=== PATIENT | female | born 1935 | race Caucasian/White ===

== ENCOUNTER 2017-05-02 20:54 | Inpatient (IN) ==
[2017-05-03] MEDS ORDERED: Ondansetron 4 MG/2 ML VIAL IVP PRN (00:52)
[2017-05-03] MEDS ORDERED: Naloxone 0.4 MG/ML INJ IVP PRN ×2 (00:52→18:24)
[2017-05-03] MEDS ORDERED: *HR* HYDROmorphone (PF) 1 MG/ML SYRINGE IVP PRN (00:52)
[2017-05-03] MEDS ORDERED: *HR* Dextrose 50 % in Water (Syg) 50 ML SYRINGE IVP PRN (01:00)
[2017-05-03] MEDS ORDERED: Dextrose Gel 15 GM PO PRN ×2 (01:00)
[2017-05-03] MEDS ORDERED: D5% in Water 1,000 ML IVC PRN (01:00)
--- NOTE | 2017-05-03 01:06 | Internal Med History&Physical ---
Date of Encounter: 05/03/17 Time of Encounter: 23:30 Assessment and Plan (1) Hip fracture, left Current visit: Yes Status: Acute CT left hip reported mildly displaced intertrochanteric fracture of the left hip with fracture through the lesser trochanter Orthopedic surgery consulted prior to transfer Continue pain control Nothing by mouth at this time for possible surgery in a.m. Hold Xarelto at this time. Qualifiers: Encounter type: initial encounter Fracture type: closed Qualified Code(s) : S72.002A - Fracture of unspecified part of neck of left femur, initial encounter for closed fracture (2) Atrial fibrillation Current visit: Yes Status: Chronic Rate controlled with beta lizzy, will continue Anticoagulated with Xarelto, will hold at this time Qualifiers: Atrial fibrillation type: chronic Qualified Code(s): I48.2 - Chronic atrial fibrillation (3) Hypertension Current visit: Yes Status: Chronic BP within acceptable range Continue home medications Qualifiers: Hypertension type: essential hypertension Qualified Code(s): I10 - Essential (primary) hypertension (4) TIA (transient ischemic attack) Current visit: Yes Status: Chronic Qualifiers: Transient cerebral ischemia type: unspecified Qualified Code(s): G45.9 - Transient cerebral ischemic attack, unspecified (5) Leukocytosis Current visit: Yes Status: Acute Likely reactive UA and CXR negative Patient afebrile will monitor off antibiotics at this time Qualifiers: Leukocytosis type: unspecified Qualified Code(s): D72.829 - Elevated white blood cell count, unspecified (6) Diabetes mellitus Current visit: Yes Status: Chronic Continue IV fluids Sliding-scale insulin algorithm as needed Hold oral antihyperglycemic agents at this time Accu-Checks every 6 hours while nothing by mouth We will closely monitor fingersticks and blood glucose Qualifiers: Diabetes mellitus type: type 2 Diabetes mellitus complication status: with unspecified complications Diabetes mellitus detention insulin use: without long lines operator use Qualified Code(s): E11.8 - Type 2 diabetes mellitus with unspecified complications (7) DVT prophylaxis Current visit: Yes Status: Acute IPCD Internal Medicine - H&P: HPI Chief complaint: transferred from [facility] for hip fracture Admitted From: Hospital to Hospital Transfer Plans for Post Hospital Care: Transfer [facility] Facility History of present illness: Ms. Gunn is a 81 year old female with PMH of diabetes, anemia, hyperlipidemia , hypothyroidism, TIA, atrial fibrillation on anticoagulation, hypertension, GERD, osteoarthritis, depression who was transferred from [facility] for management of left hip fracture. Patient was reported to have a mechanical fall, sustaining a fall to the head, and left hand, and left hip. CT head was negative for any intracranial bleed, CT left hip showed mildly displaced intertrochanteric fracture, and no fractures of the left hand were reported. Patient was closely monitored for any acute neurological change given the head trauma and patient being on anticoagulation. Repeat CT head was done after patient's arrival to [facility], which remained negative for any intracranial bleed. Patient's pain is controlled with IV pain medications. Patient denies any headache, lightheadedness, dizziness, chest pain, shortness of breath, abdominal pain, nausea, vomiting, fever, or chills. As per family, present at that site, patient was initially alert, oriented 3. However during my evaluation patient was only oriented to self, due to which a repeat CT head was obtained. Repeat CT head was negative for any intracranial abnormality or any acute bleeds. Patient had received 2 doses of IV morphine prior to her transfer, which could be contributing to her mental status change. Patient's vitals remained within acceptable range. No other neurological deficit was noted. Orthopedic surgery was called prior to transfer, Dr. Romano agreed to accept the patient has a consult. Patient's CODE STATUS is full code. Past Med Surg Social Fam HX - Past Medical History Medical history: atrial fibrillation, CVA, diabetes, hypertension, thyroid disease Psychiatric history: depression - Past Surgical History Surgical History: hysterectomy, orthopedic, other - Social History Smoking Status: Former smoker Alcohol use: none Drug use: none - Family History Sister Living Status: Cause of : cancer Hx Family Cancer: Yes Mother Living Status: Age at : 91 Hx Family Cancer: Yes (leukemia) Internal Medicine - H&P: Meds Atorvastatin Calcium [Lipitor] 20 mg PO 05/02/17 [History] Calcium Carbonate/Vitamin D3 [Oyster Shell Calcium-Vit D Tab] 05/02/17 [History ] Cholecalciferol (Vitamin D3) [Vitamin D] 1,000 unit PO 05/02/17 [History] Cyanocobalamin (Vitamin B-12) [Vitamin B-12] 1,000 mcg SL 05/02/17 [History] Duloxetine HCl [Cymbalta] 60 mg PO 05/02/17 [History] Folic Acid 1 mg PO DAILY 05/02/17 [History] HYDROcodone/Acet 10/325 mg [[place] 10-325 mg] 05/02/17 [History] Levothyroxine [Synthroid] 100 mcg PO 05/02/17 [History] Magnesium Oxide [Magnesium] 400 mg PO 05/02/17 [History] Metformin HCl [Metformin HCl ER] 1,000 mg PO BID 05/02/17 [History] Methocarbamol [Robaxin-750] 05/02/17 [History] Omeprazole 20 mg PO 05/02/17 [History] Pioglitazone HCl [Actos] 30 mg PO 05/02/17 [History] Potassium Chloride [K-Tab ER] 20 meq PO 05/02/17 [History] Rivaroxaban [Xarelto] 20 mg PO 05/02/17 [History] Sotalol [Betapace] 80 mg PO Q12HR 05/02/17 [History] predniSONE [PredniSONE] 10 mg PO DAILY 05/02/17 [History] 3 Allergy/AdvReac Type Severity Reaction Status Date / Time amiodarone Allergy Nausea Verified 05/02/17 23:35 Penicillins Allergy Hives Verified 05/02/17 23:35 Pneumococcal Vaccine Allergy See Verified 05/02/17 23:35 Comments Streptomycin Allergy Anaphylaxis Verified 05/02/17 23:35 Tetanus Vaccines and Toxoid Allergy See Verified 05/02/17 23:35 Comments All Systems PM: A 10-system review of systems was performed and is negative for pertinent findings except as documented above in the HPI. - Constitutional Constitutional: as per HPI - Constitutional Vitals: Temp Pulse Resp BP Pulse Ox 97.5 F L 90 18 117/71 97 05/02/17 23:24 05/02/17 23:24 05/02/17 23:24 05/02/17 23:24 05/02/17 23:24 General appearance: Present: A&O X 1, no acute distress, obese - Head Head exam: Present: atraumatic, normocephalic - Eye Eye exam: Present: conjuntiva pink, sclera anicteric Pupils: Present: miosis (Pinpoint pupils) - Respiratory Respiratory exam: Present: CTAB. Absent: accessory muscle use, rales, rhonchi, wheezes - Cardiovascular Cardiovascular exam: Present: RRR, +S1, +S2. Absent: diastolic murmur, gallop, rubs, systolic murmur - GI/Abdominal GI/Abdominal exam: Present: normal bowel sounds, soft, no peritoneal signs. Absent: distended, tenderness - Extremities Exam Extremities exam: Present: pedal edema, warm, radial pulses palpable and symmetrical. Absent: calf tenderness - Neurological Exam Neurological exam: Present: alert Internal Med - H&P Results - Labs CBC & Chem 7: 05/03/17 01:30 05/03/17 01:30 - Impressions ITS Impressions Head CT 05/03/17 23:37 IMPRESSION: No acute intracranial abnormality. 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 D/ / Duane Richter MD / Duane Richter MD Interpreting Provider: Duane Richter MD
[2017-05-03] MEDS: 0.9 % Sodium Chloride 1,000 ML IVC SCH ×2 (01:32→22:03)
[2017-05-03] MEDS: *HR* Morphine 2 MG/ML SYRINGE IVP PRN ×2 (01:37→09:21)
[2017-05-03 01:38] LABS: Basophils # 0.1 K/mcL (0.0-0.2); Basophils % 0.3 %; Eosinophils % 0.2 %; Hematocrit 33.7 % (35.3-44.9); Immature Granulocytes % 0.9 % (0-4); Immature Platelets 4.5 % (1.1-6.1); Lymphocytes # 1.5 K/mcL (0.6-4.6); Lymphocytes % 8.8 %; Mean Corpuscular HGB Conc 29.7 g/dL (31.6-35.5); Mean Corpuscular Volume 87.8 fL (83.0-100.0); Mean Platelet Volume 10.2 fL (9.4-12.4); Monocytes # 1.6 K/mcL (0.0-1.3); Monocytes % 9.3 %; Neutrophils # 13.6 K/mcL (1.6-8.9); Platelet Count 244 K/mcL (140-400); Red Blood Count 3.84 M/mcL (3.82-4.97); Red Cell Distribution Width 14.6 % (11.5-14.5); Segmented Neutrophils % 80.5 %
[2017-05-03 01:44] LABS: INR 1.4; Prothrombin Time 15.7 Seconds (9.4-12.1)
[2017-05-03 01:51] LABS: Alanine Aminotransferase 18 Units/L (0-55); Albumin/Globulin Ratio 1.1 (1.1-2.2); Alkaline Phosphatase 64 Units/L (38-126); Aspartate Amino Transferase 20 Units/L (5-34); BUN/Creatinine Ratio 34 (6-26); Bilirubin,Total 0.4 mg/dL (0.2-1.2); Blood Urea Nitrogen 31 mg/dL (7-20); Calcium 8.7 mg/dL (8.6-10.8); Carbon Dioxide 28 mEq/L (19-29); Chloride 104 mEq/L (98-109); Globulin 2.8 g/dL (2.4-3.5); Glucose 164 mg/dL (70-99); Osmolality,Calculated 306 (280-300); Phosphorous 4.6 mg/dL (2.3-4.7); Potassium 4.5 mEq/L (3.5-4.5); Sodium 143 mEq/L (136-145); Total Protein 5.8 g/dL (6.0-8.3); eGFR For African Americans > 60 (> 60); eGFR For Non-African Americans > 60 (> 60)
[2017-05-03] MEDS: Magnesium Sulfate 2 GM in D5% in Water 100 ML IVPB SCH ×2 (02:15→06:42)
[2017-05-03] MEDS: Insulin LISPRO 300 UNITS/3 ML VIAL SQ SCH ×3 (06:34→22:11)
--- NOTE | 2017-05-03 07:44 | Orthopedic Consult Note ---
Date of Encounter: 05/03/17 Time of Encounter: 07:51 Assessment and Plan (1) Hip fracture, left Current Visit: Yes Status: Acute I did discuss the diagnosis in great detail with the patient as well as her son who is power of ip technology transactions attorney. The patient does have a left subtrochanteric hip fracture. Treatment options were discussed and the recommendation was for reduction and internal fixation in order to stabilize the left proximal femur with a goal of controlling her pain and hoping to facilitate nursing care. The risks discussed included but were not limited to stiffness, bleeding, infection , blood clots, damage to neurovascular structures, tendons, ligaments, and bone. Also discussed was the risk of continued symptoms and possible need for further procedures. I did discuss the anesthesia risks including stroke, heart attack, and . The patient is aware of the risk of requiring a blood transfusion especially given her low hemoglobin preoperatively. I did discuss the reasonable, foreseeable postoperative course with the patient which will likely include a stay at a long-term facility for rehabilitation. I did discuss the risks of malunion, nonunion, hardware failure, and wound healing issues. She is on Xarelto and has been off this for about 24 hours. My recommendation is to proceed with internal fixation of the left hip later this afternoon pending medical clearance. I explained this all to the patient in simple terms and they did wish to proceed and consent was obtained. Qualifiers: Encounter type: initial encounter Fracture type: closed Qualified Code(s) : S72.002A - Fracture of unspecified part of neck of left femur, initial encounter for closed fracture History of Present Illness HPI: Ms. Gunn is a 81 year old female with diabetes, anemia, hyperlipidemia, hypothyroidism, history of TIA, atrial fibrillation on xarelto, hypertension, GERD, osteoarthritis, and depression. It has been about 24 hours since her last dose of Xarelto. She lives independently in a private residence and is a walker assisted ambulator. She was seen at [facility] after a non-syncopal fall while trying to reach for a comb. She is transferred to our institution for definitive management after being found to have a left subtrochanteric hip fracture. On my evaluation she is complaining of isolated pain localized to the left proximal thigh and groin region. She did sustain some superficial skin tears to the right hand without any fractures identified. She also had some left hand pain without any fractures identified as well. She denies any headaches, neck pain, chest pain, abdominal pain, bilateral upper extremity pain otherwise, and right lower extremity pain. She denies any left knee ankle or foot pain. No numbness, tingling, or any other associated signs or symptoms. She says the left lower extremity pain is significantly worse with any movement and better at rest. No other modifying factors. Past Med Surg Social Fam HX - Past Medical History Medical history: atrial fibrillation, CVA, diabetes, hypertension, thyroid disease Psychiatric history: depression - Past Surgical History Surgical History: hysterectomy, orthopedic, other - Social History Smoking Status: Former smoker Alcohol use: none Drug use: none - Family History Sister Living Status: Cause of : cancer Hx Family Cancer: Yes Mother Living Status: Age at : 91 Hx Family Cancer: Yes (leukemia) Medications and Allergies Atorvastatin Calcium [Lipitor] 20 mg PO DAILY 05/02/17 [History] Calcium Carbonate/Vitamin D3 [Oyster Shell Calcium-Vit D Tab] 1 tab PO DAILY [History] Cholecalciferol (Vitamin D3) [Vitamin D] 1,000 unit PO DAILY 05/02/17 [History] Cyanocobalamin (Vitamin B-12) [Vitamin B-12] 1,000 mcg SL DAILY 05/02/17 [ History] Duloxetine HCl [Cymbalta] 60 mg PO DAILY 05/02/17 [History] Folic Acid 1 mg PO DAILY 05/02/17 [History] HYDROcodone/Acet 10/325 mg [[place] 10-325 mg] 1 tab PO Q4H PRN 05/02/17 [History] Levothyroxine [Synthroid] 100 mcg PO DAILY 05/02/17 [History] Magnesium Oxide [Magnesium] 400 mg PO DAILY 05/02/17 [History] Metformin HCl [Metformin HCl ER] 1,000 mg PO BID 05/02/17 [History] Omeprazole 20 mg PO DAILY 05/02/17 [History] Pioglitazone HCl [Actos] 30 mg PO DAILY 05/02/17 [History] Potassium Chloride [K-Tab ER] 20 meq PO DAILY 05/02/17 [History] Rivaroxaban [Xarelto] 20 mg PO DAILY 05/02/17 [History] Sotalol [Betapace] 80 mg PO Q12HR 05/02/17 [History] predniSONE [PredniSONE] 10 mg PO DAILY 05/02/17 [History] 3 Allergy/AdvReac Type Severity Reaction Status Date / Time amiodarone Allergy Nausea Verified 05/02/17 23:35 Penicillins Allergy Hives Verified 05/02/17 23:35 Pneumococcal Vaccine Allergy See Verified 05/02/17 23:35 Comments Streptomycin Allergy Anaphylaxis Verified 05/02/17 23:35 Tetanus Vaccines and Toxoid Allergy See Verified 05/02/17 23:35 Comments All Systems Reviewed: Constitutional and musculoskeletal systems were reviewed and are negative unless otherwise stated in history of present illness. Physical Exam - Constitutional Vitals: Temp Pulse Resp BP Pulse Ox 97.6 F 85 16 130/78 93 05/03/17 06:42 05/03/17 06:42 05/03/17 06:42 05/03/17 06:42 05/03/17 06:42 Constitutional -Vitals reviewed -The patient is well developed and well nourished. -Mood is pleasant. -The patient is well groomed. Psychiatric -The patient is fully alert and oriented x 3. Respiratory: -Respiratory effort normal Abdomen: -Soft abdomen -Non tender -Non distended: Left upper extremity: -Mild ecchymosis on the left hand dorsum. -No tenderness to palpation throughout. -No significant pain with passive motion of the shoulder, elbow, wrist, and fingers within the limits of the bed. -Able to make an "OK" sign, cross the index and long fingers, and extend the thumb. -Sensation grossly intact to light touch throughout the median, radial, and ulnar distributions. -Radial pulse is present; Fingers have good capillary refill. Right upper extremity: -Multiple small superficial skin tears to the dorsum of the hand. -Mild tenderness to palpation over the right hand. -No significant pain with passive motion of the shoulder, elbow, wrist, and fingers within the limits of the bed. -Able to make an "OK" sign, cross the index and long fingers, and extend the thumb. -Sensation grossly intact to light touch throughout the median, radial, and ulnar distributions. -Radial pulse is present; Fingers have good capillary refill. Left lower extremity: -The extremity is mildly shortened and externally rotated. The overlying skin is intact. -There is tenderness in the groin region as well as the proximal lateral thigh. -I did not range the hip due to the known fracture. -No tenderness along the distal thigh, leg, ankle, foot, or toes. -Able to dorsiflex and plantarflex the ankle and toes. -Sensation is grossly intact to light touch throughout the sural, saphenous, superficial peroneal, and deep peroneal distributions. -Toes have good capillary refill. Right lower extremity: -No deformities. The overlying skin is intact. No obvious signs of acute trauma. -No tenderness to palpation throughout. -No pain with passive motion of the hip, knee, ankle, and toes within the limits of the bed. -No pain with axial loading of the thigh. -Able to dorsiflex and plantarflex the ankle and toes. -Sensation is grossly intact to light touch throughout the sural, saphenous, superficial peroneal, and deep peroneal distributions. -Toes have good capillary refill. Diagnostic Imaging: I did personally review and interpret x-rays of the pelvis and left femur which demonstrated a subtrochanteric hip fracture with displacement of the proximal fragment. CT scan of the head and neck did not show any acute findings. Results - Labs Result Diagrams: 05/03/17 06:49 05/03/17 06:49 Labs: Abnormal lab results WBC 16.9 K/mcL (4.3-11.1) H 05/03/17 01:30 Hgb 10.0 g/dL (11.5-15.4) L 05/03/17 01:30 Hct 33.7 % (35.3-44.9) L 05/03/17 01:30 MCH 26.0 pg (28.0-33.3) L 05/03/17 01:30 MCHC 29.7 g/dL (31.6-35.5) L 05/03/17 01:30 RDW 14.6 % (11.5-14.5) H 05/03/17 01:30 Neutrophils # 13.6 K/mcL (1.6-8.9) H 05/03/17 01:30 Monocytes # 1.6 K/mcL (0.0-1.3) H 05/03/17 01:30 PT 15.7 Seconds (9.4-12.1) H 05/03/17 01:30 BUN 31 mg/dL (7-20) H 05/03/17 01:30 BUN/Creatinine Ratio 34 (6-26) H 05/03/17 01:30 Glucose 164 mg/dL (70-99) H 05/03/17 01:30 POC Glucose 175 (58-89) H 05/02/17 23:28 Calculated Osmolality 306 (280-300) H 05/03/17 01:30 Magnesium 1.0 mg/dL (1.6-2.6) L 05/03/17 01:30 Serum Total Protein 5.8 g/dL (6.0-8.3) L 05/03/17 01:30 Albumin 3.0 g/dL (3.5-5.0) L 05/03/17 01:30 H & H 05/03/17 Range/Units 01:30 Hgb 10.0 L (11.5-15.4) g/dL Hct 33.7 L (35.3-44.9) % All other labs normal. Consult Discharge Plan - Plan Referrals: NONE,PCP [Primary Care Provider] -
[2017-05-03 08:17] LABS: BUN/Creatinine Ratio 34 (6-26); Blood Urea Nitrogen 29 mg/dL (7-20); Calcium 8.4 mg/dL (8.6-10.8); Carbon Dioxide 27 mEq/L (19-29); Chloride 105 mEq/L (98-109); Glucose 162 mg/dL (70-99); Magnesium 1.7 mg/dL (1.6-2.6); Osmolality,Calculated 303 (280-300); Phosphorous 4.3 mg/dL (2.3-4.7); Potassium 4.4 mEq/L (3.5-4.5); Sodium 142 mEq/L (136-145); eGFR For African Americans > 60 (> 60); eGFR For Non-African Americans > 60 (> 60)
[2017-05-03 09:19] LABS: Basophils % 0.3 %; Eosinophils # 0.1 K/mcL (0.0-0.6); Eosinophils % 0.5 %; Hematocrit 30.2 % (35.3-44.9); Immature Granulocytes % 0.8 % (0-4); Lymphocytes # 1.6 K/mcL (0.6-4.6); Lymphocytes % 11.8 %; Mean Corpuscular HGB Conc 29.8 g/dL (31.6-35.5); Mean Corpuscular Hemoglobin 26.2 pg (28.0-33.3); Mean Platelet Volume 11.1 fL (9.4-12.4); Monocytes # 1.4 K/mcL (0.0-1.3); Monocytes % 10.3 %; Neutrophils # 10.2 K/mcL (1.6-8.9); Platelet Count 216 K/mcL (140-400); Red Blood Count 3.43 M/mcL (3.82-4.97); Red Cell Distribution Width 14.7 % (11.5-14.5); Segmented Neutrophils % 76.3 %
[2017-05-03] MEDS: predniSONE 10 MG TABLET PO SCH (09:20)
[2017-05-03] MEDS: Magnesium Oxide 400 MG TABLET PO SCH (09:20)
--- NOTE | 2017-05-03 14:58 | Anesthesia Evaluation PreOp ---
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: TIA Other Medical History: Diabetes Type II, Thyroid (Hypothyroid) Anesthesia History: Past Anesthesia (back sx 2-3 years ago), Problems (slow to wake up, had to remain intubated for hours after back sx) : No Alcohol Use: none Drug use: none Medications and Allergies Atorvastatin Calcium [Lipitor] 20 mg PO DAILY 05/02/17 [History] Calcium Carbonate/Vitamin D3 [Oyster Shell Calcium-Vit D Tab] 1 tab PO DAILY [History] Cholecalciferol (Vitamin D3) [Vitamin D] 1,000 unit PO DAILY 05/02/17 [History] Cyanocobalamin (Vitamin B-12) [Vitamin B-12] 1,000 mcg SL DAILY 05/02/17 [ History] Duloxetine HCl [Cymbalta] 60 mg PO DAILY 05/02/17 [History] Folic Acid 1 mg PO DAILY 05/02/17 [History] HYDROcodone/Acet 10/325 mg [[place] 10-325 mg] 1 tab PO Q4H PRN 05/02/17 [History] Levothyroxine [Synthroid] 100 mcg PO DAILY 05/02/17 [History] Magnesium Oxide [Magnesium] 400 mg PO DAILY 05/02/17 [History] Metformin HCl [Metformin HCl ER] 1,000 mg PO BID 05/02/17 [History] Omeprazole 20 mg PO DAILY 05/02/17 [History] Pioglitazone HCl [Actos] 30 mg PO DAILY 05/02/17 [History] Potassium Chloride [K-Tab ER] 20 meq PO DAILY 05/02/17 [History] Rivaroxaban [Xarelto] 20 mg PO DAILY 05/02/17 [History] Sotalol [Betapace] 80 mg PO Q12HR 05/02/17 [History] predniSONE [PredniSONE] 10 mg PO DAILY 05/02/17 [History] 3 Allergy/AdvReac Type Severity Reaction Status Date / Time amiodarone Allergy Nausea Verified 05/02/17 23:35 Penicillins Allergy Hives Verified 05/02/17 23:35 Pneumococcal Vaccine Allergy See Verified 05/02/17 23:35 Comments Streptomycin Allergy Anaphylaxis Verified 05/02/17 23:35 Tetanus Vaccines and Toxoid Allergy See Verified 05/02/17 23:35 Comments - Meds/Allergy Pre-op Review Medications Reviewed: Yes Allergies Reviewed: Yes Beta Blockers on Current Med List: Yes If Beta Blockers taken, Date/Time (Last Dose taken): 06:34 05/03/2017 Anesthesia Results - Labs 05/03/17 06:49 05/03/17 06:49 - Imaging EKG: image reviewed (SR) Anesthesia Exam O2 Sat Height 1.6 m Weight 79.832 kg O2 Sat by Pulse Oximetry 93 O2 Sat by Pulse Oximetry 93 O2 Sat by Pulse Oximetry 100 O2 Sat by Pulse Oximetry 97 Vital Signs Temp Pulse Resp BP Pulse Ox 97.5 F L 90 18 117/71 97 05/02/17 23:24 05/02/17 23:24 05/02/17 23:24 05/02/17 23:24 05/02/17 23:24 Vital Signs/O2 Sat, Most Current Temp Pulse Resp BP Pulse Ox 98.5 F 83 16 132/78 93 05/03/17 11:13 05/03/17 11:13 05/03/17 11:13 05/03/17 11:13 05/03/17 11:13 Height: 5'3'' Weight: 176# NPO (# of Hours): > 8 hrs Pain Scale: 0 Pain Scale Used: Numeric (1 - 10) - HEENT Pupil (Motor): Pupils equal, EOMI Mallampati: III Teeth: Normal Oral Opening: Greater than 3 - TECHNICIAN AUTOMATIC LOC: Oriented TECHNICIAN AUTOMATIC Motor: Normal RUE, Normal LUE, Normal RLE, Normal LLE, Normal Face TECHNICIAN AUTOMATIC Sensory: Normal: RUE, LUE, RLE, LLE, Face - Cardiac Rhythm: Regular Murmur: None JVD: No Carotid Bruit: No - Pulmonary Breath Sounds: bilateral Clear Respiratory Effort: Symmetrical Anesthesia Assess/Plan ASA Score: 3 Modified [place] Scale for Level of Consciousness: Cooperative, oriented, and tranquil Anesthetic Plan: General Autologous Blood: Yes Monitoring Plan: Standard Monitors Recovery Plan: PACU
[2017-05-03] MEDS ORDERED: *HR* Midazolam HCl 2 MG/2 ML VIAL ONE (15:34)
[2017-05-03] MEDS ORDERED: *HR* FentaNYL (PF) 100 MCG/2 ML VIAL ONE (15:34)
[2017-05-03] MEDS ORDERED: *HR* Propofol 200 MG/20 ML VIAL IVP ONE (15:34)
--- NOTE | 2017-05-03 16:40 | Internal Med Progress Note ---
Date of Encounter: 05/03/17 Time of Encounter: 08:30 - Assessment and plan (1) Hip fracture, left Current Visit: Yes Status: Acute Assessment and plan: Plan for surgery later today. Continue supportive care and pain control. Patient cleared from a medical standpoint for surgery at this time. At intermediate risk for complications. Qualifiers: Encounter type: initial encounter Fracture type: closed Qualified Code(s) : S72.002A - Fracture of unspecified part of neck of left femur, initial encounter for closed fracture (2) Leukocytosis Current Visit: Yes Status: Acute Assessment and plan: Improving. Likely due to acute fracture. Qualifiers: Leukocytosis type: unspecified Qualified Code(s): D72.829 - Elevated white blood cell count, unspecified (3) Atrial fibrillation Current Visit: Yes Status: Chronic Assessment and plan: Rate controlled. Holding anticoagulation at this time Qualifiers: Atrial fibrillation type: chronic Qualified Code(s): I48.2 - Chronic atrial fibrillation (4) Hypertension Current Visit: Yes Status: Chronic Assessment and plan: Blood pressure is well controlled Qualifiers: Hypertension type: essential hypertension Qualified Code(s): I10 - Essential (primary) hypertension (5) TIA (transient ischemic attack) Current Visit: No Status: Chronic Assessment and plan: Prior TIA. Qualifiers: Transient cerebral ischemia type: unspecified Qualified Code(s): G45.9 - Transient cerebral ischemic attack, unspecified (6) DVT prophylaxis Current Visit: Yes Status: Acute (7) Diabetes mellitus Current Visit: Yes Status: Chronic Assessment and plan: Monitor blood sugars. Continue sliding scale insulin Qualifiers: Diabetes mellitus type: type 2 Diabetes mellitus complication status: with unspecified complications Diabetes mellitus superintendent terminal insulin use: without superintendent terminal use Qualified Code(s): E11.8 - Type 2 diabetes mellitus with unspecified complications (8) Anemia Current Visit: Yes Status: Chronic Assessment and plan: Patient has chronic anemia with baseline hemoglobin between 8-10. Patient has had iron deficiency. We will monitor blood counts closely. Transfuse if needed post surgery. Will check iron, folic acid and vitamin B12 levels. Qualifiers: Anemia type: unspecified type Qualified Code(s): D64.9 - Anemia, unspecified - Subjective Interval history: Patient complains of pain in left lower extremity. Controlled with pain medications that she is receiving. Has been evaluated by orthopedics and scheduled for surgery later today. - Constitutional Vitals: Temp Pulse Resp BP Pulse Ox 98.5 F 83 16 132/78 93 05/03/17 11:13 05/03/17 11:13 05/03/17 11:13 05/03/17 11:13 05/03/17 11:13 General appearance: Present: A&O X 1, no acute distress, obese, answers questions appropriately - Neck Neck exam general surgery: Present: supple, trachea midline. Absent: lymphadenopathy - Respiratory Respiratory exam: Present: CTAB. Absent: accessory muscle use, rales, rhonchi, wheezes - Cardiovascular Cardiovascular exam: Present: RRR, +S1, +S2. Absent: diastolic murmur, gallop, rubs, systolic murmur - Extremities Exam Extremities exam: Present: tenderness (Left lower extremity), warm, radial pulses palpable and symmetrical. Absent: calf tenderness, cyanotic, pedal edema - Neurological Exam Neurological exam: Present: CN II-XII intact, oriented X3, no focal deficits. Absent: facial droop, speech deficit - Skin Skin exam: Present: dry, intact Internal Medicine: Result - Labs CBC & Chem 7: 05/03/17 06:49 05/03/17 06:49 Labs: Short CBC 05/03/17 05/03/17 Range/Units 01:30 06:49 WBC 16.9 H 13.4 H (4.3-11.1) K/mcL Hgb 10.0 L 9.0 L (11.5-15.4) g/dL Hct 33.7 L 30.2 L (35.3-44.9) % Plt Count 244 216 (140-400) K/mcL Neutrophils # 13.6 H 10.2 H (1.6-8.9) K/mcL BMP 05/03/17 05/03/17 01:30 06:49 Sodium 143 142 Potassium 4.5 4.4 Chloride 104 105 Carbon Dioxide 28 27 BUN 31 H 29 H Creatinine 0.90 0.86 Glucose 164 H 162 H Calcium 8.7 8.4 L Liver Function 05/03/17 Range/Units 01:30 Total Bilirubin 0.4 (0.2-1.2) mg/dL AST 20 (5-34) Units/L ALT 18 (0-55) Units/L Alkaline Phosphatase 64 (38-126) Units/L Albumin 3.0 L (3.5-5.0) g/dL - ABG Interpretation ABG results: PT/INR, D-dimer PT 15.7 Seconds (9.4-12.1) H 05/03/17 01:30 - Impressions Impressions Femur X-Ray 05/03/17 05:41 IMPRESSION: 1. Traumatic left intertrochanteric femoral fracture with lateral apex angulation. D/ / Dayo Luz MD / Dayo Luz MD Interpreting Provider: Dayo Luz MD Pelvis X-Ray 05/03/17 05:42 IMPRESSION: Three-part intertrochanteric fracture left hip. D/ / Sidney Maynard MD / Sidney Maynard MD Interpreting Provider: Sidney Maynard MD Head CT 05/03/17 23:37 IMPRESSION: No acute intracranial abnormality. 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 D/ / Duane Richter MD / Duane Richter MD Interpreting Provider: Duane Richter MD - VTE Documentation of Mechanical Device: Graduated compression elastic hosiery Consult Discharge Plan - Plan Referrals: NONE,PCP [Primary Care Provider] -
[2017-05-03] MEDS ORDERED: EPHEDrine 50 MG/ML VIAL ONE (17:26)
[2017-05-03] MEDS ORDERED: Neosporin OINT 15 GM TUBE TP ONE (18:08)
[2017-05-03 18:09] LABS: Basophils % 0.2 %; Eosinophils % 0.2 %; Hematocrit 27.6 % (35.3-44.9); Hemoglobin 8.1 g/dL (11.5-15.4); Immature Granulocytes % 1.1 % (0-4); Immature Platelets 5.4 % (1.1-6.1); Lymphocytes # 2.1 K/mcL (0.6-4.6); Lymphocytes % 12.3 %; Mean Corpuscular HGB Conc 29.3 g/dL (31.6-35.5); Mean Corpuscular Hemoglobin 25.9 pg (28.0-33.3); Mean Corpuscular Volume 88.2 fL (83.0-100.0); Mean Platelet Volume 10.4 fL (9.4-12.4); Monocytes # 1.3 K/mcL (0.0-1.3); Monocytes % 7.8 %; Neutrophils # 13.5 K/mcL (1.6-8.9); Platelet Count 218 K/mcL (140-400); Red Blood Count 3.13 M/mcL (3.82-4.97); Red Cell Distribution Width 14.6 % (11.5-14.5); Segmented Neutrophils % 78.4 %
[2017-05-03 18:21] LABS: Alanine Aminotransferase 15 Units/L (0-55); Albumin 2.5 g/dL (3.5-5.0); Alkaline Phosphatase 58 Units/L (38-126); Aspartate Amino Transferase 20 Units/L (5-34); BUN/Creatinine Ratio 27 (6-26); Bilirubin,Total 0.5 mg/dL (0.2-1.2); Blood Urea Nitrogen 24 mg/dL (7-20); Calcium 8.1 mg/dL (8.6-10.8); Carbon Dioxide 25 mEq/L (19-29); Chloride 104 mEq/L (98-109); Globulin 2.5 g/dL (2.4-3.5); Glucose 187 mg/dL (70-99); Osmolality,Calculated 297 (280-300); Potassium 4.7 mEq/L (3.5-4.5); Sodium 139 mEq/L (136-145); eGFR For African Americans > 60 (> 60); eGFR For Non-African Americans > 60 (> 60)
[2017-05-03 18:29] LABS: INR 1.2; Prothrombin Time 13.3 Seconds (9.4-12.1)
[2017-05-03 18:32] LABS: Activated Partial Thrombo Time 30.8 Seconds (26.0-36.0)
[2017-05-03] MEDS ORDERED: *HR* HYDROmorphone (PF) 1 MG/ML SYRINGE IVP ONE (18:40)
[2017-05-03] MEDS ORDERED: Acetaminophen IV 1,000 MG/100 ML INFUS..BTL IVPB ONE (18:40)
[2017-05-03] MEDS ORDERED: *HR* HYDROmorphone (PF) 1 MG/ML SYRINGE ONE (18:45)
--- NOTE | 2017-05-03 19:21 | Orthopedic Operative Note ---
Date of procedure: 05/03/17 Procedure: OPERATIVE REPORT DATE OF PROCEDURE: 05/03/2017 SURGEON: Mike Romano MD DESK REPORTER(S): There are no assistants PREOPERATIVE DIAGNOSIS: Left subtrochanteric hip fracture POSTOPERATIVE DIAGNOSIS: Intertrochanteric left hip fracture with subtrochanteric extension PROCEDURE: Open reduction and medullary nail fixation of the left proximal femur ANESTHESIA: General anesthesia PREOPERATIVE ANTIBIOTICS: 900 milligrams of clindamycin ESTIMATED BLOOD LOSS: 175 milliliters IMPLANTS: Shanks gamma 3 hip nail measuring 10 mm x 360 mm x 125 degrees with a 95 mm lag screw and 2 distal interlocking screws; Kinamed SuperCable PREOPERATIVE NOTE AND INDICATIONS: This patient is an 81-year-old female who sustained a left proximal femur fracture and was seen initially at [facility]. She was transferred to our hospital for definitive management. The recommendation was for reduction and stabilization in order to realign the hip and provide pain control and help facilitate nursing care. The patient is on Xarelto and had been off it for over 24 hours. It was felt that the benefits of stabilizing the hip today outweighed the risks of waiting. She did have a low preoperative hemoglobin and I did indicate to the patient that she will be at a high risk of requiring a blood transfusion. She did wish to proceed. The surgical plan was discussed with the patient. The risks, benefits, alternatives, and potential complications of this procedure were discussed with the patient including injury to veins, arteries, nerves, tendons, ligaments, and bone. Also discussed were the risks of infection, bleeding, pain, blood clots, the possible need for a blood transfusion, the possible need for further procedures, heart attack, stroke, and . Additional risks include malunion , nonunion, hardware failure, and revision surgeries. All of this was explained in simple terms, and the patient verbalized understanding and wished to proceed. Consent was given to proceed with surgery. PROCEDURE: The patient was seen in the preoperative holding area where the identify and the consent were confirmed. The left hip was marked. Final questions were answered. The patient was brought back to the operating room. A huddle was performed with the patient and all vital surgical team members confirming patient identity, the correct procedure, and the correct operative site. General anesthesia was administered. The patient was placed onto the traction table and the right lower extremity is flexed and abducted out of the way. The operative extremity was placed in traction. X-rays were obtained before prepping demonstrated that length and rotation was reestablished but due to displacement it was felt that an open reduction would be required. The left lower extremity was prepped and draped in the usual sterile fashion. A surgical time out was performed immediately preceding the incision with all personnel in the operating room to confirm patient identity, the correct operative site and extremity, correct radiographic studies, availability of appropriate surgical equipment, and agreement on the planned procedure. In longitudinal incision was made at the level of the fracture and dissection proceeded through the subcutaneous tissue and hemostasis was achieved with electrocautery. The fascia was opened and the fracture was identified. A hooked cable passer was passed around the bone followed by placement of a Kinamed SuperCable which was tensioned to 120 pounds and this reduced the fracture very nicely. A longitudinal incision was made proximal to the greater trochanter and dissection proceeded through the subcutaneous tissue down to the gluteal fascia which was opened. The patient had a very large panniculus and though this was taped back did cause difficulties in placement of the initial guidewire. The guidewire was placed in the appropriate starting point and a curved awl was used to open the proximal femur. The ball-tipped guidewire was placed down the shaft of the femur. Length was measured and reaming commenced beginning at 9 mm and going up in 0.5 millimeter increments to 11-1/2 mm which had good chatter. Due to her obesity it was very difficult to ream along the medial side of the opening. The definitive 360 mm x 10 mm nail was placed and using the triple sleeve a guidewire was drilled into the femoral head. This was measured after being determined to be in the appropriate position. This was drilled to 95 mm and the definitive 95 mm lag screw was placed. The x-ray was brought down to the knee and flipped into lateral position for perfect [place] technique. It was at this point that the anesthesia providers were not satisfied with IV access and after attempting to obtain subclavian central lines which were unsuccessful they attempted right femoral vein central line access was very difficult related to the limb being flexed and abducted. Therefore they also began attempting left femoral vein access from the right side of the body. Because of the position of the anesthesia providers, an AP of the knee could not be obtained after the placement of 2 interlocking screws. Therefore the decision was made to irrigate and close the wounds so that the right lower extremity could be brought out of the leg rodriguez and access to both groins would be available. Final x-rays would be obtained after placement of the central venous catheter. Therefore the wounds were irrigated and the deep fascia was closed with 0 Vicryl stitches followed by the skin with 3-0 Vicryl and yovani. Sterile dressings were applied and the sterile curtain was taken down and the right lower extremity taken out of the leg rodriguez and laid flat so that anesthesia had access to both groins. A successful line was placed into the right femoral vein. After this was dressed, the x-ray machine was brought in for final x-rays which were obtained and showed that the hardware was in good position though the proximal most of the distal locking screws was about 2 mm proud but not felt to be functionally relevant and therefore was not changed. The patient was placed onto her hospital table in stable condition. The instrument, sponge, and needle counts were correct after wound closure. POST OPERATIVE PLAN: Weight Bearing: Nonweightbearing to the left lower extremity DVT Prophylaxis: Will resume Xarelto tomorrow Activity: Activities as tolerated with the assistance of therapy Wound Care: Daily dressing changes on postoperative day 2 Perioperative antibiotic prophylaxis: 2 doses of clindamycin Social work for discharge planning Follow Up: 2 weeks from surgery date
--- NOTE | 2017-05-03 19:33 | Anesthesia Procedures ---
Date of Encounter: 05/03/17 Time of Encounter: 18:30 Procedures: Anesthesia - Central Line Placement Right Femoral Time out performed: No (Intraop need for functional IV access) Patient placed on monitor/pulse ox: Yes (GETA already in progress) prep: mask, gown, gloves Central line prep: Chlorhexidine scrub, sterile drapes applied Ultrasound used for placement: Yes Technique: Seldinger Lumen Inserted: triple Post procedure: sutured in place, good blood return, all ports aspirated, flushed, capped, sterile dressing applied Complications: none Vitals: see Anesthesia Record Anes Supervising Prov Stmt: IV access infiltrated/lost shortly after induction. Multiple attempts at Peripheral IV access unsuccessful prompting decision to pursue central access. Initial attempt at R-subclavian met resistance advancing triple lumen over wire. REpeat attempt at R-SC aborted over concern re: arterial puncture. Strong pressure held >10 minutes without any evidence of subsequent hematoma. Successful placement of R-femoral line without difficulty. Elena Griffin MD
--- NOTE | 2017-05-03 19:42 | Anesthesia Evaluation Post Op ---
Date of Encounter: 05/03/17 Time of Encounter: 19:41 - Vital Signs Vital Signs: Vital Signs/O2 Sat/Glucose, Most Current Temp Pulse Resp BP Pulse Ox 05/03/17 19:30 78 16 105/52 96 05/03/17 19:20 99.0 F 79 18 111/54 96 05/03/17 19:10 79 14 108/66 94 05/03/17 19:00 83 16 109/68 95 05/03/17 18:50 98.9 F 85 16 116/55 96 05/03/17 18:40 85 16 117/63 92 05/03/17 18:30 78 16 112/74 96 05/03/17 18:20 98.1 F 84 16 109/50 100 - Lungs Lungs: Clear Ascult./Percussion - Airway Airway: Non-obstructed - Cardiovascular Baseline Rhythm - Mental Status Mental Status: Asleep without brisk response to light stimulation - Pain Pain Scale: 1 Pain Scale used: Anthony (Faces) ("hurting a little bit") - Nausea Vomiting Nausea Vomiting: Not Present - Hydration Hydration: NPO, Moscoso catheter - Discharge PostOp Status: Transfer Patient to floor Anes Supervising Prov Stmt: Pt seen/evaluated, VSS And pt has met criteria for discharge to floor. - MD Gaby
[2017-05-03] MEDS ORDERED: 0.9 % Sodium Chloride 1,000 ML IVC ONE (23:28)
[2017-05-04] MEDS ORDERED: 0.9 % Sodium Chloride 250 ML ONE ×3 (01:32→21:52)
[2017-05-04] MEDS: Insulin LISPRO 300 UNITS/3 ML VIAL SQ SCH ×4 (01:40→18:08)
--- NOTE | 2017-05-04 03:54 | Event Note ---
Date of Encounter: 05/04/17 Time of Encounter: 03:53 81 F who was drawn to my attention by RN immediate post-op RN noted that patient has been hypotensive since arrival from LLE nail fixation for her L femoral fracture Upon evaluation, patient was hypotensive with MAP ranging from 45-60 Orthopedic op-note reviewed Hb today prior to procedure was 8.1 Apparently, patient was placed a R femoral vein access intra-op due to poor access. There was an attempt on her R SC prior to successful RLE femoral vein cannulation ON exam, she is hypotensive but able to communicate in monosyllables She was laying flat in bed in no form of respiratory distress O2 sat was 98% on 2L O2 by NC. Patient was lethargic but easily rousable Her Chest was CTAB anteriorly Her LLE wound dressing was clean and dry and there was no visible hematoma collection Her L foot is well perfused with no evidence of compartment syndrome Her R lower extremity is unremarkable on exam except for a femoral central access Assessment *Immediate post-op hypotension p -Resuscitate with 3L IVF saline -Give 2 units RBC STAT -Obtain STAT CXR, she is currently unstable for a CT scan STAT -Strict Intake/Output monitoring -We will start on pressors if she does not respond to fluid resuscitation Patient is full code, and high risk of cardiac arrest, respiratory failure and mechanical intubation
[2017-05-04] MEDS: Clindamycin 900 MG/50 ML 900 MG/50 ML IV.SOLN IVPB SCH ×2 (05:45→11:21)
--- NOTE | 2017-05-04 08:09 | Electrocardiograph Report ---
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
[2017-05-04] MEDS: predniSONE 10 MG TABLET PO SCH (08:16)
[2017-05-04] MEDS: Magnesium Oxide 400 MG TABLET PO SCH (08:16)
[2017-05-04] MEDS: 0.9 % Sodium Chloride 1,000 ML IVC SCH ×2 (08:18→08:19)
--- NOTE | 2017-05-04 09:47 | Orthopedics Progress Note ---
Date of Encounter: 05/04/17 Time of Encounter: 09:43 - Assessment and Plan (1) Hip fracture, left Current Visit: Yes Status: Acute Qualifiers: Encounter type: initial encounter Fracture type: closed Qualified Code(s) : S72.002A - Fracture of unspecified part of neck of left femur, initial encounter for closed fracture Subjective Interval history: S: Patient is quite drowsy this morning but arousable. Expected left hip and proximal thigh pain controlled with medication. No new complaints. Has not worked with therapy yet. Of note the patient did have low BPs last night and the hospitalist had ordered 2 units to be transfused. O: Afebrile, still with low BPs The left thigh dressings are clean, dry, and intact. Moderate pain with passive motion of the thigh and hip. She grossly flexes and extends the ankle and toes. The foot is grossly sensate and well-perfused. Labs are pending A: Post internal fixation of the left proximal femur with acute blood loss anemia from injury and surgery P: Physical and occupational therapy when able Nonweightbearing to the left lower extremity given the comminution of her fracture Up to a chair twice a day Xarelto for DVT prophylaxis and sequential compression devices Daily dressing changes starting tomorrow Moscoso out today if okay with the hospitalist Anticipate retirement facility for rehabilitation upon discharge Objective Vital signs: Vital Signs Temp Pulse Resp BP Pulse Ox 05/04/17 08:04 120/61 05/04/17 07:51 99.1 F 73 18 84/45 95 05/04/17 06:41 98.4 F 75 18 101/46 100 05/04/17 05:34 98.4 F 73 18 114/70 99 05/04/17 05:19 98.8 F 87 16 95/43 05/04/17 05:13 98.8 F 76 160 91/48 05/04/17 04:05 99.9 F H 73 18 99/79 100 05/04/17 02:15 98.5 F 74 18 84/53 100 05/04/17 02:00 98.4 F 73 88/56 100 05/03/17 23:05 98.6 F 74 20 79/51 100 05/03/17 19:44 98.2 F 77 16 97/57 100 05/03/17 19:30 78 16 105/52 96 05/03/17 19:20 99.0 F 79 18 111/54 96 05/03/17 19:10 79 14 108/66 94 05/03/17 19:00 83 16 109/68 95 05/03/17 18:50 98.9 F 85 16 116/55 96 05/03/17 18:40 85 16 117/63 92 05/03/17 18:30 78 16 112/74 96 05/03/17 18:20 98.1 F 84 16 109/50 100 05/03/17 11:13 98.5 F 83 16 132/78 93 Intake and Output 05/03/17 05/04/17 05/04/17 23:59 07:59 15:59 Intake Total 220 / 220 573 / 573 Output Total 175 / 175 Balance 45 / 45 573 / 573 Intake: IV Fluids 220 / 220 0.9 % Sodium Chloride 1,000 ML 120 / 120 @ 75 mls/hr IVC .[id number] ZULEYKA Rx #:[id number] Ofirmev 1,000 mg/100 ml 1,000 100 / 100 mg In 100 ml @ 400 mls/hr IVPB ONCE ONE Rx#:[id number] Blood Product 573 / 573 Rbcs Leuko Poor As-1 Irr Unit 300 / 300 [id number] Rbcs Leuko Poor As-3 Irr Unit 273 / 273 [id number] Output: Estimated Blood Loss 175 / 175 Other: Blood Glucose* 150 142 - Labs CBC & BMP: 05/03/17 17:57 05/03/17 17:57 Labs: Abnormal lab results WBC 17.3 K/mcL (4.3-11.1) H 05/03/17 17:57 RBC 3.13 M/mcL (3.82-4.97) L 05/03/17 17:57 Hgb 8.1 g/dL (11.5-15.4) L 05/03/17 17:57 Hct 27.6 % (35.3-44.9) L 05/03/17 17:57 MCH 25.9 pg (28.0-33.3) L 05/03/17 17:57 MCHC 29.3 g/dL (31.6-35.5) L 05/03/17 17:57 RDW 14.6 % (11.5-14.5) H 05/03/17 17:57 Neutrophils # 13.5 K/mcL (1.6-8.9) H 05/03/17 17:57 PT 13.3 Seconds (9.4-12.1) H 05/03/17 17:57 Potassium 4.7 mEq/L (3.5-4.5) H 05/03/17 17:57 BUN 24 mg/dL (7-20) H 05/03/17 17:57 BUN/Creatinine Ratio 27 (6-26) H 05/03/17 17:57 Glucose 187 mg/dL (70-99) H 05/03/17 17:57 POC Glucose 125 (58-89) H 05/04/17 01:53 Calcium 8.1 mg/dL (8.6-10.8) L 05/03/17 17:57 Serum Total Protein 5.0 g/dL (6.0-8.3) L 05/03/17 17:57 Albumin 2.5 g/dL (3.5-5.0) L 05/03/17 17:57 Albumin/Globulin Ratio 1.0 (1.1-2.2) L 05/03/17 17:57 - VTE Documentation of Mechanical Device: Graduated compression elastic hosiery Consult Discharge Plan - Plan Referrals: NONE,PCP [Primary Care Provider] -
[2017-05-04 10:08] LABS: Hematocrit 26.8 % (35.3-44.9); Hemoglobin 8.5 g/dL (11.5-15.4); Mean Corpuscular HGB Conc 31.7 g/dL (31.6-35.5); Mean Corpuscular Hemoglobin 25.9 pg (28.0-33.3); Mean Platelet Volume 11.2 fL (9.4-12.4); Nucleated Red Blood Cells 0.3 /100 WBC (0); Platelet Count 139 K/mcL (140-400); Red Blood Count 3.28 M/mcL (3.82-4.97); Red Cell Distribution Width 16.8 % (11.5-14.5)
[2017-05-04 10:53] LABS: Mean Corpuscular Volume 81.7 fL (83.0-100.0)
[2017-05-04 11:27] LABS: Lymphocytes # 0.8 K/mcL (0.6-4.6); Monocytes # 0.6 K/mcL (0.0-1.3); Neutrophils # 12.4 K/mcL (1.6-8.9)
[2017-05-04 11:28] LABS: Large Platelets Present (Not Present); Platelet Estimate Slight Decrease (Normal)
[2017-05-04 11:34] LABS: Calcium 7.7 mg/dL (8.6-10.8); Potassium 4.5 mEq/L (3.5-4.5)
[2017-05-04 14:46] LABS: Folate 18.5 ng/mL (7.0-31.4)
[2017-05-04 14:51] LABS: Vitamin B12 > 2000 pg/mL (213-816)
--- NOTE | 2017-05-04 15:25 | Internal Med Progress Note ---
Date of Encounter: 05/04/17 Time of Encounter: 08:35 - Assessment and plan (1) Hip fracture, left Current Visit: Yes Status: Acute Assessment and plan: Status post open reduction and medullary nail fixation of the left proximal femur. Intraoperatively, patient did develop some complications did when central venous access was being obtained. Continue supportive care. Monitor vital signs closely. Orthopedics following. Qualifiers: Encounter type: initial encounter Fracture type: closed Qualified Code(s) : S72.002A - Fracture of unspecified part of neck of left femur, initial encounter for closed fracture (2) Leukocytosis Current Visit: Yes Status: Acute Assessment and plan: WBC count 13.8 today. We will monitor for now. Chest x-ray done last night showed left basilar atelectasis which is chronic for the patient based on review of prior chest x-rays. No fever reported. Lactic acid level is normal. Qualifiers: Leukocytosis type: unspecified Qualified Code(s): D72.829 - Elevated white blood cell count, unspecified (3) Atrial fibrillation Current Visit: Yes Status: Chronic Assessment and plan: Rate controlled. Sotalol on hold due to low blood pressure. We will resume that as her blood pressure improved Qualifiers: Atrial fibrillation type: chronic Qualified Code(s): I48.2 - Chronic atrial fibrillation (4) Hypertension Current Visit: Yes Status: Chronic Assessment and plan: Patient was hypotensive this morning. Antihypertensives have been held. Qualifiers: Hypertension type: essential hypertension Qualified Code(s): I10 - Essential (primary) hypertension (5) TIA (transient ischemic attack) Current Visit: No Status: Chronic Qualifiers: Transient cerebral ischemia type: unspecified Qualified Code(s): G45.9 - Transient cerebral ischemic attack, unspecified (6) DVT prophylaxis Current Visit: Yes Status: Acute Assessment and plan: Will resume Xarelto when her blood counts have stabilized (7) Diabetes mellitus Current Visit: Yes Status: Chronic Assessment and plan: Well-controlled. Continue current insulin regimen Qualifiers: Diabetes mellitus type: type 2 Diabetes mellitus complication status: with unspecified complications Diabetes mellitus intermediate manager insulin use: without intermediate manager use Qualified Code(s): E11.8 - Type 2 diabetes mellitus with unspecified complications (8) Anemia Current Visit: Yes Status: Chronic Assessment and plan: Acute on chronic anemia. Patient received 2 units of packed red blood cells last night. Since then her blood counts have remained stable. Acute anemia most likely due to blood loss from surgery. We will continue to monitor blood counts closely. Qualifiers: Anemia type: unspecified type Qualified Code(s): D64.9 - Anemia, unspecified (9) Hypotension Current Visit: Yes Status: Acute Assessment and plan: Likely from hypovolemia and blood loss from surgery. We will continue to monitor blood pressure closely. Continue gentle hydration. Monitor urine output. Qualifiers: Hypotension type: other hypotension type Qualified Code(s): I95.89 - Other hypotension - Subjective Interval history: Patient underwent surgery yesterday evening. Post surgery, she had become hypotensive and lethargic with decreased mentation. She received 2 units packed red blood cells and IV fluids overnight with improvement in her blood pressure. She remains lethargic but is able to wake up and answer some questions. She remains disoriented. - Constitutional Vitals: Temp Pulse Resp BP Pulse Ox 98.1 F 77 18 130/70 98 05/04/17 10:41 05/04/17 10:41 05/04/17 10:41 05/04/17 14:31 05/04/17 10:41 General appearance: Present: A&O X 1, no acute distress, obese, answers questions appropriately - Neck Neck exam general surgery: Present: supple, trachea midline. Absent: lymphadenopathy - Respiratory Respiratory exam: Present: CTAB. Absent: accessory muscle use, rales, rhonchi, wheezes - Cardiovascular Cardiovascular exam: Present: RRR, +S1, +S2. Absent: diastolic murmur, gallop, rubs, systolic murmur - GI/Abdominal GI/Abdominal exam: Present: normal bowel sounds, soft, no peritoneal signs. Absent: distended, tenderness - Extremities Exam Extremities exam: Present: warm, radial pulses palpable and symmetrical. Absent : calf tenderness, cyanotic, pedal edema - Neurological Exam Neurological exam: Present: altered, no focal deficits, strengths equal and symetr throughout. Absent: facial droop, speech deficit - Skin Skin exam: Present: dry, intact Internal Medicine: Result - Labs CBC & Chem 7: 05/04/17 09:50 05/04/17 09:50 Labs: Short CBC 05/03/17 05/04/17 Range/Units 17:57 09:50 WBC 17.3 H 13.8 H (4.3-11.1) K/mcL Hgb 8.1 L 8.5 L (11.5-15.4) g/dL Hct 27.6 L 26.8 L (35.3-44.9) % Plt Count 218 139 L (140-400) K/mcL Neutrophils # 13.5 H 12.4 H (1.6-8.9) K/mcL BMP 05/03/17 05/04/17 17:57 09:50 Sodium 139 139 Potassium 4.7 H 4.5 Chloride 104 107 Carbon Dioxide 25 26 BUN 24 H 29 H Creatinine 0.90 1.50 H D Glucose 187 H 134 H Calcium 8.1 L 7.7 L Liver Function 05/03/17 Range/Units 17:57 Total Bilirubin 0.5 (0.2-1.2) mg/dL AST 20 (5-34) Units/L ALT 15 (0-55) Units/L Alkaline Phosphatase 58 (38-126) Units/L Albumin 2.5 L (3.5-5.0) g/dL - ABG Interpretation ABG results: PT/INR, D-dimer PT 13.3 Seconds (9.4-12.1) H 05/03/17 17:57 - Impressions Impressions Fluoroscopy 05/03/17 16:00 IMPRESSION: Intraprocedural fluoroscopic spot images as above. See separate procedure report for more information. D/ / Ella Dorado MD / Ella Dorado MD Interpreting Provider: Ella Dorado MD Chest X-Ray 05/04/17 04:06 IMPRESSION: Left lower lobe atelectasis versus pneumonia. D/ / Duane Richter MD / Duane Richter MD Interpreting Provider: Duane Richter MD - VTE Documentation of Mechanical Device: Graduated compression elastic hosiery Consult Discharge Plan - Plan Referrals: NONE,PCP [Primary Care Provider] -
[2017-05-04 16:07] LABS: Hematocrit 23.9 % (35.3-44.9); Hemoglobin 7.7 g/dL (11.5-15.4)
[2017-05-04] MEDS: *HR* HYDROcodone/Acet 5/325 mg TABLET PO PRN ×2 (17:58→22:39)
[2017-05-04] MEDS ORDERED: *HR* Rivaroxaban 10 MG TABLET PO SCH (18:00)
[2017-05-04] MEDS: Nystatin POWDER 30 GM BOTTLE TP SCH (21:45)
[2017-05-05 00:16] LABS: Bilirubin,Urine Small (Negative); Blood,Urine Large (Negative); Glucose,Urine (UA) Normal (Normal); Ketones,Urine Negative (Negative); Leukocyte Esterase,Urine Moderate (Negative); Nitrite,Urine Positive (Negative); Protein,Urine 30 mg/dL (Neg-Trace); Specific Gravity,Urine 1.024 (1.010-1.025); Urobilinogen,Urine Normal (Normal)
[2017-05-05 00:19] LABS: Bacteria,Urine Many per hpf (None-Few); Hyaline Casts,Urine None Seen per lpf (None-Few); Squamous Epithelial Cell,Urine Moderate per lpf (None-Few); WBC,Urine 50-100 per hpf (0-3)
[2017-05-05 00:26] LABS: Color,Urine Dark Yellow (Yellow)
[2017-05-05 00:27] LABS: Clarity,Urine Hazy (Clear)
[2017-05-05] MEDS: Insulin LISPRO 300 UNITS/3 ML VIAL SQ SCH ×4 (01:38→17:27)
[2017-05-05 04:34] LABS: Calcium 7.8 mg/dL (8.6-10.8); Potassium 4.1 mEq/L (3.5-4.5)
[2017-05-05 04:41] LABS: Basophils % 0.3 %; Eosinophils # 0.2 K/mcL (0.0-0.6); Eosinophils % 1.4 %; Hematocrit 25.7 % (35.3-44.9); Hemoglobin 8.3 g/dL (11.5-15.4); Immature Granulocytes % 2.3 % (0-4); Lymphocytes # 1.2 K/mcL (0.6-4.6); Lymphocytes % 10.4 %; Mean Corpuscular HGB Conc 32.3 g/dL (31.6-35.5); Mean Corpuscular Hemoglobin 26.5 pg (28.0-33.3); Mean Corpuscular Volume 82.1 fL (83.0-100.0); Mean Platelet Volume 10.8 fL (9.4-12.4); Monocytes % 8.6 %; Neutrophils # 8.9 K/mcL (1.6-8.9); Nucleated Red Blood Cells 0.6 /100 WBC (0); Platelet Count 119 K/mcL (140-400); Red Blood Count 3.13 M/mcL (3.82-4.97); Red Cell Distribution Width 16.6 % (11.5-14.5)
[2017-05-05] MEDS: *HR* HYDROcodone/Acet 5/325 mg TABLET PO PRN ×2 (05:59→19:18)
[2017-05-05 06:12] LABS: Large Platelets Present (Not Present); Platelet Estimate Slight Decrease (Normal)
--- NOTE | 2017-05-05 07:10 | Orthopedics Progress Note ---
Date of Encounter: 05/05/17 Time of Encounter: 07:06 - Assessment and Plan (1) Hip fracture, left Current Visit: Yes Status: Acute Qualifiers: Encounter type: initial encounter Fracture type: closed Qualified Code(s) : S72.002A - Fracture of unspecified part of neck of left femur, initial encounter for closed fracture Subjective Interval history: S: Patient with drowsiness and postoperative confusion the arousable and answers basic questions with brief answers. No new complaints. Expected postoperative pain to the left thigh which is controlled. He has not been able to participate yet with therapy. O: Afebrile, blood pressure has improved and stabilized Left thigh incisions are clean, dry, and intact. Moderate pain with passive motion of the thigh and hip. She grossly flexes and extends the ankle and toes. The foot is grossly sensate and well-perfused. A: Post internal fixation of the left proximal femur with acute blood loss anemia from injury and surgery, postoperative confusion. P: Physical and occupational therapy when able Nonweightbearing to the left lower extremity given the comminution of her fracture Up to a chair twice a day Xarelto for DVT prophylaxis and sequential compression devices Daily dressing [place] was kept in by the hospitalist in order to closely monitor the patient. DC donohue today if okay with the hospitalist. Anticipate alf facility for rehabilitation upon discharge Objective Vital signs: Vital Signs Temp Pulse Resp BP Pulse Ox 05/05/17 06:41 97.8 F 70 18 117/62 99 05/05/17 04:29 98.0 F 77 18 114/70 99 05/05/17 01:33 98.1 F 69 20 136/71 98 05/04/17 22:30 98.8 F 63 20 134/108 99 05/04/17 22:15 97.8 F 66 18 121/44 100 05/04/17 19:10 99.4 F 74 19 128/71 99 05/04/17 18:16 16 133/63 99 05/04/17 16:07 98.0 F 76 18 116/46 98 05/04/17 14:31 130/70 05/04/17 10:41 98.1 F 77 18 115/85 98 05/04/17 08:04 120/61 05/04/17 07:51 99.1 F 73 18 84/45 95 Intake and Output 05/04/17 05/04/17 05/05/17 15:59 23:59 07:59 Intake Total 0 / 0 0 / 0 620 / 620 Output Total 335 / 335 275 / 275 200 / 200 Balance -335 / -335 -275 / -275 420 / 420 Intake: IV Fluids 200 / 200 Cipro Premix 400 MG/200 ML 400 200 / 200 mg In 200 ml @ 200 mls/hr IVPB Q12HR [facility] Rx#:[id number] Oral 0 / 0 120 / 120 Blood Product 0 / 0 300 / 300 Rbcs Leuko Poor As-1 Unit 0 / 0 300 / 300 [id number] Output: Urine 200 / 200 Catheter 335 / 335 275 / 275 Other: Meal Breakfast Percent of Meal Consumed 0% Blood Glucose* 145 142 - Labs CBC & BMP: 05/05/17 04:10 05/05/17 04:10 Labs: Abnormal lab results WBC 11.6 K/mcL (4.3-11.1) H 05/05/17 04:10 RBC 3.13 M/mcL (3.82-4.97) L 05/05/17 04:10 Hgb 8.3 g/dL (11.5-15.4) L 05/05/17 04:10 Hct 25.7 % (35.3-44.9) L 05/05/17 04:10 MCV 82.1 fL (83.0-100.0) L 05/05/17 04:10 MCH 26.5 pg (28.0-33.3) L 05/05/17 04:10 RDW 16.6 % (11.5-14.5) H 05/05/17 04:10 Plt Count 119 K/mcL (140-400) L 05/05/17 04:10 Band Neutrophils % 10.0 % (0-4) H 05/04/17 09:50 Nucleated RBCs/100 WBC 0.6 /100 WBC (0) H 05/05/17 04:10 Platelet Estimate Slight Decrease (Normal) L 05/05/17 04:10 Large Platelets Present (Not Present) A 05/05/17 04:10 PT 13.3 Seconds (9.4-12.1) H 05/03/17 17:57 BUN 30 mg/dL (7-20) H 05/05/17 04:10 Est GFR ( Amer) 58 (> 60) L 05/05/17 04:10 Est GFR (Non-Af Amer) 48 (> 60) L 05/05/17 04:10 BUN/Creatinine Ratio 28 (6-26) H 05/05/17 04:10 Glucose 148 mg/dL (70-99) H 05/05/17 04:10 POC Glucose 158 (58-89) H 05/04/17 23:57 Calcium 7.8 mg/dL (8.6-10.8) L 05/05/17 04:10 % Saturation 74 % (15-50) H 05/04/17 09:50 Transferrin 159 mg/dL (180-382) L 05/04/17 09:50 Ferritin 770 ng/ml (5-204) H 05/04/17 09:50 Serum Total Protein 5.0 g/dL (6.0-8.3) L 05/03/17 17:57 Albumin 2.5 g/dL (3.5-5.0) L 05/03/17 17:57 Albumin/Globulin Ratio 1.0 (1.1-2.2) L 05/03/17 17:57 Vitamin B12 > 2000 pg/mL (213-816) H 05/04/17 09:50 Urine Clarity Hazy (Clear) A 05/05/17 00:00 Urine Protein 30 mg/dL (Neg-Trace) H 05/05/17 00:00 Urine Blood Large (Negative) H 05/05/17 00:00 Urine Nitrite Positive (Negative) A 05/05/17 00:00 Urine Bilirubin Small (Negative) H 05/05/17 00:00 Ur Leukocyte Esterase Moderate (Negative) H 05/05/17 00:00 Urine Microscopic RBC 5-15 per hpf (0-3) H 05/05/17 00:00 Urine Microscopic WBC 50-100 per hpf (0-3) H 05/05/17 00:00 Ur Squamous Epith Cells Moderate per lpf (None-Few) H 05/05/17 00:00 Urine Bacteria Many per hpf (None-Few) H 05/05/17 00:00 Ur Culture Indicated? YES (NO) A 05/05/17 00:00 - VTE Documentation of Mechanical Device: Intermittent pneumatic compression device Consult Discharge Plan - Plan Referrals: NONE,PCP [Primary Care Provider] -
[2017-05-05] MEDS: predniSONE 10 MG TABLET PO SCH (08:48)
[2017-05-05] MEDS: Magnesium Oxide 400 MG TABLET PO SCH (08:49)
[2017-05-05] MEDS: Nystatin POWDER 30 GM BOTTLE TP SCH ×2 (08:54→22:10)
[2017-05-05] MEDS ORDERED: Methocarbamol 750 MG TABLET PO PRN (09:16)
--- NOTE | 2017-05-05 16:32 | Internal Med Progress Note ---
Date of Encounter: 05/05/17 Time of Encounter: 09:00 - Assessment and plan (1) Hip fracture, left Current Visit: Yes Status: Acute Assessment and plan: Continue supportive care. Pain control. Physical therapy when patient is able to tolerate. Patient will most likely need placement to skilled rehabilitation. mobile home lot utility worker aware Qualifiers: Encounter type: initial encounter Fracture type: closed Qualified Code(s) : S72.002A - Fracture of unspecified part of neck of left femur, initial encounter for closed fracture (2) Altered mental status Current Visit: Yes Status: Acute Assessment and plan: Excessive somnolence. Could be medication related. We will decrease the use of intravenous narcotic medications. We will check ABG. Monitor vital signs closely. Treat possible underlying metabolic causes. Qualifiers: Altered mental status type: somnolence Qualified Code(s): R40.0 - Somnolence (3) Leukocytosis Current Visit: Yes Status: Acute Assessment and plan: Continue to improve. Urinalysis suggests possible UTI. Most likely due to [place] catheterization. Will remove [place] catheter. Complete short course of antibiotics. Qualifiers: Leukocytosis type: unspecified Qualified Code(s): D72.829 - Elevated white blood cell count, unspecified (4) Atrial fibrillation Current Visit: Yes Status: Chronic Assessment and plan: Rate control. Resume sotalol. Also resumed Xarelto Qualifiers: Atrial fibrillation type: chronic Qualified Code(s): I48.2 - Chronic atrial fibrillation (5) Hypertension Current Visit: Yes Status: Chronic Assessment and plan: Well-controlled Qualifiers: Hypertension type: essential hypertension Qualified Code(s): I10 - Essential (primary) hypertension (6) TIA (transient ischemic attack) Current Visit: No Status: Chronic Qualifiers: Transient cerebral ischemia type: unspecified Qualified Code(s): G45.9 - Transient cerebral ischemic attack, unspecified (7) DVT prophylaxis Current Visit: Yes Status: Acute Assessment and plan: On Xarelto (8) Diabetes mellitus Current Visit: Yes Status: Chronic Assessment and plan: Blood sugars are well controlled Qualifiers: Diabetes mellitus type: type 2 Diabetes mellitus complication status: with unspecified complications Diabetes mellitus sales and merchandising associate insulin use: without jail use Qualified Code(s): E11.8 - Type 2 diabetes mellitus with unspecified complications (9) Anemia Current Visit: Yes Status: Chronic Assessment and plan: Hemoglobin 8.3 today. We will continue to monitor. Qualifiers: Anemia type: unspecified type Qualified Code(s): D64.9 - Anemia, unspecified (10) Hypotension Current Visit: Yes Status: Resolved Qualifiers: Hypotension type: other hypotension type Qualified Code(s): I95.89 - Other hypotension - Subjective Interval history: Patient remains very somnolent but of awakes and answers some questions. Pain reported and left lower extremity at site of surgery. Worsens with movement. Has not been able to participate in physical therapy due to excessive somnolence. No new episodes of fever or chills. No fever or chills reported. Blood pressure has been stable. - Constitutional Vitals: Temp Pulse Resp BP Pulse Ox 97.6 F 80 18 128/76 99 05/05/17 15:53 05/05/17 15:53 05/05/17 15:53 05/05/17 15:53 05/05/17 15:53 General appearance: Present: A&O X 1, no acute distress, obese Exam: Remains somnolent but awakes easily. Answers some questions appropriately. Knows that she is at [facility] - Neck Neck exam general surgery: Present: supple, trachea midline. Absent: lymphadenopathy - Respiratory Respiratory exam: Present: CTAB. Absent: accessory muscle use, rales, rhonchi, wheezes - Cardiovascular Cardiovascular exam: Present: RRR, +S1, +S2. Absent: diastolic murmur, gallop, rubs, systolic murmur - Extremities Exam Extremities exam: Present: tenderness (left hip and leg), warm, radial pulses palpable and symmetrical. Absent: calf tenderness, cyanotic, pedal edema - Skin Skin exam: Present: dry, intact Additional comments: Multiple ecchymoses noted all over her skin Internal Medicine: Result - Labs CBC & Chem 7: 05/05/17 04:10 05/05/17 04:10 Labs: Short CBC 05/05/17 Range/Units 04:10 WBC 11.6 H (4.3-11.1) K/mcL Hgb 8.3 L (11.5-15.4) g/dL Hct 25.7 L (35.3-44.9) % Plt Count 119 L (140-400) K/mcL Neutrophils # 8.9 (1.6-8.9) K/mcL BMP 05/05/17 04:10 Sodium 138 Potassium 4.1 Chloride 106 Carbon Dioxide 24 BUN 30 H Creatinine 1.09 Glucose 148 H Calcium 7.8 L Urine 05/05/17 Range/Units 00:00 Urine Color Dark Yellow (Yellow) Urine Clarity Hazy A (Clear) Urine pH 5.0 (5.0-8.0) pH Units Ur Specific [place] 1.024 (1.010-1.025) Urine Protein 30 H (Neg-Trace) mg/dL Urine Glucose (UA) Normal (Normal) mg/dL - ABG Interpretation ABG results: PT/INR, D-dimer PT 13.3 Seconds (9.4-12.1) H 05/03/17 17:57 - Impressions Impressions Chest CT 05/04/17 16:32 IMPRESSION: Limited evaluation the subclavian region due to streak artifact from the patient's shoulder arthroplasty. No obvious acute process. No pneumothorax. There are small bilateral pleural effusions with adjacent atelectasis in the lung bases, left greater than right. D/ / Rasheeda Edwards MD / Rasheeda Edwards MD Interpreting Provider: Rasheeda Edwards MD - VTE Documentation of Mechanical Device: Intermittent pneumatic compression device Consult Discharge Plan - Plan Referrals: NONE,PCP [Primary Care Provider] -
[2017-05-05] MEDS: *HR* Rivaroxaban 15 MG TABLET PO SCH (17:25)
[2017-05-05 17:36] LABS: Hemoglobin 8.4 g/dL (11.5-15.4)
--- NOTE | 2017-05-05 22:07 | Orthopedics Progress Note ---
Date of Encounter: 05/08/17 Time of Encounter: 08:10 - Assessment and Plan (1) Hip fracture, left Current Visit: Yes Status: Acute Qualifiers: Encounter type: initial encounter Fracture type: closed Qualified Code(s) : S72.002A - Fracture of unspecified part of neck of left femur, initial encounter for closed fracture Subjective Interval history: Patient signed out to Dr. Santana for the weekend. Objective Vital signs: Vital Signs Temp Pulse Resp BP Pulse Ox 05/05/17 19:30 99.6 F 82 26 126/73 99 05/05/17 15:53 97.6 F 80 18 128/76 99 05/05/17 11:39 98.1 F 79 18 130/76 99 05/05/17 06:41 97.8 F 70 18 117/62 99 05/05/17 04:29 98.0 F 77 18 114/70 99 05/05/17 01:33 98.1 F 69 20 136/71 98 05/04/17 22:30 98.8 F 63 20 134/108 99 05/04/17 22:15 97.8 F 66 18 121/44 100 Intake and Output 05/05/17 05/05/17 05/05/17 07:59 15:59 23:59 Intake Total 620 / 620 0 / 0 Output Total 200 / 200 Balance 420 / 420 0 / 0 Intake: IV Fluids 200 / 200 Cipro Premix 400 MG/200 ML 400 200 / 200 mg In 200 ml @ 200 mls/hr IVPB Q12HR [facility] Rx#:[id number] Oral 120 / 120 0 / 0 Blood Product 300 / 300 Rbcs Leuko Poor As-1 Unit 300 / 300 [id number] Output: Urine 200 / 200 Other: Meal Breakfast Percent of Meal Consumed 5% Blood Glucose* 155 206 - Labs CBC & BMP: 05/06/17 08:41 05/05/17 04:10 Labs: Abnormal lab results WBC 11.6 K/mcL (4.3-11.1) H 05/05/17 04:10 RBC 3.13 M/mcL (3.82-4.97) L 05/05/17 04:10 Hgb 8.4 g/dL (11.5-15.4) L 05/05/17 17:15 Hct 26.0 % (35.3-44.9) L 05/05/17 17:15 MCV 82.1 fL (83.0-100.0) L 05/05/17 04:10 MCH 26.5 pg (28.0-33.3) L 05/05/17 04:10 RDW 16.6 % (11.5-14.5) H 05/05/17 04:10 Plt Count 119 K/mcL (140-400) L 05/05/17 04:10 Band Neutrophils % 10.0 % (0-4) H 05/04/17 09:50 Nucleated RBCs/100 WBC 0.6 /100 WBC (0) H 05/05/17 04:10 Platelet Estimate Slight Decrease (Normal) L 05/05/17 04:10 Large Platelets Present (Not Present) A 05/05/17 04:10 PT 13.3 Seconds (9.4-12.1) H 05/03/17 17:57 BUN 30 mg/dL (7-20) H 05/05/17 04:10 Est GFR ( Amer) 58 (> 60) L 05/05/17 04:10 Est GFR (Non-Af Amer) 48 (> 60) L 05/05/17 04:10 BUN/Creatinine Ratio 28 (6-26) H 05/05/17 04:10 Glucose 148 mg/dL (70-99) H 05/05/17 04:10 POC Glucose 206 (58-89) H 05/05/17 17:24 Calcium 7.8 mg/dL (8.6-10.8) L 05/05/17 04:10 % Saturation 74 % (15-50) H 05/04/17 09:50 Transferrin 159 mg/dL (180-382) L 05/04/17 09:50 Ferritin 770 ng/ml (5-204) H 05/04/17 09:50 Serum Total Protein 5.0 g/dL (6.0-8.3) L 05/03/17 17:57 Albumin 2.5 g/dL (3.5-5.0) L 05/03/17 17:57 Albumin/Globulin Ratio 1.0 (1.1-2.2) L 05/03/17 17:57 Vitamin B12 > 2000 pg/mL (213-816) H 05/04/17 09:50 Urine Clarity Hazy (Clear) A 05/05/17 00:00 Urine Protein 30 mg/dL (Neg-Trace) H 05/05/17 00:00 Urine Blood Large (Negative) H 05/05/17 00:00 Urine Nitrite Positive (Negative) A 05/05/17 00:00 Urine Bilirubin Small (Negative) H 05/05/17 00:00 Ur Leukocyte Esterase Moderate (Negative) H 05/05/17 00:00 Urine Microscopic RBC 5-15 per hpf (0-3) H 05/05/17 00:00 Urine Microscopic WBC 50-100 per hpf (0-3) H 05/05/17 00:00 Ur Squamous Epith Cells Moderate per lpf (None-Few) H 05/05/17 00:00 Urine Bacteria Many per hpf (None-Few) H 05/05/17 00:00 Ur Culture Indicated? YES (NO) A 05/05/17 00:00 - VTE Documentation of Mechanical Device: Intermittent pneumatic compression device Consult Discharge Plan - Plan Additional Instructions: GROUP HOME DISCHARGE INSTRUCTIONS Dr. Romano PROCEDURE PERFORMED Reduction and fixation of left hip. Incision care -Daily dressing changes to the left hip with dry gauze and either paper tape or medipore tape. -Avoid soaking wound in water (no hot tubs, bathtubs, swimming pools). -May shower after 2 weeks from surgery date. Carefully wash incision with soap and water. Gently pat it dry. Don't rub the incision, or apply creams or lotions. Sit on a shower stool when showering to keep from falling. Weight bearing status -Weightbearing as tolerated to the bilateral lower extremities. Medications -Pain medication per the discharging medical doctor -Take your Xarelto as previously prescribed. Other -Knee high [place] hose 23 hours per day -Consult physical and occupational therapy for mobilization. -Up to chair with assistance at least twice per day. -Follow up with your primary care physician to discuss testing for bone mineral density. Follow-up with Dr. Romano at the office 2 weeks from the surgery date for a post operative evaluation. Call the office at [phone] to schedule appointment. Referrals: NONE,PCP [Primary Care Provider] -
[2017-05-06] MEDS: Insulin LISPRO 300 UNITS/3 ML VIAL SQ SCH ×4 (01:53→20:26)
[2017-05-06] MEDS: *HR* HYDROcodone/Acet 5/325 mg TABLET PO PRN ×2 (01:56→12:30)
[2017-05-06 09:00] LABS: Hematocrit 26.6 % (35.3-44.9); Hemoglobin 8.5 g/dL (11.5-15.4)
[2017-05-06] MEDS: Nystatin POWDER 30 GM BOTTLE TP SCH (09:05)
[2017-05-06] MEDS: Magnesium Oxide 400 MG TABLET PO SCH (09:09)
[2017-05-06] MEDS: predniSONE 10 MG TABLET PO SCH (09:09)
[2017-05-06 12:07] LABS: ABG Base Excess 6.3 mEq/L (-2.0 to 3.0); ABG HCO3 31 mEq/L (21-27); ABG Oxygen Saturation 99 % (95-98); ABG PCO2 46 mmHg (35-45); ABG PH 7.44 pH Units (7.32-7.45); ABG PO2 127 mmHg (85-104); ABG TCO2 33 mEq/L (20-26)
[2017-05-06 12:08] LABS: Blood Gas Modality NC
--- NOTE | 2017-05-06 13:22 | Internal Med Progress Note ---
Date of Encounter: 05/06/17 Time of Encounter: 12:00 - Assessment and plan (1) Hip fracture, left Current Visit: Yes Status: Acute Assessment and plan: Status post intramedullary nailing. Physical therapy has been ordered but patient not able to participate due to excessive somnolence. Continue supportive care. Minimize use of narcotic pain medications Qualifiers: Encounter type: initial encounter Fracture type: closed Qualified Code(s) : S72.002A - Fracture of unspecified part of neck of left femur, initial encounter for closed fracture (2) Altered mental status Current Visit: Yes Status: Acute Assessment and plan: Will check ABG to look for CO2 retention and narcosis. No symptoms of stroke at this time. Patient's condition appears to be intermittently getting better. We will continue to monitor for now. If remains excessively somnolent, consider MRI of the brain in the next couple of days Qualifiers: Altered mental status type: somnolence Qualified Code(s): R40.0 - Somnolence (3) Leukocytosis Current Visit: Yes Status: Acute Assessment and plan: Treating for possible acute urinary tract infection. Leukocytosis has improved Qualifiers: Leukocytosis type: unspecified Qualified Code(s): D72.829 - Elevated white blood cell count, unspecified (4) Atrial fibrillation Current Visit: Yes Status: Chronic Assessment and plan: Rate controlled. On anticoagulation with Xarelto Qualifiers: Atrial fibrillation type: chronic Qualified Code(s): I48.2 - Chronic atrial fibrillation (5) Hypertension Current Visit: Yes Status: Chronic Assessment and plan: Blood pressure is well controlled Qualifiers: Hypertension type: essential hypertension Qualified Code(s): I10 - Essential (primary) hypertension (6) TIA (transient ischemic attack) Current Visit: No Status: Chronic Assessment and plan: No signs of acute TIA. Continue statin Qualifiers: Transient cerebral ischemia type: unspecified Qualified Code(s): G45.9 - Transient cerebral ischemic attack, unspecified (7) DVT prophylaxis Current Visit: Yes Status: Acute Assessment and plan: Onset alto (8) Diabetes mellitus Current Visit: Yes Status: Chronic Assessment and plan: Fairly controlled. Will continue to monitor blood sugars closely. Qualifiers: Diabetes mellitus type: type 2 Diabetes mellitus complication status: with unspecified complications Diabetes mellitus senior care insulin use: without long term care social worker use Qualified Code(s): E11.8 - Type 2 diabetes mellitus with unspecified complications (9) Anemia Current Visit: Yes Status: Chronic Assessment and plan: Hemoglobin levels have stabilized. Hemoglobin 8.5 today Qualifiers: Anemia type: unspecified type Qualified Code(s): D64.9 - Anemia, unspecified - Subjective Interval history: Patient is again very somnolent this morning but awakes and answers questions appropriately. According to the patient's son was present at bedside, she was more awake and alert last night and was able to dinner well. She has not received any pain medications since early this morning. No slurred speech. No other focal weakness reported. - Constitutional Vitals: Temp Pulse Resp BP Pulse Ox 98.7 F 66 18 115/44 98 05/06/17 11:38 05/06/17 11:38 05/06/17 11:38 05/06/17 11:38 05/06/17 11:38 General appearance: Present: A&O X 1, no acute distress, obese - Eye Eye exam: Present: EOMI, conjuntiva pink, sclera anicteric - Respiratory Respiratory exam: Present: CTAB. Absent: accessory muscle use, rales, rhonchi, wheezes - Cardiovascular Cardiovascular exam: Present: RRR, +S1, +S2. Absent: diastolic murmur, gallop, rubs, systolic murmur - GI/Abdominal GI/Abdominal exam: Present: normal bowel sounds, soft, no peritoneal signs. Absent: distended, tenderness - Extremities Exam Extremities exam: Present: warm, radial pulses palpable and symmetrical. Absent : calf tenderness, cyanotic, pedal edema - Neurological Exam Neurological exam: Present: no focal deficits. Absent: facial droop, speech deficit - Skin Skin exam: Present: dry, intact Internal Medicine: Result - Labs CBC & Chem 7: 05/06/17 08:41 05/05/17 04:10 Labs: Short CBC 05/05/17 05/06/17 Range/Units 17:15 08:41 Hgb 8.4 L 8.5 L (11.5-15.4) g/dL Hct 26.0 L 26.6 L (35.3-44.9) % - ABG Interpretation ABG results: ABG ABG pH 7.44 pH Units (7.32-7.45) 05/06/17 12:01 ABG pCO2 46 mmHg (35-45) H 05/06/17 12:01 ABG pO2 127 mmHg (85-104) H 05/06/17 12:01 ABG O2 Saturation 99 % (95-98) H 05/06/17 12:01 PT/INR, D-dimer PT 13.3 Seconds (9.4-12.1) H 05/03/17 17:57 - VTE Documentation of Mechanical Device: Intermittent pneumatic compression device Consult Discharge Plan - Plan Additional Instructions: NURSING HOME DISCHARGE INSTRUCTIONS Dr. Romano PROCEDURE PERFORMED Reduction and fixation of left hip. Incision care -Daily dressing changes to the left hip with dry gauze and either paper tape or medipore tape. -Avoid soaking wound in water (no hot tubs, bathtubs, swimming pools). -May shower after 2 weeks from surgery date. Carefully wash incision with soap and water. Gently pat it dry. Don't rub the incision, or apply creams or lotions. Sit on a shower stool when showering to keep from falling. Weight bearing status -Weightbearing as tolerated to the bilateral lower extremities. Medications -Pain medication per the discharging medical doctor -Take your Xarelto as previously prescribed. Other -Knee high [place] [employer] hose 23 hours per day -Consult physical and occupational therapy for mobilization. -Up to chair with assistance at least twice per day. -Follow up with your primary care physician to discuss testing for bone mineral density. Follow-up with Dr. Romano at the office 2 weeks from the surgery date for a post operative evaluation. Call the office at [phone] to schedule appointment. Referrals: NONE,PCP [Primary Care Provider] -
[2017-05-06] MEDS: *HR* Rivaroxaban 15 MG TABLET PO SCH (20:26)
[2017-05-07] MEDS: Nystatin POWDER 30 GM BOTTLE TP SCH ×3 (01:29→22:15)
[2017-05-07] MEDS: predniSONE 10 MG TABLET PO SCH (09:05)
[2017-05-07] MEDS: Magnesium Oxide 400 MG TABLET PO SCH (09:05)
[2017-05-07] MEDS: Insulin LISPRO 300 UNITS/3 ML VIAL SQ SCH ×4 (09:06→22:15)
--- NOTE | 2017-05-07 14:59 | Internal Med Progress Note ---
Date of Encounter: 05/07/17 Time of Encounter: 10:35 - Assessment and plan (1) Hip fracture, left Current Visit: Yes Status: Acute Assessment and plan: Status post-intramedullary nailing. Pending evaluation by physical therapy. Patient has been very somnolent over the past couple of days and was just not able to participate in physical therapy. She is much more awake and alert today. 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 Qualifiers: Encounter type: initial encounter Fracture type: closed Qualified Code(s) : S72.002A - Fracture of unspecified part of neck of left femur, initial encounter for closed fracture (2) Altered mental status Current Visit: Yes Status: Acute Assessment and plan: This is improving. Patient is more awake and alert today. We will continue to monitor Qualifiers: Altered mental status type: somnolence Qualified Code(s): R40.0 - Somnolence (3) Leukocytosis Current Visit: Yes Status: Acute Assessment and plan: Most likely from UTI with Escherichia coli. Complete antibiotic course. Qualifiers: Leukocytosis type: unspecified Qualified Code(s): D72.829 - Elevated white blood cell count, unspecified (4) Atrial fibrillation Current Visit: Yes Status: Chronic Assessment and plan: Rate controlled. Continue sotalol and Xarelto Qualifiers: Atrial fibrillation type: chronic Qualified Code(s): I48.2 - Chronic atrial fibrillation (5) Hypertension Current Visit: Yes Status: Chronic Assessment and plan: Blood pressure is well controlled Qualifiers: Hypertension type: essential hypertension Qualified Code(s): I10 - Essential (primary) hypertension (6) TIA (transient ischemic attack) Current Visit: No Status: Chronic Assessment and plan: Continue statin and Xarelto Qualifiers: Transient cerebral ischemia type: unspecified Qualified Code(s): G45.9 - Transient cerebral ischemic attack, unspecified (7) DVT prophylaxis Current Visit: Yes Status: Acute (8) Diabetes mellitus Current Visit: Yes Status: Chronic Assessment and plan: Blood sugars are slightly elevated today. We will adjust insulin regimen. Continue ADA diet Qualifiers: Diabetes mellitus type: type 2 Diabetes mellitus complication status: with unspecified complications Diabetes mellitus manager long term care insulin use: without manager long term care use Qualified Code(s): E11.8 - Type 2 diabetes mellitus with unspecified complications (9) Anemia Current Visit: Yes Status: Chronic Assessment and plan: Remains stable. Qualifiers: Anemia type: unspecified type Qualified Code(s): D64.9 - Anemia, unspecified - Subjective Interval history: Patient is sitting up in bed. Appears more alert and awake. Answering questions appropriately. Complains of some soreness in her left leg that is well controlled. No fever or chills reported overnight. on room air at this time. - Constitutional Vitals: Temp Pulse Resp BP Pulse Ox 98.2 F 59 20 117/74 92 05/07/17 11:00 05/07/17 11:00 05/07/17 11:00 05/07/17 11:00 05/07/17 11:00 General appearance: Present: cooperative, A&O X 2, no acute distress, obese, answers questions appropriately - Neck Neck exam general surgery: Present: supple, trachea midline. Absent: lymphadenopathy - Respiratory Respiratory exam: Present: CTAB. Absent: accessory muscle use, rales, rhonchi, wheezes - Cardiovascular Cardiovascular exam: Present: RRR, +S1, +S2. Absent: diastolic murmur, gallop, rubs, systolic murmur - GI/Abdominal GI/Abdominal exam: Present: normal bowel sounds, soft, no peritoneal signs. Absent: distended, tenderness - Extremities Exam Extremities exam: Present: tenderness (Left thigh and leg), warm, radial pulses palpable and symmetrical. Absent: calf tenderness, cyanotic, pedal edema - Neurological Exam Neurological exam: Present: alert, no focal deficits. Absent: facial droop, speech deficit Internal Medicine: Result - Labs CBC & Chem 7: 05/06/17 08:41 05/05/17 04:10 - ABG Interpretation ABG results: ABG ABG pH 7.44 pH Units (7.32-7.45) 05/06/17 12:01 ABG pCO2 46 mmHg (35-45) H 05/06/17 12:01 ABG pO2 127 mmHg (85-104) H 05/06/17 12:01 ABG O2 Saturation 99 % (95-98) H 05/06/17 12:01 PT/INR, D-dimer PT 13.3 Seconds (9.4-12.1) H 05/03/17 17:57 - VTE Documentation of Mechanical Device: Intermittent pneumatic compression device Consult Discharge Plan - Plan Additional Instructions: LONG TERM DISCHARGE INSTRUCTIONS Dr. Romano PROCEDURE PERFORMED Reduction and fixation of left hip. Incision care -Daily dressing changes to the left hip with dry gauze and either paper tape or medipore tape. -Avoid soaking wound in water (no hot tubs, bathtubs, swimming pools). -May shower after 2 weeks from surgery date. Carefully wash incision with soap and water. Gently pat it dry. Don't rub the incision, or apply creams or lotions. Sit on a shower stool when showering to keep from falling. Weight bearing status -Weightbearing as tolerated to the bilateral lower extremities. Medications -Pain medication per the discharging medical doctor -Take your Xarelto as previously prescribed. Other -Knee high [place] [employer] hose 23 hours per day -Consult physical and occupational therapy for mobilization. -Up to chair with assistance at least twice per day. -Follow up with your primary care physician to discuss testing for bone mineral density. Follow-up with Dr. Romano at the office 2 weeks from the surgery date for a post operative evaluation. Call the office at [phone] to schedule appointment. Referrals: NONE,PCP [Primary Care Provider] -
[2017-05-07] MEDS: *HR* Rivaroxaban 15 MG TABLET PO SCH (17:11)
--- NOTE | 2017-05-07 20:08 | Orthopedics Progress Note ---
Date of Encounter: 05/06/17 Time of Encounter: 16:10 Subjective Principal diagnosis: s/p IM nail femur Interval history: The patient is without complaints. Afebrile vital signs are stable. Incision is clean dry and intact. Neurovascularly intact with regard to bilateral lower extremities. Assessment :stable. Plan mobilize ,continue analgesics, discharge planning. Respiratory management per hospitalist service. Objective Vital signs: Vital Signs Temp Pulse Resp BP Pulse Ox 05/07/17 16:00 98.5 F 64 22 125/83 95 05/07/17 11:00 98.2 F 59 20 117/74 92 05/07/17 06:45 98.5 F 68 16 134/78 96 05/07/17 03:38 97 05/06/17 23:26 97 05/06/17 23:05 98.3 F 65 18 127/76 97 Intake and Output 05/07/17 05/07/17 05/07/17 07:59 15:59 23:59 Intake Total 200 / 200 350 / 350 200 / 200 Balance 200 / 200 350 / 350 200 / 200 Intake: IV Fluids 200 / 200 200 / 200 Cipro Premix 400 MG/200 ML 400 200 / 200 200 / 200 mg In 200 ml @ 200 mls/hr IVPB Q12HR ZULEYKA Rx#:[id number] Oral 350 / 350 Other: Meal Lunch Percent of Meal Consumed 60% Stool Size Large Stool Consistency loose Stool Color Brown # Urine Diapers 1 1 1 Blood Glucose* 160 171 323 - Labs CBC & BMP: 05/06/17 08:41 05/05/17 04:10 Labs: Abnormal lab results WBC 11.6 K/mcL (4.3-11.1) H 05/05/17 04:10 RBC 3.13 M/mcL (3.82-4.97) L 05/05/17 04:10 Hgb 8.5 g/dL (11.5-15.4) L 05/06/17 08:41 Hct 26.6 % (35.3-44.9) L 05/06/17 08:41 MCV 82.1 fL (83.0-100.0) L 05/05/17 04:10 MCH 26.5 pg (28.0-33.3) L 05/05/17 04:10 RDW 16.6 % (11.5-14.5) H 05/05/17 04:10 Plt Count 119 K/mcL (140-400) L 05/05/17 04:10 Band Neutrophils % 10.0 % (0-4) H 05/04/17 09:50 Nucleated RBCs/100 WBC 0.6 /100 WBC (0) H 05/05/17 04:10 Platelet Estimate Slight Decrease (Normal) L 05/05/17 04:10 Large Platelets Present (Not Present) A 05/05/17 04:10 PT 13.3 Seconds (9.4-12.1) H 05/03/17 17:57 ABG pCO2 46 mmHg (35-45) H 05/06/17 12:01 ABG pO2 127 mmHg (85-104) H 05/06/17 12:01 ABG HCO3 31 mEq/L (21-27) H 05/06/17 12:01 ABG Total CO2 33 mEq/L (20-26) H 05/06/17 12:01 ABG O2 Saturation 99 % (95-98) H 05/06/17 12:01 ABG Base Excess 6.3 mEq/L (-2.0 to 3.0) H 05/06/17 12:01 BUN 30 mg/dL (7-20) H 05/05/17 04:10 Est GFR ( Amer) 58 (> 60) L 05/05/17 04:10 Est GFR (Non-Af Amer) 48 (> 60) L 05/05/17 04:10 BUN/Creatinine Ratio 28 (6-26) H 05/05/17 04:10 Glucose 148 mg/dL (70-99) H 05/05/17 04:10 POC Glucose 323 (58-89) H 05/07/17 16:37 Calcium 7.8 mg/dL (8.6-10.8) L 05/05/17 04:10 % Saturation 74 % (15-50) H 05/04/17 09:50 Transferrin 159 mg/dL (180-382) L 05/04/17 09:50 Ferritin 770 ng/ml (5-204) H 05/04/17 09:50 Serum Total Protein 5.0 g/dL (6.0-8.3) L 05/03/17 17:57 Albumin 2.5 g/dL (3.5-5.0) L 05/03/17 17:57 Albumin/Globulin Ratio 1.0 (1.1-2.2) L 05/03/17 17:57 Vitamin B12 > 2000 pg/mL (213-816) H 05/04/17 09:50 Urine Clarity Hazy (Clear) A 05/05/17 00:00 Urine Protein 30 mg/dL (Neg-Trace) H 05/05/17 00:00 Urine Blood Large (Negative) H 05/05/17 00:00 Urine Nitrite Positive (Negative) A 05/05/17 00:00 Urine Bilirubin Small (Negative) H 05/05/17 00:00 Ur Leukocyte Esterase Moderate (Negative) H 05/05/17 00:00 Urine Microscopic RBC 5-15 per hpf (0-3) H 05/05/17 00:00 Urine Microscopic WBC 50-100 per hpf (0-3) H 05/05/17 00:00 Ur Squamous Epith Cells Moderate per lpf (None-Few) H 05/05/17 00:00 Urine Bacteria Many per hpf (None-Few) H 05/05/17 00:00 Ur Culture Indicated? YES (NO) A 05/05/17 00:00 - VTE Documentation of Mechanical Device: Intermittent pneumatic compression device Consult Discharge Plan - Plan Additional Instructions: ASSISTED DISCHARGE INSTRUCTIONS Dr. Romano PROCEDURE PERFORMED Reduction and fixation of left hip. Incision care -Daily dressing changes to the left hip with dry gauze and either paper tape or medipore tape. -Avoid soaking wound in water (no hot tubs, bathtubs, swimming pools). -May shower after 2 weeks from surgery date. Carefully wash incision with soap and water. Gently pat it dry. Don't rub the incision, or apply creams or lotions. Sit on a shower stool when showering to keep from falling. Weight bearing status -Weightbearing as tolerated to the bilateral lower extremities. Medications -Pain medication per the discharging medical doctor -Take your Xarelto as previously prescribed. Other -Knee high [place] [employer] hose 23 hours per day -Consult physical and occupational therapy for mobilization. -Up to chair with assistance at least twice per day. -Follow up with your primary care physician to discuss testing for bone mineral density. Follow-up with Dr. Romano at the office 2 weeks from the surgery date for a post operative evaluation. Call the office at [phone] to schedule appointment. Referrals: NONE,PCP [Primary Care Provider] -
--- NOTE | 2017-05-07 20:11 | Orthopedics Progress Note ---
Date of Encounter: 05/07/17 Time of Encounter: 20:10 Subjective Principal diagnosis: s/p IM nail femur Interval history: The patient is without complaints. Afebrile vital signs are stable. Respiratory status improving. Incision is clean dry and intact. Has excoriated wounds in inguinal region with some eschar. Neurovascularly intact with regard to bilateral lower extremities. Assessment :stable. Plan mobilize ,continue analgesics, discharge planning. Would consider wound care consult for wound care of inguinal region/instructions prior to discharge. Objective Vital signs: Vital Signs Temp Pulse Resp BP Pulse Ox 05/07/17 16:00 98.5 F 64 22 125/83 95 05/07/17 11:00 98.2 F 59 20 117/74 92 05/07/17 06:45 98.5 F 68 16 134/78 96 05/07/17 03:38 97 05/06/17 23:26 97 05/06/17 23:05 98.3 F 65 18 127/76 97 Intake and Output 05/07/17 05/07/17 05/07/17 07:59 15:59 23:59 Intake Total 200 / 200 350 / 350 200 / 200 Balance 200 / 200 350 / 350 200 / 200 Intake: IV Fluids 200 / 200 200 / 200 Cipro Premix 400 MG/200 ML 400 200 / 200 200 / 200 mg In 200 ml @ 200 mls/hr IVPB Q12HR [facility]KA Rx#:[id number] Oral 350 / 350 Other: Meal Lunch Percent of Meal Consumed 60% Stool Size Large Stool Consistency loose Stool Color Brown # Urine Diapers 1 1 1 Blood Glucose* 160 171 323 - Labs CBC & BMP: 05/06/17 08:41 05/05/17 04:10 Labs: Abnormal lab results WBC 11.6 K/mcL (4.3-11.1) H 05/05/17 04:10 RBC 3.13 M/mcL (3.82-4.97) L 05/05/17 04:10 Hgb 8.5 g/dL (11.5-15.4) L 05/06/17 08:41 Hct 26.6 % (35.3-44.9) L 05/06/17 08:41 MCV 82.1 fL (83.0-100.0) L 05/05/17 04:10 MCH 26.5 pg (28.0-33.3) L 05/05/17 04:10 RDW 16.6 % (11.5-14.5) H 05/05/17 04:10 Plt Count 119 K/mcL (140-400) L 05/05/17 04:10 Band Neutrophils % 10.0 % (0-4) H 05/04/17 09:50 Nucleated RBCs/100 WBC 0.6 /100 WBC (0) H 05/05/17 04:10 Platelet Estimate Slight Decrease (Normal) L 05/05/17 04:10 Large Platelets Present (Not Present) A 05/05/17 04:10 PT 13.3 Seconds (9.4-12.1) H 05/03/17 17:57 ABG pCO2 46 mmHg (35-45) H 05/06/17 12:01 ABG pO2 127 mmHg (85-104) H 05/06/17 12:01 ABG HCO3 31 mEq/L (21-27) H 05/06/17 12:01 ABG Total CO2 33 mEq/L (20-26) H 05/06/17 12:01 ABG O2 Saturation 99 % (95-98) H 05/06/17 12:01 ABG Base Excess 6.3 mEq/L (-2.0 to 3.0) H 05/06/17 12:01 BUN 30 mg/dL (7-20) H 05/05/17 04:10 Est GFR ( Amer) 58 (> 60) L 05/05/17 04:10 Est GFR (Non-Af Amer) 48 (> 60) L 05/05/17 04:10 BUN/Creatinine Ratio 28 (6-26) H 05/05/17 04:10 Glucose 148 mg/dL (70-99) H 05/05/17 04:10 POC Glucose 323 (58-89) H 05/07/17 16:37 Calcium 7.8 mg/dL (8.6-10.8) L 05/05/17 04:10 % Saturation 74 % (15-50) H 05/04/17 09:50 Transferrin 159 mg/dL (180-382) L 05/04/17 09:50 Ferritin 770 ng/ml (5-204) H 05/04/17 09:50 Serum Total Protein 5.0 g/dL (6.0-8.3) L 05/03/17 17:57 Albumin 2.5 g/dL (3.5-5.0) L 05/03/17 17:57 Albumin/Globulin Ratio 1.0 (1.1-2.2) L 05/03/17 17:57 Vitamin B12 > 2000 pg/mL (213-816) H 05/04/17 09:50 Urine Clarity Hazy (Clear) A 05/05/17 00:00 Urine Protein 30 mg/dL (Neg-Trace) H 05/05/17 00:00 Urine Blood Large (Negative) H 05/05/17 00:00 Urine Nitrite Positive (Negative) A 05/05/17 00:00 Urine Bilirubin Small (Negative) H 05/05/17 00:00 Ur Leukocyte Esterase Moderate (Negative) H 05/05/17 00:00 Urine Microscopic RBC 5-15 per hpf (0-3) H 05/05/17 00:00 Urine Microscopic WBC 50-100 per hpf (0-3) H 05/05/17 00:00 Ur Squamous Epith Cells Moderate per lpf (None-Few) H 05/05/17 00:00 Urine Bacteria Many per hpf (None-Few) H 05/05/17 00:00 Ur Culture Indicated? YES (NO) A 05/05/17 00:00 - VTE Documentation of Mechanical Device: Intermittent pneumatic compression device Consult Discharge Plan - Plan Additional Instructions: RETIREMENT DISCHARGE INSTRUCTIONS Dr. Romano PROCEDURE PERFORMED Reduction and fixation of left hip. Incision care -Daily dressing changes to the left hip with dry gauze and either paper tape or medipore tape. -Avoid soaking wound in water (no hot tubs, bathtubs, swimming pools). -May shower after 2 weeks from surgery date. Carefully wash incision with soap and water. Gently pat it dry. Don't rub the incision, or apply creams or lotions. Sit on a shower stool when showering to keep from falling. Weight bearing status -Weightbearing as tolerated to the bilateral lower extremities. Medications -Pain medication per the discharging medical doctor -Take your Xarelto as previously prescribed. Other -Knee high [place] ROS[employer] hose 23 hours per day -Consult physical and occupational therapy for mobilization. -Up to chair with assistance at least twice per day. -Follow up with your primary care physician to discuss testing for bone mineral density. Follow-up with Dr. Romano at the office 2 weeks from the surgery date for a post operative evaluation. Call the office at [phone] to schedule appointment. Referrals: NONE,PCP [Primary Care Provider] -
--- NOTE | 2017-05-08 07:10 | Orthopedics Progress Note ---
Date of Encounter: 05/08/17 Time of Encounter: 07:06 - Assessment and Plan (1) Hip fracture, left Current Visit: Yes Status: Acute Qualifiers: Encounter type: initial encounter Fracture type: closed Qualified Code(s) : S72.002A - Fracture of unspecified part of neck of left femur, initial encounter for closed fracture Subjective Principal diagnosis: s/p IM nail femur Interval history: S: Mental status has improved over the weekend and she is much less confused. She has not mobilized with therapy which is not around over the weekend. She was receiving treatment for an Escherichia coli urinary tract infection. O: Afebrile and her vital signs are stable Left thigh incisions are clean, dry, and intact. She does have some excoriation in the groin within the intertriginous area which is being treated with topical nystatin. No significant pain with passive range of motion of the thigh or with axial loading. She grossly flexes and extends the toes and ankle and the foot is sensate and well-perfused. 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 Objective Vital signs: Vital Signs Temp Pulse Resp BP Pulse Ox 05/08/17 04:24 97.4 F L 79 18 149/76 94 05/07/17 23:39 97.6 F 63 17 136/78 97 05/07/17 20:34 98.9 F 67 18 119/73 99 05/07/17 16:00 98.5 F 64 22 125/83 95 05/07/17 11:00 98.2 F 59 20 117/74 92 Intake and Output 05/07/17 05/07/17 05/08/17 15:59 23:59 07:59 Intake Total 350 / 350 200 / 200 240 / 240 Balance 350 / 350 200 / 200 240 / 240 Intake: IV Fluids 200 / 200 Cipro Premix 400 MG/200 ML 400 200 / 200 mg In 200 ml @ 200 mls/hr IVPB Q12HR [facility] Rx#:[id number] Oral 350 / 350 0 / 0 240 / 240 Other: Meal Lunch Percent of Meal Consumed 60% Stool Size Large Stool Consistency loose Stool Color Brown # Urine Diapers 1 1 2 Blood Glucose* 171 238 - Labs CBC & BMP: 05/06/17 08:41 05/05/17 04:10 Labs: Abnormal lab results WBC 11.6 K/mcL (4.3-11.1) H 05/05/17 04:10 RBC 3.13 M/mcL (3.82-4.97) L 05/05/17 04:10 Hgb 8.5 g/dL (11.5-15.4) L 05/06/17 08:41 Hct 26.6 % (35.3-44.9) L 05/06/17 08:41 MCV 82.1 fL (83.0-100.0) L 05/05/17 04:10 MCH 26.5 pg (28.0-33.3) L 05/05/17 04:10 RDW 16.6 % (11.5-14.5) H 05/05/17 04:10 Plt Count 119 K/mcL (140-400) L 05/05/17 04:10 Band Neutrophils % 10.0 % (0-4) H 05/04/17 09:50 Nucleated RBCs/100 WBC 0.6 /100 WBC (0) H 05/05/17 04:10 Platelet Estimate Slight Decrease (Normal) L 05/05/17 04:10 Large Platelets Present (Not Present) A 05/05/17 04:10 PT 13.3 Seconds (9.4-12.1) H 05/03/17 17:57 ABG pCO2 46 mmHg (35-45) H 05/06/17 12:01 ABG pO2 127 mmHg (85-104) H 05/06/17 12:01 ABG HCO3 31 mEq/L (21-27) H 05/06/17 12:01 ABG Total CO2 33 mEq/L (20-26) H 05/06/17 12:01 ABG O2 Saturation 99 % (95-98) H 05/06/17 12:01 ABG Base Excess 6.3 mEq/L (-2.0 to 3.0) H 05/06/17 12:01 BUN 30 mg/dL (7-20) H 05/05/17 04:10 Est GFR ( Amer) 58 (> 60) L 05/05/17 04:10 Est GFR (Non-Af Amer) 48 (> 60) L 05/05/17 04:10 BUN/Creatinine Ratio 28 (6-26) H 05/05/17 04:10 Glucose 148 mg/dL (70-99) H 05/05/17 04:10 POC Glucose 238 (58-89) H 05/07/17 20:38 Calcium 7.8 mg/dL (8.6-10.8) L 05/05/17 04:10 % Saturation 74 % (15-50) H 05/04/17 09:50 Transferrin 159 mg/dL (180-382) L 05/04/17 09:50 Ferritin 770 ng/ml (5-204) H 05/04/17 09:50 Serum Total Protein 5.0 g/dL (6.0-8.3) L 05/03/17 17:57 Albumin 2.5 g/dL (3.5-5.0) L 05/03/17 17:57 Albumin/Globulin Ratio 1.0 (1.1-2.2) L 05/03/17 17:57 Vitamin B12 > 2000 pg/mL (213-816) H 05/04/17 09:50 Urine Clarity Hazy (Clear) A 05/05/17 00:00 Urine Protein 30 mg/dL (Neg-Trace) H 05/05/17 00:00 Urine Blood Large (Negative) H 05/05/17 00:00 Urine Nitrite Positive (Negative) A 05/05/17 00:00 Urine Bilirubin Small (Negative) H 05/05/17 00:00 Ur Leukocyte Esterase Moderate (Negative) H 05/05/17 00:00 Urine Microscopic RBC 5-15 per hpf (0-3) H 05/05/17 00:00 Urine Microscopic WBC 50-100 per hpf (0-3) H 05/05/17 00:00 Ur Squamous Epith Cells Moderate per lpf (None-Few) H 05/05/17 00:00 Urine Bacteria Many per hpf (None-Few) H 05/05/17 00:00 Ur Culture Indicated? YES (NO) A 05/05/17 00:00 - VTE Documentation of Mechanical Device: Intermittent pneumatic compression device Consult Discharge Plan - Plan Additional Instructions: USP DISCHARGE INSTRUCTIONS Dr. Romano PROCEDURE PERFORMED Reduction and fixation of left hip. Incision care -Daily dressing changes to the left hip with dry gauze and either paper tape or medipore tape. -Avoid soaking wound in water (no hot tubs, bathtubs, swimming pools). -May shower after 2 weeks from surgery date. Carefully wash incision with soap and water. Gently pat it dry. Don't rub the incision, or apply creams or lotions. Sit on a shower stool when showering to keep from falling. Weight bearing status -Weightbearing as tolerated to the bilateral lower extremities. Medications -Pain medication per the discharging medical doctor -Take your Xarelto as previously prescribed. Other -Knee high MARIA DEL ROSARIO hose 23 hours per day -Consult physical and occupational therapy for mobilization. -Up to chair with assistance at least twice per day. -Follow up with your primary care physician to discuss testing for bone mineral density. Follow-up with Dr. Romano at the office 2 weeks from the surgery date for a post operative evaluation. Call the office at [phone] to schedule appointment. Referrals: NONE,PCP [Primary Care Provider] -
[2017-05-08] MEDS: Insulin LISPRO 300 UNITS/3 ML VIAL SQ SCH ×4 (08:39→21:09)
[2017-05-08] MEDS: Magnesium Oxide 400 MG TABLET PO SCH (08:43)
[2017-05-08] MEDS: predniSONE 10 MG TABLET PO SCH (08:43)
[2017-05-08] MEDS: Nystatin POWDER 30 GM BOTTLE TP SCH ×2 (08:44→21:02)
[2017-05-08] MEDS: *HR* HYDROcodone/Acet 5/325 mg TABLET PO PRN (11:45)
--- NOTE | 2017-05-08 17:05 | Discharge Summary ---
Date of Encounter: 05/08/17 Time of Encounter: 10:30 - Discharge Diagnosis (1) Hip fracture, left Priority: Primary Status: Acute Qualifiers: Encounter type: initial encounter Fracture type: closed Qualified Code(s) : S72.002A - Fracture of unspecified part of neck of left femur, initial encounter for closed fracture (2) Altered mental status Priority: Secondary Status: Resolved Qualifiers: Altered mental status type: somnolence Qualified Code(s): R40.0 - Somnolence (3) Leukocytosis Priority: Secondary Status: Acute Qualifiers: Leukocytosis type: unspecified Qualified Code(s): D72.829 - Elevated white blood cell count, unspecified (4) Atrial fibrillation Priority: Secondary Status: Chronic Qualifiers: Atrial fibrillation type: chronic Qualified Code(s): I48.2 - Chronic atrial fibrillation (5) Hypertension Priority: Secondary Status: Chronic Qualifiers: Hypertension type: essential hypertension Qualified Code(s): I10 - Essential (primary) hypertension (6) TIA (transient ischemic attack) Priority: Secondary Status: Chronic Qualifiers: Transient cerebral ischemia type: unspecified Qualified Code(s): G45.9 - Transient cerebral ischemic attack, unspecified (7) DVT prophylaxis Priority: Secondary Status: Acute (8) Diabetes mellitus Priority: Secondary Status: Chronic Qualifiers: Diabetes mellitus type: type 2 Diabetes mellitus complication status: with unspecified complications 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 insulin use: without termite renewal inspector use Qualified Code(s): E11.8 - Type 2 diabetes mellitus with unspecified complications (9) Anemia Priority: Secondary Status: Chronic Qualifiers: Anemia type: unspecified type Qualified Code(s): D64.9 - Anemia, unspecified (10) Urinary tract infection Priority: Secondary Status: Acute Comments: With Escherichia coli Qualifiers: Urinary tract infection type: acute cystitis Hematuria presence: without hematuria Qualified Code(s): N30.00 - Acute cystitis without hematuria - Discharge Medications Home Medications: Atorvastatin Calcium [Lipitor] 20 mg PO DAILY 05/02/17 [History] Calcium Carbonate/Vitamin D3 [Oyster Shell Calcium-Vit D Tab] 1 tab PO DAILY [History] Cholecalciferol (Vitamin D3) [Vitamin D] 1,000 unit PO DAILY 05/02/17 [History] Cyanocobalamin (Vitamin B-12) [Vitamin B-12] 1,000 mcg SL DAILY 05/02/17 [ History] Duloxetine HCl [Cymbalta] 60 mg PO DAILY 05/02/17 [History] Folic Acid 1 mg PO DAILY 05/02/17 [History] HYDROcodone/Acet 10/325 mg [Kittrell 10-325 mg] 1 tab PO Q4H PRN 05/02/17 [History] Levothyroxine [Synthroid] 100 mcg PO DAILY 05/02/17 [History] Magnesium Oxide [Magnesium] 400 mg PO DAILY 05/02/17 [History] Metformin HCl [Metformin HCl ER] 1,000 mg PO BID 05/02/17 [History] Omeprazole 20 mg PO DAILY 05/02/17 [History] Pioglitazone HCl [Actos] 30 mg PO DAILY 05/02/17 [History] Potassium Chloride [K-Tab ER] 20 meq PO DAILY 05/02/17 [History] Rivaroxaban [Xarelto] 20 mg PO DAILY 05/02/17 [History] Sotalol [Betapace] 80 mg PO Q12HR 05/02/17 [History] predniSONE [PredniSONE] 10 mg PO DAILY 05/02/17 [History] Allergies/Adverse Reactions: 3 Allergy/AdvReac Type Severity Reaction Status Date / Time amiodarone Allergy Nausea Verified 05/02/17 23:35 Penicillins Allergy Hives Verified 05/02/17 23:35 Pneumococcal Vaccine Allergy See Verified 05/02/17 23:35 Comments Streptomycin Allergy Anaphylaxis Verified 05/02/17 23:35 Tetanus Vaccines and Toxoid Allergy See Verified 05/02/17 23:35 Comments Date of admission: 05/03/17 06:32 Primary care physician: PCP NONE Consults: 05/03/17 00:55 Consult to Physician [CONS] Routine Consulting Provider: Mike Romano Reason for Consult: left hip fracture Call Completed: Yes 05/03/17 18:24 Consult to Occupational Therapy [CONS] Routine Comment: Evaluate, develop and implement POC Reason for Consult: post hip surgery Consult to Orthopedic Navigator [CONS] [CONS] Routine Consult to Physical Therapy [CONS] Routine Comment: Evaluate, develop and implement POC Reason for Consult: post hip surgery Consult to Instrument Repairer Helper [CONS] Routine Reason for SW Consult: post -op hip fracture RT Post Op Consult [CONS] Routine 05/05/17 12:09 Consult to Invasive Line Access Team [CONS] Routine Reason for Consult: Limited vascular access Line Type: EPIV 05/08/17 11:28 Consult to Wound Care [CONS] Routine Reason for Consult: open excoriation to skin folds Call Completed: Yes Discharging clinician: Natali Oconnell Anticipated date of discharge: 05/09/17 - Patient Status Disposition: Transfer SNF Condition: Fair Functional capacity at discharge: wheelchair bound Overall status at discharge: patient is progressing back to baseline - Discharge Instructions Follow Up With: NONE,PCP [Primary Care Provider] - (in 1 week) Mike Romano MD [Partnered Physician] - (In 10 days) Additional Instructions: ALF DISCHARGE INSTRUCTIONS Dr. Romano PROCEDURE PERFORMED Reduction and fixation of left hip. Incision care -Daily dressing changes to the left hip with dry gauze and either paper tape or medipore tape. -Avoid soaking wound in water (no hot tubs, bathtubs, swimming pools). -May shower after 2 weeks from surgery date. Carefully wash incision with soap and water. Gently pat it dry. Don't rub the incision, or apply creams or lotions. Sit on a shower stool when showering to keep from falling. Weight bearing status -Weightbearing as tolerated to the bilateral lower extremities. Medications -Pain medication per the discharging medical doctor -Take your Xarelto as previously prescribed. Other -Knee high [place] ROS[place]IO hose 23 hours per day -Consult physical and occupational therapy for mobilization. -Up to chair with assistance at least twice per day. -Follow up with your primary care physician to discuss testing for bone mineral density. Follow-up with Dr. Romano at the office 2 weeks from the surgery date for a post operative evaluation. Call the office at [phone] to schedule appointment. - Diet and Activity Activity: as per physical therapy Diet: diabetic diet, low fat, low cholesterol, low salt diet Hospital course: Ms. Gunn is a 81 year old female patient with history of diabetes mellitus type 2, prior TIA, A. fib on chronic anticoagulation with Xarelto, essential hypertension was hospitalized here after a fall resulting in left hip fracture. Was evaluated by orthopedics and recommended surgery for this. Patient was taken to the OR on 05/03 for open reduction and medullary nail fixation of left proximal femur. During surgery, patient lost IV access and central venous catheterization was attempted at the right subclavian region which was unsuccessful. A right femoral line was then placed. Patient did develop hypotension postsurgery and required blood transfusion. Since then her blood pressures have been stabilized. She did become excessively somnolent immediately after procedure and this persisted for 2 days postprocedure. She was evaluated with CT scan of the head which was negative for any acute abnormalities. Her urine culture did suggest urinary tract infection and patient was treated with antibiotics for this. Gradually the patient's mental status improved and she has not been able to participate in physical therapy. Her Xarelto had been held for surgery and was resumed after her surgery. At this time, she has been recommended placement to skilled rehabilitation by physical therapy and she will be discharged to skilled rehabilitation once she has a bed available for her and has been accepted. She will continue Xarelto and antibiotics for her urinary tract infection. - Time Spent with Patient Total time spent providing and/or coordinating discharge services: Greater than 30 minutes (40 min) - Constitutional Vitals: Temp Pulse Resp BP Pulse Ox 99.0 F 61 20 126/53 100 05/08/17 15:09 05/08/17 11:28 05/08/17 15:09 05/08/17 15:09 05/08/17 15:09 General appearance: Present: cooperative, A&O X 2, no acute distress, obese, answers questions appropriately - Neck Neck exam general surgery: Present: supple, trachea midline. Absent: lymphadenopathy - Respiratory Respiratory exam: Present: CTAB. Absent: accessory muscle use, rales, rhonchi, wheezes - Cardiovascular Cardiovascular exam: Present: RRR, +S1, +S2. Absent: diastolic murmur, gallop, rubs, systolic murmur - GI/Abdominal GI/Abdominal exam: Present: normal bowel sounds, soft, no peritoneal signs. Absent: distended, tenderness - Extremities Exam Extremities exam: Present: tenderness (Left hip), warm, radial pulses palpable and symmetrical. Absent: calf tenderness, cyanotic, pedal edema - VTE Documentation of Mechanical Device: Intermittent pneumatic compression device
--- NOTE | 2017-05-08 17:11 | Physician Discharge Referral ---
ExtendedCare Referral Info Institutional Level of Care: Skilled - Diagnosis (1) Hip fracture, left Priority: Primary Status: Acute (2) Altered mental status Priority: Secondary Status: Resolved (3) Leukocytosis Priority: Secondary Status: Acute (4) Atrial fibrillation Priority: Secondary Status: Chronic (5) Hypertension Priority: Secondary Status: Chronic (6) TIA (transient ischemic attack) Priority: Secondary Status: Chronic (7) DVT prophylaxis Priority: Secondary Status: Acute (8) Diabetes mellitus Priority: Secondary Status: Chronic (9) Anemia Priority: Secondary Status: Chronic (10) Urinary tract infection Status: Acute - Transfer Medications Prescriptions: Methocarbamol [Robaxin] 750 mg PO Q8HR PRN #30 tablet PRN Reason: Muscle Spasm HYDROcodone/Acet 10/325 mg [Warren 10-325 mg] 1 tab PO Q4H PRN #20 tablet PRN Reason: Pain Home Medications: Atorvastatin Calcium [Lipitor] 20 mg PO DAILY 05/02/17 [History] Calcium Carbonate/Vitamin D3 [Oyster Shell Calcium-Vit D Tab] 1 tab PO DAILY [History] Cholecalciferol (Vitamin D3) [Vitamin D3] 1,000 unit PO DAILY 05/02/17 [History] Cyanocobalamin (Vitamin B-12) [Vitamin B-12] 1,000 mcg SL DAILY 05/02/17 [ History] Duloxetine HCl [Cymbalta] 60 mg PO DAILY 05/02/17 [History] Folic Acid 1 mg PO DAILY 05/02/17 [History] Levothyroxine [Synthroid] 100 mcg PO DAILY 05/02/17 [History] Magnesium Oxide [Magnesium] 400 mg PO DAILY 05/02/17 [History] Metformin HCl [Metformin HCl ER] 1,000 mg PO BID 05/02/17 [History] Omeprazole 20 mg PO DAILY 05/02/17 [History] Pioglitazone HCl [Actos] 30 mg PO DAILY 05/02/17 [History] Potassium Chloride [K-Tab ER] 20 meq PO DAILY 05/02/17 [History] Rivaroxaban [Xarelto] 20 mg PO DAILY 05/02/17 [History] Sotalol [Betapace] 80 mg PO Q12HR 05/02/17 [History] predniSONE [PredniSONE] 10 mg PO DAILY 05/02/17 [History] Docusate [Colace] 100 mg PO BID PRN capsule 05/08/17 [Rx] HYDROcodone/Acet 10/325 mg [Warren 10-325 mg] 1 tab PO Q4H PRN #20 tablet [Rx] Methocarbamol [Robaxin] 750 mg PO Q8HR PRN #30 tablet 05/08/17 [Rx] Allergies/Adverse Reactions: 3 Allergy/AdvReac Type Severity Reaction Status Date / Time amiodarone Allergy Nausea Verified 05/02/17 23:35 Penicillins Allergy Hives Verified 05/02/17 23:35 Pneumococcal Vaccine Allergy See Verified 05/02/17 23:35 Comments Streptomycin Allergy Anaphylaxis Verified 05/02/17 23:35 Tetanus Vaccines and Toxoid Allergy See Verified 05/02/17 23:35 Comments - Respiratory Orders Oxygen / L per min Smoking Cessation: Smoking cessation has been advised. For more information, call the [employer] Quit Line at 2-653-WHWS-NOW. - Advance Directives Code Status: Full Code - Mobility Orders Other (per PT) - Rehabiliation Orders Rehab Potential: Fair Rehab Orders: Evaluation for Physical Therapy, Evaluation for Occupational Therapy - Treatments List/Other: -Daily dressing changes to the left hip with dry gauze and either paper tape or medipore tape. -Avoid soaking wound in water (no hot tubs, bathtubs, swimming pools). -May shower after 2 weeks from surgery date. Carefully wash incision with soap and water. Gently pat it dry. Don't rub the incision, or apply creams or lotions. Sit on a shower stool when showering to keep from falling. Weight bearing status -Weightbearing as tolerated to the bilateral lower extremities. - Knee high MARIA DEL ROSARIO hose 23 hours per day - Diet Orders No Concentrated Sweets (and diabetic), Cardiac CERTIFICATION: I certify that the transfer of the above named patient to an Extended Care Facility is necessary for the continuing treatment of the diagnosis listed. The above information is true and accurate reflection of patient's current condition. Confidential - Redisclosure prohibited without a patient's written consent.
[2017-05-08] MEDS: *HR* Rivaroxaban 15 MG TABLET PO SCH (17:51)
[2017-05-08] MEDS: Miconazole 2% ointment 114 GM TUBE TP SCH (21:02)
[2017-05-09 07:08] VITALS: BP 132/79
[2017-05-09] MEDS: Insulin LISPRO 300 UNITS/3 ML VIAL SQ SCH (07:33)
[2017-05-09] MEDS: predniSONE 10 MG TABLET PO SCH (09:27)
[2017-05-09] MEDS: Magnesium Oxide 400 MG TABLET PO SCH (09:27)
[2017-05-09] MEDS: Miconazole 2% ointment 114 GM TUBE TP SCH (09:29)
[2017-05-09] MEDS: Nystatin POWDER 30 GM BOTTLE TP SCH (09:29)
[2017-05-09] MEDS: *HR* HYDROcodone/Acet 5/325 mg TABLET PO PRN (10:52)
== END 2017-05-09 11:30 | DRG 481 ==
LOC: 3NENU
PROVIDERS: ADMIT Internal Medicine; ATTEND Internal Medicine

== ENCOUNTER 2017-06-14 20:57 | Inpatient (IN) ==
[2017-06-15] MEDS ORDERED: *HR* HYDROcodone/Acet 10/325 mg TABLET PO PRN (01:44)
[2017-06-15] MEDS ORDERED: Ipratropium/Albuterol Neb 3 ML IH PRN (01:46)
[2017-06-15] MEDS ORDERED: Ondansetron 4 MG/2 ML VIAL IVP PRN (01:48)
[2017-06-15] MEDS ORDERED: Acetaminophen 325 MG TABLET PO PRN (01:48)
[2017-06-15] MEDS ORDERED: Naloxone 0.4 MG/ML INJ IVP PRN (01:48)
--- NOTE | 2017-06-15 01:53 | Internal Med History&Physical ---
Date of Encounter: 06/15/17 Time of Encounter: 01:50 Assessment and Plan (1) Sepsis Current visit: Yes Status: Acute Sepsis possibly secondary to healthcare associated pneumonia present upon admission Continue cefepime and start Levaquin, consider vancomycin Lactic acid, hydroxybutyric acid Omeprazole for GI prophylaxis and Xarelto for DVT prophylaxis. The patient will be admitted as inpatient, expected to stay more than 2 midnights. DNR CC. Time spent on this admission 40 minutes. Qualifiers: Sepsis type: sepsis due to unspecified organism Qualified Code(s): A41.9 - Sepsis, unspecified organism (2) Healthcare-associated pneumonia Current visit: Yes Status: Acute (3) CHF (congestive heart failure) Current visit: Yes Status: Acute Acute CHF with bilateral pleural effusions, systolic versus diastolic Strict I's and O's and daily weight, Lasix IV, hold potassium due to hyperkalemia Check echocardiogram Qualifiers: Congestive heart failure type: unspecified congestive heart failure type Congestive heart failure chronicity: acute on chronic Qualified Code(s): I50.9 - Heart failure, unspecified (4) Hip fracture, left Current visit: No Status: Acute Qualifiers: Encounter type: initial encounter Fracture type: closed Qualified Code(s) : S72.002A - Fracture of unspecified part of neck of left femur, initial encounter for closed fracture (5) Atrial fibrillation Current visit: No Status: Chronic Atrial fibrillation with rapid ventricular response possibly related to CHF Continue sotalol and Xarelto Consider cardiology consult Qualifiers: Atrial fibrillation type: chronic Qualified Code(s): I48.2 - Chronic atrial fibrillation (6) Diabetes mellitus Current visit: No Status: Chronic Discontinue pioglitazone permanently as it can provoke CHF Insulin sliding scale Qualifiers: Diabetes mellitus type: type 2 Diabetes mellitus complication status: with unspecified complications Diabetes mellitus moth exterminator insulin use: without moth exterminator use Qualified Code(s): E11.8 - Type 2 diabetes mellitus with unspecified complications Internal Medicine - H&P: HPI Chief complaint: Shortness of breath Admitted From: Emergency Dept History of present illness: Ms. Gunn is a 81 year old female with a past medical history of atrial fibrillation on sotalol and Xarelto, CVAs, hypothyroidism, hypertension, diabetes type 2 not insulin-dependent, DVTs discharged from this hospital at the end of April of this year to an ECF after having performed an ORIF due to left femoral fracture. The patient was sent from the ECF as she had an abnormal chest x-ray but described low left lung volumes and possible plug or obstruction. CT scan showed bilateral small pleural effusions more on the left than the right with possible atelectases, could not exclude pneumonia, showed also severe L1 compression fracture and a moderate T12 compression fracture. Patient is very confused and unable to provide any history, disoriented. White blood cell count is 14.7 hemoglobin 10.2 platelets 467 potassium 5.5 and iron gap is 17 glucose is 174. Blood pressure was 94/61 and heart rate 116, the patient went to the emergency room close to [place] where she was given cefepime, Lopressor Zosyn and vancomycin., The patient is also on pioglitazone , no echocardiogram available Past Med Surg Social Fam HX - Past Medical History Medical history: atrial fibrillation (On sotalol and Xarelto), CVA, diabetes ( Not insulin-dependent), hyperlipidemia, hypertension, thyroid disease ( Hypothyroidism), other (DVT, iron deficiency anemia, recurrent UTIs, TIAs and CVAs) Psychiatric history: depression - Past Surgical History Surgical History: hysterectomy, orthopedic, other - Social History Smoking Status: Former smoker Alcohol use: none Drug use: none - Family History Sister Living Status: Hx Family Cancer: Yes Mother Living Status: Hx Family Cancer: Yes (leukemia) - Additional Family History Additional family history: Mother with leukemia Internal Medicine - H&P: Meds Atorvastatin Calcium [Lipitor] 20 mg PO DAILY 05/02/17 [History] Calcium Carbonate/Vitamin D3 [Oyster Shell Calcium-Vit D Tab] 1 tab PO DAILY [History] Cholecalciferol (Vitamin D3) [Vitamin D3] 1,000 unit PO DAILY 05/02/17 [History] Cyanocobalamin (Vitamin B-12) [Vitamin B-12] 1,000 mcg SL DAILY 05/02/17 [ History] Duloxetine HCl [Cymbalta] 60 mg PO DAILY 05/02/17 [History] Folic Acid 1 mg PO DAILY 05/02/17 [History] Levothyroxine [Synthroid] 100 mcg PO DAILY 05/02/17 [History] Magnesium Oxide [Magnesium] 400 mg PO DAILY 05/02/17 [History] Metformin HCl [Metformin HCl ER] 1,000 mg PO BID 05/02/17 [History] Omeprazole 20 mg PO DAILY 05/02/17 [History] Pioglitazone HCl [Actos] 30 mg PO DAILY 05/02/17 [History] Potassium Chloride [K-Tab ER] 20 meq PO DAILY 05/02/17 [History] Rivaroxaban [Xarelto] 20 mg PO DAILY 05/02/17 [History] Sotalol [Betapace] 80 mg PO Q12HR 05/02/17 [History] predniSONE [PredniSONE] 10 mg PO DAILY 05/02/17 [History] Docusate [Colace] 100 mg PO BID PRN capsule 05/08/17 [Rx] HYDROcodone/Acet 10/325 mg [[place] 10-325 mg] 1 tab PO Q4H PRN #20 tablet [Rx] Methocarbamol [Robaxin] 750 mg PO Q8HR PRN #30 tablet 05/08/17 [Rx] HYDROcodone/Acet 10/325 mg [[place] 10-325 mg] 1 tab PO Q4HR PRN #20 tab 05/09/17 [Rx] Methocarbamol [Robaxin] 750 mg PO Q8HR #30 tablet 05/09/17 [Rx] 3 Allergy/AdvReac Type Severity Reaction Status Date / Time amiodarone Allergy Nausea Verified 05/02/17 23:35 Penicillins Allergy Hives Verified 05/02/17 23:35 Pneumococcal Vaccine Allergy See Verified 05/02/17 23:35 Comments Streptomycin Allergy Anaphylaxis Verified 05/02/17 23:35 Tetanus Vaccines and Toxoid Allergy See Verified 05/02/17 23:35 Comments All Systems PM: A 10-system review of systems was performed and is negative for pertinent findings except as documented above in the HPI. Review of systems: Unable to complete review of systems due to the patient's confusion - Constitutional Vitals: Temp Pulse Resp BP Pulse Ox 98.1 F 126 20 120/81 100 06/15/17 00:17 06/15/17 00:17 06/15/17 00:17 06/15/17 00:17 06/15/17 00:17 General appearance: Present: A&O X 0 - Head Head exam: Present: atraumatic, normocephalic - Eye Eye exam: Present: PERRL, conjuntiva pink, sclera anicteric Pupils: Present: PERRL - Neck Neck exam general surgery: Present: supple, trachea midline. Absent: lymphadenopathy - Respiratory Respiratory exam: Present: decreased breath sounds (Bibasilar crackles), CTAB. Absent: accessory muscle use, rales, rhonchi, wheezes - Cardiovascular Cardiovascular exam: Present: RRR, +S1, +S2. Absent: diastolic murmur, gallop, rubs, systolic murmur - GI/Abdominal GI/Abdominal exam: Present: normal bowel sounds, soft, no peritoneal signs. Absent: distended, tenderness - Extremities Exam Extremities exam: Present: warm, radial pulses palpable and symmetrical. Absent : calf tenderness, cyanotic, pedal edema - Neurological Exam Neurological exam: Present: CN II-XII intact, no focal deficits. Absent: oriented X3, pronater drift, facial droop, speech deficit - Skin Skin exam: Present: dry, intact (+1 pitting edema in both lower extremities, left hip wound without signs of infection)
[2017-06-15] MEDS ORDERED: Dextrose Gel 15 GM PO PRN ×2 (02:00)
[2017-06-15] MEDS ORDERED: D5% in Water 1,000 ML IVC PRN (02:00)
[2017-06-15] MEDS ORDERED: *HR* Dextrose 50 % in Water (Syg) 50 ML SYRINGE IVP PRN (02:00)
[2017-06-15] MEDS ORDERED: Furosemide 20 MG/2 ML VIAL IVP SCH (02:00)
[2017-06-15] MEDS: Cefepime HCl 1,000 MG in Water for inj. (sterile) 10 ML IVP SCH ×2 (05:17→18:18)
[2017-06-15 05:22] LABS: Basophils % 0.3 %; Eosinophils % 0.3 %; Immature Granulocytes % 1.4 % (0-4); Lymphocytes # 2.1 K/mcL (0.6-4.6); Lymphocytes % 16.2 %; Mean Corpuscular HGB Conc 30.3 g/dL (31.6-35.5); Mean Platelet Volume 9.6 fL (9.4-12.4); Monocytes # 1.4 K/mcL (0.0-1.3); Monocytes % 10.3 %; Neutrophils # 9.4 K/mcL (1.6-8.9); Platelet Count 480 K/mcL (140-400); Red Cell Distribution Width 17.8 % (11.5-14.5); Segmented Neutrophils % 71.5 %
[2017-06-15 05:24] LABS: Mean Corpuscular Volume 89.2 fL (83.0-100.0)
[2017-06-15 05:27] LABS: BUN/Creatinine Ratio 32 (6-26); Blood Urea Nitrogen 22 mg/dL (7-20); Calcium 9.3 mg/dL (8.6-10.8); Carbon Dioxide 22 mEq/L (19-29); Chloride 101 mEq/L (98-109); Glucose 98 mg/dL (70-99); Osmolality,Calculated 285 (280-300); Potassium 4.1 mEq/L (3.5-4.5); Sodium 136 mEq/L (136-145); eGFR For African Americans > 60 (> 60); eGFR For Non-African Americans > 60 (> 60)
[2017-06-15] MEDS ORDERED: Cefepime HCl 1,000 MG in D5% in Water (Mini-Bag+) 100 ML IVPB SCH (06:00)
--- NOTE | 2017-06-15 07:29 | Event Note ---
<Brandon Melo - Last Filed: 06/15/17 12:36> Date of Encounter: 06/15/17 Time of Encounter: 07:26 Patient seen and examined. Patient A&O x2, disoriented to time, and reports mild discomfort in joints, weakness, and dizziness. Son is at bedside and reports patient is usually A&Ox3 at baseline and has been confused for the past 1 week at rehab. She was started on Doxycycline for 7 days on 06/08/17 due to concern for left femur drainage. Physical Exam: GENERAL: WN/WD female in NAD HEENT: MMM, oropharynx clear CV: RRR,+S1, +S2, no M/R/G RESP: decreased breath sounds, bibasilar crackles GI: Abd soft, NT, positive BS EXTREMITIES: +1 pitting edema in both lower extremities SKIN: dry, intact, left hip wound without signs of infection, minimal serous drainage on dressing Assessment: 1) Acute metabolic encephalopathy secondary to sepsis due to possible healthcare associated pneumonia 2) CHF 3) Atrial fibrillation with rapid ventricular response possibly related to CHF 4) DM Type 2 5) Polymyalgia rheumatica 6) DVT prophylaxis Plan: 1) Patient discharged from [facility] April 2017 to an ECF after an ORIF due to left femoral fracture. She was started on Doxycycline for 7 days on 06/08/17 due to concern for left femur drainage. Continue Cefepime and Levaquin, consider Vancomycin. CT left hip pending to r/o hematoma or abscess formation. 2) Strict I's and O's and daily weight, Lasix IV, echocardiogram pending 3) Continue Sotalol and Xarelto 4) Insulin sliding scale 5) Continue home Prednisone 10mg PO daily 6) Continue Xarelto. Plan discussed with patient and son at bedside. All questions were answered. Patient is DNR CC. <Dagoberto Plasencia Keysha - Last Filed: 06/15/17 17:35> Date of Encounter: 06/15/17 Pt admitted earlier this AM for presumptive pneumonia. She has had a lot of pain in her hip. CT ordered and fluid collection present. Exam Alert. Mod distress due to pain Heart irreg and tachy I/P 1. Fluid collection L thigh - consulted Dr. Romano. Plan for OR tomorrow. On IV abx. 2. Possible pneumonia - recheck CXR in AM. 3. Hold Xarelto 4. Repeat INR. Agree with plan as above.
[2017-06-15] MEDS: Insulin LISPRO 300 UNITS/3 ML VIAL SQ SCH ×4 (08:26→21:58)
[2017-06-15] MEDS ORDERED: *HR* Rivaroxaban 10 MG TABLET PO SCH (09:00)
[2017-06-15] MEDS ORDERED: predniSONE 10 MG TABLET PO SCH (09:00)
[2017-06-15] MEDS ORDERED: Levofloxacin 750 MG/150 ML 750 MG/150 ML BAG IVPB SCH (09:00)
[2017-06-15] MEDS: predniSONE 10 MG TABLET PO SCH (12:48)
[2017-06-15] MEDS: *HR* Morphine 2 MG/ML SYRINGE IVP PRN (12:49)
[2017-06-15] MEDS ORDERED: *HR* HYDROmorphone (PF) 1 MG/ML SYRINGE IVP PRN (14:57)
[2017-06-15 15:37] LABS: Prothrombin Time 33.4 Seconds (9.4-12.1)
[2017-06-15] MEDS: Vancomycin 1,250 MG in D5% in Water 250 ML IVPB SCH (15:55)
[2017-06-15] MEDS ORDERED: *HR* HYDROmorphone 2 MG/ML SYRINGE IVP PRN (17:57)
--- NOTE | 2017-06-15 19:47 | Orthopedic Consult Note ---
Date of Encounter: 06/15/17 Time of Encounter: 17:00 Assessment and Plan (1) Hematoma Current Visit: Yes Status: Acute This patient was readmitted for encephalopathy and possible pneumonia 6 weeks out from ORIF of the left proximal femur with medullary nailing. She also has atrial fibrillation and RVR currently on Xarelto. She is found to have a left proximal thigh fluid collection on CT scan associated with a small draining fistula presumed to be a hematoma related to being on Xarelto which is possibly secondarily infected. I did discuss treatment options with the patient as well as her son who is at the bedside and my recommendation is for operative incision , drainage, irrigation, and debridement of the fluid collection with intraoperative cultures. The risks discussed included but were not limited to stiffness, bleeding, infection, blood clots, damage to neurovascular structures , tendons, ligaments, and bone. Also discussed was the risk of continued symptoms and possible need for further procedures. I did discuss the anesthesia risks including stroke, heart attack, and . Her INR is currently 3.0 and not suitable for drainage at this point. I did have a discussion with the hospitalist who will stop the Xarelto and we will check an INR in the morning and possibly give FFP. She was placed on the operative schedule for tomorrow pending the results of her INR. I did recommend an attempted aspiration at the bedside in order to try and obtain fluid for culture. After verbal consent was obtained from the son I did sterilize an area just anterior to the area of the punctate fistula. I did insert an 18- gauge spinal needle into the subcutaneous tissue and attempted aspiration and only a small amount of dark thick blood could be aspirated into the syringe. I did push the needle further down to the femur and tried to aspirate more fluid but was unable to do so. A total of only about three quarters of a milliliter were able to be aspirated. This was sent for aerobic and anaerobic cultures. An ABG was applied to the proximal lateral thigh. The patient has been placed on cefepime and Vancomycin by the hospitalist. History of Present Illness HPI: Ms. Gunn is a 81 year old female with a history of multiple medical comorbidities including atrial fibrillation on Xarelto. She is also diabetic and has had TIAs in the past. She is 6 weeks out from open reduction and internal fixation of the left proximal femur with medullary nailing. She was discharged to a [facility] facility and was initially made touchdown weightbearing but progressed to full weightbearing at 4 weeks. She had been doing quite well with therapy, getting up with a walker and putting weight down without pain to the left proximal thigh. About a week and a half ago the patient started noticing left proximal thigh pain and did develop concerns regarding her wound and she was seen in the office late last week by Beronica Remy who is concerned about an underlying hematoma and possible secondary infection and the patient was started on doxycycline. She was sent back to her [facility] facility. Earlier this morning the patient did have confusion and a chest x-ray showed possible pneumonia and she was sent to the emergency department where a CT scan was performed and showed small bilateral pleural effusions. Pneumonia could not be excluded and she was admitted to the hospitalist here at [facility] for further evaluation and management. The hospitalist performed a CT scan of the left thigh because of the ongoing thigh pain which showed a large fluid collection with air, concerning for an abscess. I am now evaluating the patient at the bedside and the above history is corroborated by the patient's son who is currently at the bedside. The patient herself is moderately confused and is unable to provide a detailed history, though she is able to verbalize or complaints. She does complain of isolated pain localized to the left proximal lateral thigh. There are no other complaints. Past Med Surg Social Fam HX - Past Medical History Medical history: atrial fibrillation (On sotalol and Xarelto), CVA, diabetes ( Not insulin-dependent), hyperlipidemia, hypertension, thyroid disease ( Hypothyroidism), other (DVT, iron deficiency anemia, recurrent UTIs, TIAs and CVAs) Psychiatric history: depression - Past Surgical History Surgical History: hysterectomy, orthopedic, other - Social History Smoking Status: Former smoker Alcohol use: none Drug use: none - Family History Sister Living Status: Hx Family Cancer: Yes Mother Living Status: Hx Family Cancer: Yes (leukemia) Medications and Allergies Atorvastatin Calcium [Lipitor] 20 mg PO DAILY 05/02/17 [History] Calcium Carbonate/Vitamin D3 [Oyster Shell Calcium-Vit D Tab] 1 tab PO DAILY [History] Cholecalciferol (Vitamin D3) [Vitamin D3] 1,000 unit PO DAILY 05/02/17 [History] Cyanocobalamin (Vitamin B-12) [Vitamin B-12] 1,000 mcg SL DAILY 05/02/17 [ History] Duloxetine HCl [Cymbalta] 60 mg PO DAILY 05/02/17 [History] Folic Acid 1 mg PO DAILY 05/02/17 [History] Levothyroxine [Synthroid] 100 mcg PO DAILY 05/02/17 [History] Magnesium Oxide [Magnesium] 400 mg PO DAILY 05/02/17 [History] Metformin HCl [Metformin HCl ER] 1,000 mg PO BID 05/02/17 [History] Omeprazole 20 mg PO DAILY 05/02/17 [History] Pioglitazone HCl [Actos] 30 mg PO DAILY 05/02/17 [History] Potassium Chloride [K-Tab ER] 20 meq PO DAILY 05/02/17 [History] Rivaroxaban [Xarelto] 20 mg PO DAILY 05/02/17 [History] Sotalol [Betapace] 80 mg PO Q12HR 05/02/17 [History] Docusate [Colace] 100 mg PO BID PRN capsule 05/08/17 [Rx] HYDROcodone/Acet 10/325 mg [[place] 10-325 mg] 1 tab PO Q4H PRN #20 tablet [Rx] Methocarbamol [Robaxin] 750 mg PO Q8HR #30 tablet 05/09/17 [Rx] 3 Allergy/AdvReac Type Severity Reaction Status Date / Time amiodarone Allergy Nausea Verified 05/02/17 23:35 Penicillins Allergy Hives Verified 05/02/17 23:35 Pneumococcal Vaccine Allergy See Verified 05/02/17 23:35 Comments Streptomycin Allergy Anaphylaxis Verified 05/02/17 23:35 Tetanus Vaccines and Toxoid Allergy See Verified 05/02/17 23:35 Comments All Systems Reviewed: A meaningful review of systems could not be performed due to her mental status. Physical Exam - Constitutional Vitals: Temp Pulse Resp BP Pulse Ox 97.5 F L 121 18 111/83 99 06/15/17 16:34 06/15/17 18:33 06/15/17 16:34 06/15/17 18:33 06/15/17 16:34 CONSTITUTIONAL -Vitals reviewed -The patient is well developed, well nourished, well groomed PSYCHIATRIC -Moderately confused -Pleasant mood LEFT LOWER EXTREMITY Inspection shows that the 3 thigh wounds have healed nicely, with the exception of a small punctate area within the lag screw incision at the midportion which has developed a small fistula. Through this I can express a few drops of low viscous sanguinous fluid. There is no surrounding redness, induration, or fluctuance. There is no cellulitis. There is tenderness to palpation over the proximal lateral thigh. No distal tenderness. I can gently passively range the hip and knee with a moderate amount of discomfort to the right proximal thigh during these maneuvers. She grossly motors the ankle and toes and the foot is grossly sensate and well-perfused. Diagnostic Imaging: I did personally review and interpret the CT scan of the left thigh which shows good position of the femoral nail in reasonable position of the proximal femur with ongoing healing. Near the insertion point of the lag screw there is a large fluid collection in the subcutaneous and deep compartments with some speckled amounts of air. Results - Labs Result Diagrams: 06/15/17 04:52 06/15/17 04:52 Labs: Abnormal lab results WBC 13.1 K/mcL (4.3-11.1) H 06/15/17 04:52 RBC 3.70 M/mcL (3.82-4.97) L 06/15/17 04:52 Hgb 10.0 g/dL (11.5-15.4) L 06/15/17 04:52 Hct 33.0 % (35.3-44.9) L 06/15/17 04:52 MCH 27.0 pg (28.0-33.3) L 06/15/17 04:52 MCHC 30.3 g/dL (31.6-35.5) L 06/15/17 04:52 RDW 17.8 % (11.5-14.5) H 06/15/17 04:52 Plt Count 480 K/mcL (140-400) H 06/15/17 04:52 Neutrophils # 9.4 K/mcL (1.6-8.9) H 06/15/17 04:52 Monocytes # 1.4 K/mcL (0.0-1.3) H 06/15/17 04:52 PT 33.4 Seconds (9.4-12.1) H 06/15/17 15:11 BUN 22 mg/dL (7-20) H 06/15/17 04:52 BUN/Creatinine Ratio 32 (6-26) H 06/15/17 04:52 B-Natriuretic Peptide 304 pg/mL (0-100) H 06/15/17 11:06 H & H 06/15/17 Range/Units 04:52 Hgb 10.0 L (11.5-15.4) g/dL Hct 33.0 L (35.3-44.9) % All other labs normal. Consult Discharge Plan - Plan Referrals: NONE,PCP [Primary Care Provider] -
[2017-06-16 05:20] LABS: Basophils % 0.2 %; Eosinophils % 0.1 %; Hematocrit 31.2 % (35.3-44.9); Hemoglobin 9.8 g/dL (11.5-15.4); Lymphocytes # 1.5 K/mcL (0.6-4.6); Lymphocytes % 10.8 %; Mean Corpuscular HGB Conc 31.4 g/dL (31.6-35.5); Mean Corpuscular Hemoglobin 27.7 pg (28.0-33.3); Mean Corpuscular Volume 88.1 fL (83.0-100.0); Mean Platelet Volume 9.6 fL (9.4-12.4); Monocytes # 1.1 K/mcL (0.0-1.3); Monocytes % 7.8 %; Neutrophils # 10.8 K/mcL (1.6-8.9); Platelet Count 441 K/mcL (140-400); Red Blood Count 3.54 M/mcL (3.82-4.97); Red Cell Distribution Width 17.3 % (11.5-14.5); Segmented Neutrophils % 79.1 %
[2017-06-16 05:22] LABS: INR 1.9; Prothrombin Time 20.9 Seconds (9.4-12.1)
[2017-06-16 05:39] LABS: Alanine Aminotransferase 19 Units/L (0-55); Albumin/Globulin Ratio 0.5 (1.1-2.2); Alkaline Phosphatase 302 Units/L (38-126); Aspartate Amino Transferase 20 Units/L (5-34); BUN/Creatinine Ratio 26 (6-26); Bilirubin,Total 0.4 mg/dL (0.2-1.2); Blood Urea Nitrogen 22 mg/dL (7-20); Calcium 8.7 mg/dL (8.6-10.8); Carbon Dioxide 24 mEq/L (19-29); Chloride 103 mEq/L (98-109); Glucose 179 mg/dL (70-99); Osmolality,Calculated 296 (280-300); Potassium 4.3 mEq/L (3.5-4.5); Sodium 139 mEq/L (136-145); Total Protein 5.8 g/dL (6.0-8.3); eGFR For African Americans > 60 (> 60); eGFR For Non-African Americans > 60 (> 60)
[2017-06-16 05:40] LABS: Albumin 1.8 g/dL (3.5-5.0)
[2017-06-16] MEDS: Cefepime HCl 1,000 MG in Water for inj. (sterile) 10 ML IVP SCH ×2 (06:01→19:32)
--- NOTE | 2017-06-16 07:13 | Internal Med Progress Note ---
<Brandon Melo - Last Filed: 06/16/17 15:22> Date of Encounter: 06/16/17 Time of Encounter: 07:13 - Assessment and plan (1) Sepsis Current Visit: Yes Status: Acute Assessment and plan: 2 SIRS criteria with WBC 13.6, tachycardia HR 120, Sepsis secondary to left hip abscess vs. PNA Lactic acid 1.7 Patient was started on Doxycycline for 7 days on 06/08/17 due to concern for left femur drainage. Wound culture reveals gram negative rods Blood cultures show no growth to date Continue Cefepime, Levaquin, and Vancomycin. Qualifiers: Sepsis type: sepsis due to unspecified organism Qualified Code(s): A41.9 - Sepsis, unspecified organism (2) Wound infection after surgery Current Visit: Yes Status: Acute Assessment and plan: Patient discharged from [facility] April 2017 to an [facility] after an ORIF due to left femoral fracture. She was started on Doxycycline for 7 days on 06/08/17 due to concern for left femur drainage. CT left hip reveals status post ORIF of left intertrochanteric femur fracture with well-circumscribed fluid collection seen laterally as described above. These measure 3.2 x 4.4 x 8.1 cm and 2.3 x 1.7 x 3.0 cm respectively. Each collection contains a single locule of gas and findings are highly suspicious for abscesses as the patient is greater than 1 month postop. These collections lie along the surgical scar. There is surrounding soft tissue stranding. Wound culture reveals gram negative rods Continue Cefepime, Levaquin, and Vancomycin. FFP given INR decreased from 3.0 --> 1.7 Will give another unit FFP tonight and Vitamin K. Recheck INR in AM Anticipate I&D of left hip wound tomorrow per Dr. Romano if INR < 1.5 Qualifiers: Encounter type: initial encounter Qualified Code(s): T81.4XXA - Infection following a procedure, initial encounter (3) Healthcare-associated pneumonia Current Visit: Yes Status: Acute Assessment and plan: Patient was sent from the [facility] after she had an abnormal chest x-ray with low left lung volumes and possible plug or obstruction. CT scan showed bilateral small pleural effusions more on the left than the right with possible atelectases, could not exclude pneumonia WBC 13.1 --> 13.6 Blood cultures show to growth to date Continue Cefepime, Levaquin, and Vancomycin. Repeat CXR in AM (4) Acute encephalopathy Current Visit: Yes Status: Acute Assessment and plan: Patient A&O x0. Son is at bedside and reports patient is usually A&Ox3 at baseline and has been confused for the past 1 week at rehab. (5) Atrial fibrillation with RVR Current Visit: Yes Status: Chronic Assessment and plan: Titrate off Cardizem drip. Start Cardizem 30mg PO TID Continue home Sotalol Hold Xarelto due to surgery (6) CHF (congestive heart failure) Current Visit: Yes Status: Acute Assessment and plan: BNP 304, rales on exam, b/l pedal edema Strict I's and O's and daily weight, Continue Lasix IV if blood pressure allows Echocardiogram reveals A-fib with RVR, LV systolic function appears normal. Recommend repeat limited study with definity when heart rate normalizes Qualifiers: Congestive heart failure type: diastolic Congestive heart failure chronicity: acute on chronic Qualified Code(s): I50.33 - Acute on chronic diastolic (congestive) heart failure (7) Hypertension Current Visit: No Status: Chronic Assessment and plan: Continue home Sotalol Qualifiers: Hypertension type: essential hypertension Qualified Code(s): I10 - Essential (primary) hypertension (8) Hyperlipidemia Current Visit: No Status: Chronic Assessment and plan: Continue statin Qualifiers: Hyperlipidemia type: unspecified Qualified Code(s): E78.5 - Hyperlipidemia , unspecified (9) DM type 2 (diabetes mellitus, type 2) Current Visit: Yes Status: Chronic Assessment and plan: HGB a1c pending Discontinue pioglitazone permanently as it can provoke CHF Insulin sliding scale Qualifiers: Diabetes mellitus complication status: without complication Diabetes mellitus detention insulin use: without manager intermediate use Qualified Code(s): E11.9 - Type 2 diabetes mellitus without complications (10) Polymyalgia rheumatica Current Visit: Yes Status: Acute Assessment and plan: Continue chronic Prednisone 10mg PO daily (11) DVT prophylaxis Current Visit: No Status: Acute Assessment and plan: Resume Xarelto after surgery - Subjective Interval history: Patient seen and examined. She is A&Ox1 today and reports pain in lower abd and left hip. Bladder scan revealed 525cc and patient unable to void. Urine culture performed at [facility] prior to arrival show no growth to date. Anticipate I&D of left hip wound this afternoon per Dr. Romano. Son is at bedside and all questions are answered. - Constitutional Vitals: Temp Pulse Resp BP Pulse Ox 98.1 F 86 18 118/62 100 06/16/17 03:56 06/16/17 03:56 06/16/17 03:56 06/16/17 03:56 06/16/17 03:56 General appearance: Present: A&O X 0, mild distress, pleasant. Absent: answers questions appropriately - Head Head exam: Present: atraumatic, normal inspection, normocephalic - Eye Eye exam: Present: EOMI, conjuntiva pink, sclera anicteric - ENT ENT exam: Present: mucous membranes dry, normal oropharynx - Neck Neck exam general surgery: Present: normal inspection, supple. Absent: tenderness - Respiratory Respiratory exam: Present: decreased breath sounds (bibasilar). Absent: accessory muscle use, respiratory distress - Cardiovascular Cardiovascular exam: Present: RRR, +S1, +S2 - GI/Abdominal GI/Abdominal exam: Present: normal bowel sounds, soft, tenderness (diffuse TTP) . Absent: distended, guarding - Extremities Exam Extremities exam: Present: warm. Absent: pedal edema Additional comments: left hip wound with surrounding erythema, minimal serosanguinous drainage on dressing, no proximal streaking - Incison Incision: Present: red, swollen, erythema, serosanguinous Comments: left hip wound with surrounding erythema, minimal serosanguinous drainage on dressing, no proximal streaking - Neurological Exam Neurological exam: Present: altered, no focal deficits. Absent: alert, oriented X3, speech deficit - Psychiatric Additional comments: unable to assess - Skin Skin exam: Present: erythema, warm Additional comments: left hip wound with surrounding erythema, minimal serosanguinous drainage on dressing, no proximal streaking Internal Medicine: Result - Labs CBC & Chem 7: 06/16/17 05:04 06/16/17 05:04 Labs: Short CBC 06/16/17 Range/Units 05:04 WBC 13.6 H (4.3-11.1) K/mcL Hgb 9.8 L (11.5-15.4) g/dL Hct 31.2 L (35.3-44.9) % Plt Count 441 H (140-400) K/mcL Neutrophils # 10.8 H (1.6-8.9) K/mcL BMP 06/16/17 05:04 Sodium 139 Potassium 4.3 Chloride 103 Carbon Dioxide 24 BUN 22 H Creatinine 0.85 Glucose 179 H Calcium 8.7 Liver Function 06/16/17 Range/Units 05:04 Total Bilirubin 0.4 (0.2-1.2) mg/dL AST 20 (5-34) Units/L ALT 19 (0-55) Units/L Alkaline Phosphatase 302 H (38-126) Units/L Albumin 1.8 L (3.5-5.0) g/dL - ABG Interpretation ABG results: PT/INR, D-dimer PT 20.9 Seconds (9.4-12.1) H 06/16/17 05:04 - Pulse Oximetry Interpretation Digit-Finger Pulse Oximetry Readin (on 2L nc) Actions taken: other - Impressions Impressions Lower Extremity CT 06/15/17 13:07 IMPRESSION: 1. Status post ORIF of left intertrochanteric femur fracture with well-circumscribed fluid collection seen laterally as described above. These measure 3.2 x 4.4 x 8.1 cm and 2.3 x 1.7 x 3.0 cm respectively. Each collection contains a single locule of gas and findings are highly suspicious for abscesses as the patient is greater than 1 month postop. These collections lie along the surgical scar. There is surrounding soft tissue stranding. 2. There is suggestive of at least partial fusion at the fracture site with exuberant surrounding callus, however, greater than 50% of the fracture lines remain visible. 3. Heterotopic bone and likely avulsed lesser trochanteric fragment along the expected course of the iliopsoas tendon. 4. Moderate osteoarthritis of the left hip and nonspecific small left hip effusion. 5. Tricompartmental osteoarthritis of the left knee which is moderate to severe within the medial compartment. 6. Osteopenia. D/ / Kevin Cespedes MD / Kevin Cespedes MD Interpreting Provider: Kevin Cespedes MD Consult Discharge Plan - Plan Instructions: Heart Failure (DC), Atrial Fibrillation (DC), Urinary Tract Infection in Women (DC), Diabetes Mellitus Type 2 in Adults (DC), Sepsis (DC), Chronic Hypertension (DC), Precautions after Total Joint Replacement Surgery (DC ), Anemia (GEN), Pneumonia (DC), Joint Replacement Surgery, Manufacturing [employer] (GEN ) Referrals: NONE,PCP [Primary Care Provider] - <Dagoberto Plasencia - Last Filed: 06/16/17 18:28> Date of Encounter: 06/16/17 - Assessment and plan (1) Sepsis Current Visit: Yes Status: Suspected Qualifiers: Sepsis type: Escherichia coli Qualified Code(s): A41.51 - Sepsis due to Escherichia coli [E. coli] (2) Pneumonia Current Visit: Yes Status: Suspected Qualifiers: Pneumonia type: due to other aerobic Gram-negative bacteria Laterality: left Lung location: lower lobe of lung Qualified Code(s): J15.6 - Pneumonia due to other Gram-negative bacteria (3) Hematoma Current Visit: Yes Status: Acute (4) Atrial fibrillation Current Visit: Yes Status: Chronic Qualifiers: Atrial fibrillation type: chronic Qualified Code(s): I48.2 - Chronic atrial fibrillation (5) Hypertension Current Visit: No Status: Chronic Qualifiers: Hypertension type: essential hypertension Qualified Code(s): I10 - Essential (primary) hypertension (6) Diabetes mellitus Current Visit: No Status: Chronic Qualifiers: Diabetes mellitus type: type 2 Diabetes mellitus complication status: with unspecified complications Diabetes mellitus manager intermediate insulin use: without detention use Qualified Code(s): E11.8 - Type 2 diabetes mellitus with unspecified complications (7) CHF (congestive heart failure) Current Visit: Yes Status: Acute Qualifiers: Congestive heart failure type: diastolic Congestive heart failure chronicity: acute on chronic Qualified Code(s): I50.33 - Acute on chronic diastolic (congestive) heart failure (8) Polymyalgia rheumatica Current Visit: Yes Status: Acute (9) Anemia Current Visit: No Status: Chronic Qualifiers: Anemia type: other cause Other causes of anemia: chronic disease, other Qualified Code(s): D63.8 - Anemia in other chronic diseases classified elsewhere - Constitutional Vitals: Temp Pulse Resp BP Pulse Ox 97.8 F 99 15 115/61 99 06/16/17 16:00 06/16/17 16:00 06/16/17 16:00 06/16/17 16:00 06/16/17 16:00 Internal Medicine: Result - Labs CBC & Chem 7: 11/03/17 05:04 06/16/17 05:04 Labs: Short CBC 06/16/17 Range/Units 05:04 WBC 13.6 H (4.3-11.1) K/mcL Hgb 9.8 L (11.5-15.4) g/dL Hct 31.2 L (35.3-44.9) % Plt Count 441 H (140-400) K/mcL Neutrophils # 10.8 H (1.6-8.9) K/mcL BMP 06/16/17 05:04 Sodium 139 Potassium 4.3 Chloride 103 Carbon Dioxide 24 BUN 22 H Creatinine 0.85 Glucose 179 H Calcium 8.7 Liver Function 06/16/17 Range/Units 05:04 Total Bilirubin 0.4 (0.2-1.2) mg/dL AST 20 (5-34) Units/L ALT 19 (0-55) Units/L Alkaline Phosphatase 302 H (38-126) Units/L Albumin 1.8 L (3.5-5.0) g/dL Urine 06/15/17 Range/Units 14:40 Urine Color Yellow (Yellow) Urine Clarity Clear (Clear) Urine pH 5.5 (5.0-8.0) pH Units Ur Specific [place] > 1.030 H (1.010-1.025) Urine Protein Trace (Neg-Trace) mg/dL Urine Glucose (UA) Normal (Normal) mg/dL - ABG Interpretation ABG results: PT/INR, D-dimer PT 18.3 Seconds (9.4-12.1) H 06/16/17 14:14 - Impressions Impressions Echocardiogram 06/15/17 07:48 Impressions: Grossly, LV sysotlic function appears normal. However, it is difficult to evaluate while in atrial fibrillation with RVR. Recommend repeat Limited study with Definity when heart rates normalize. Indeterminate diastolic function. RV is not well visualized. Mild-moderate mitral regurgitation. Mild tricuspid regurgitation. Mild pulmonic regurgitation. No pulmonary hypertension by TR gradient. Left Ventricular Wall Motion: Rest Echo Findings All wall segments showed normal motion. Findings: Study Quality * Technically challenging - patient in atrial fibrillation with RVR. ECG Findings * Atrial fibrillation. Left Ventricle * Grossly, LV systolic function appears normal. * Indeterminate diastolic function. * LV size and wall thickness appear normal. Right Ventricle * RV is not well visualized. Left Atrium * Severely dilated left atrium. Right Atrium * Normal right atrial size. Aortic Valve * No aortic regurgitation. * Aortic valve not well visualized. * No aortic stenosis. Mitral Valve * Mild mitral annular calcification * Mildly sclerotic mitral valve leaflets. * Mild-moderate mitral regurgitation. * No mitral stenosis. Tricuspid Valve * Tricuspid valve not well visualized. * Mild tricuspid regurgitation. Pulmonic Valve * Pulmonic valve is not well visualized. * No pulmonic stenosis. * Mild pulmonic regurgitation. Pulmonary Artery * Pulmonary artery not well visualized. Aorta * Normally sized aortic root. Pericardium * There is no pericardial effusion present. Interatrial Septum * Interatrial septum not well evaluated. IVC * The IVC is not well evaluated. - Attending Attestation I examined this patient and my medical decision-making was reviewed with the Resident Physician on 06/16/17. I agree with the documented findings, disposition and treatment plan as described except to the extent set forth below. Ms Gunn has been admitted for presumptive pneumonia. She also has presumed infected hematoma L hip. She remains moderate to high risk due to potential for worsening clinical status. Ms Gunn is doing somewhat better. She still has a lot of pain. Donohue placed today - urine retention. No fever or chills now. Surgery to be tomorrow due to elevated INR. Exam Alert. Comfortable Mucus membranes dry Heart reg Lungs clear Abd some discomfort lower area - before donohue I/P 1. PNA 2. Infected hematoma Further diagnoses and plan as above.
--- NOTE | 2017-06-16 08:22 | Orthopedics Progress Note ---
Date of Encounter: 06/16/17 Time of Encounter: 08:18 - Assessment and Plan (1) Hematoma Current Visit: Yes Status: Acute This patient was readmitted for encephalopathy and possible pneumonia 6 weeks out from ORIF of the left proximal femur with medullary nailing. She also has atrial fibrillation and RVR currently on Xarelto. She is found to have a left proximal thigh fluid collection on CT scan associated with a small draining fistula presumed to be a hematoma related to being on Xarelto which is possibly secondarily infected. I did discuss treatment options with the patient as well as her son who is at the bedside and my recommendation is for operative incision , drainage, irrigation, and debridement of the fluid collection with intraoperative cultures. The risks discussed included but were not limited to stiffness, bleeding, infection, blood clots, damage to neurovascular structures , tendons, ligaments, and bone. Also discussed was the risk of continued symptoms and possible need for further procedures. I did discuss the anesthesia risks including stroke, heart attack, and . Her INR is currently 3.0 and not suitable for drainage at this point. I did have a discussion with the hospitalist who will stop the Xarelto and we will check an INR in the morning and possibly give FFP. She was placed on the operative schedule for tomorrow pending the results of her INR. I did recommend an attempted aspiration at the bedside in order to try and obtain fluid for culture. After verbal consent was obtained from the son I did sterilize an area just anterior to the area of the punctate fistula. I did insert an 18- gauge spinal needle into the subcutaneous tissue and attempted aspiration and only a small amount of dark thick blood could be aspirated into the syringe. I did push the needle further down to the femur and tried to aspirate more fluid but was unable to do so. A total of only about three quarters of a milliliter were able to be aspirated. This was sent for aerobic and anaerobic cultures. An ABG was applied to the proximal lateral thigh. The patient has been placed on cefepime and Vancomycin by the hospitalist. Subjective Interval history: S: Resting in bed, no new complaints. Persistent moderate confusion. O: A&O 2; oriented to person and place Afebrile and vital signs are stable; heart rate under better control with Cardizem Left thighs evaluated and unchanged. Small punctate fistula with a few drops of serosanguineous fluid. No significant pain with passive knee motion. Moderate left groin pain with passive hip motion. The patient grossly flexes and extends the ankle and toes. The foot is grossly sensate and well-perfused. A: Fluid collection in the left proximal thigh, presumed to be hematoma with likely secondary infection P: Plan on incision, drainage, irrigation, and debridement of the left thigh. INR is currently 1.9. Still not suitable for surgical drainage. We will repeat INR later today and I anticipate possible drainage later this afternoon if INR is appropriate and below 1.5. Surgical consent was obtained from the power of family law attorney this morning. Objective Vital signs: Vital Signs Temp Pulse Resp BP Pulse Ox 06/16/17 07:11 97.5 F L 84 15 105/59 100 06/16/17 03:56 98.1 F 86 18 118/62 100 06/15/17 22:10 120 111/63 06/15/17 22:08 98.1 F 99 18 111/63 100 06/15/17 19:30 110 106/65 06/15/17 19:15 103 110/34 06/15/17 19:00 104 127/58 06/15/17 18:45 112 100/77 06/15/17 18:33 121 111/83 06/15/17 18:03 127 116/78 06/15/17 16:34 97.5 F L 128 18 104/74 99 06/15/17 11:43 97.9 F 123 18 127/92 95 06/15/17 09:57 131/48 Intake and Output 06/15/17 06/16/17 06/16/17 23:59 07:59 15:59 Intake Total 758.3 / 758.3 0 / 0 Output Total 0 / 0 0 / 0 Balance 758.3 / 758.3 0 / 0 Intake: IV Fluids 308.3 / 308.3 Cardizem 125 MG In Dextrose 5% 48.3 / 48.3 100 ML @ 5 MG/HR 5 mls/hr IVC . Q24H [facility] Rx#:[id number] Maxipime 1,000 MG In Water for inj. (sterile) 10 ML @ 150 mls/ hr IVP Q12HR [facility] Rx#:[id number] Vancocin 1,250 MG In Dextrose 5 250 / 250 % 250 ML @ 167 mls/hr IVPB Q24H [facility] Rx#:[id number] Oral 450 / 450 0 / 0 Output: Urine 0 / 0 0 / 0 Other: # Urine Diapers 1 Blood Glucose* 187 - Labs CBC & BMP: 06/16/17 05:04 06/16/17 05:04 Labs: Abnormal lab results WBC 13.6 K/mcL (4.3-11.1) H 06/16/17 05:04 RBC 3.54 M/mcL (3.82-4.97) L 06/16/17 05:04 Hgb 9.8 g/dL (11.5-15.4) L 06/16/17 05:04 Hct 31.2 % (35.3-44.9) L 06/16/17 05:04 MCH 27.7 pg (28.0-33.3) L 06/16/17 05:04 MCHC 31.4 g/dL (31.6-35.5) L 06/16/17 05:04 RDW 17.3 % (11.5-14.5) H 06/16/17 05:04 Plt Count 441 K/mcL (140-400) H 06/16/17 05:04 Neutrophils # 10.8 K/mcL (1.6-8.9) H 06/16/17 05:04 PT 20.9 Seconds (9.4-12.1) H 06/16/17 05:04 BUN 22 mg/dL (7-20) H 06/16/17 05:04 Glucose 179 mg/dL (70-99) H 06/16/17 05:04 POC Glucose 142 (58-89) H 06/15/17 11:48 Alkaline Phosphatase 302 Units/L (38-126) H 06/16/17 05:04 B-Natriuretic Peptide 304 pg/mL (0-100) H 06/15/17 11:06 Serum Total Protein 5.8 g/dL (6.0-8.3) L 06/16/17 05:04 Albumin 1.8 g/dL (3.5-5.0) L 06/16/17 05:04 Globulin 4.0 g/dL (2.4-3.5) H 06/16/17 05:04 Albumin/Globulin Ratio 0.5 (1.1-2.2) L 06/16/17 05:04 Consult Discharge Plan - Plan Referrals: NONE,PCP [Primary Care Provider] -
[2017-06-16] MEDS: Insulin LISPRO 300 UNITS/3 ML VIAL SQ SCH ×4 (10:23→20:44)
[2017-06-16] MEDS: predniSONE 10 MG TABLET PO SCH (10:24)
[2017-06-16] MEDS ORDERED: 0.9 % Sodium Chloride 250 ML ONE ×2 (10:31→23:26)
[2017-06-16 14:50] LABS: INR 1.7; Prothrombin Time 18.3 Seconds (9.4-12.1)
[2017-06-16 15:32] LABS: Bilirubin,Urine Negative (Negative); Blood,Urine Negative (Negative); Clarity,Urine Clear (Clear); Color,Urine Yellow (Yellow); Glucose,Urine (UA) Normal (Normal); Ketones,Urine Negative (Negative); Leukocyte Esterase,Urine Negative (Negative); Nitrite,Urine Negative (Negative); PH,Urine 5.5 pH Units (5.0-8.0); Protein,Urine Trace mg/dL (Neg-Trace); Specific Gravity,Urine > 1.030 (1.010-1.025); Urobilinogen,Urine Normal (Normal)
[2017-06-16 15:33] LABS: Bacteria,Urine None Seen per hpf (None-Few); Hyaline Casts,Urine None Seen per lpf (None-Few); Squamous Epithelial Cell,Urine Many per lpf (None-Few)
[2017-06-16] MEDS: Vancomycin 1,250 MG in D5% in Water 250 ML IVPB SCH (17:13)
[2017-06-16] MEDS: *HR* Morphine 2 MG/ML SYRINGE IVP PRN ×2 (18:11→22:18)
[2017-06-16] MEDS: dilTIAZem HCl 100 MG in D5% in Water 50 ML IVC SCH (19:48)
--- NOTE | 2017-06-16 20:47 | Orthopedics Progress Note ---
Date of Encounter: 06/16/17 Time of Encounter: 20:45 - Assessment and Plan (1) Hematoma Current Visit: Yes Status: Acute This patient was readmitted for encephalopathy and possible pneumonia 6 weeks out from ORIF of the left proximal femur with medullary nailing. She also has atrial fibrillation and RVR currently on Xarelto. She is found to have a left proximal thigh fluid collection on CT scan associated with a small draining fistula presumed to be a hematoma related to being on Xarelto which is possibly secondarily infected. I did discuss treatment options with the patient as well as her son who is at the bedside and my recommendation is for operative incision , drainage, irrigation, and debridement of the fluid collection with intraoperative cultures. The risks discussed included but were not limited to stiffness, bleeding, infection, blood clots, damage to neurovascular structures , tendons, ligaments, and bone. Also discussed was the risk of continued symptoms and possible need for further procedures. I did discuss the anesthesia risks including stroke, heart attack, and . Her INR is currently 3.0 and not suitable for drainage at this point. I did have a discussion with the hospitalist who will stop the Xarelto and we will check an INR in the morning and possibly give FFP. She was placed on the operative schedule for tomorrow pending the results of her INR. I did recommend an attempted aspiration at the bedside in order to try and obtain fluid for culture. After verbal consent was obtained from the son I did sterilize an area just anterior to the area of the punctate fistula. I did insert an 18- gauge spinal needle into the subcutaneous tissue and attempted aspiration and only a small amount of dark thick blood could be aspirated into the syringe. I did push the needle further down to the femur and tried to aspirate more fluid but was unable to do so. A total of only about three quarters of a milliliter were able to be aspirated. This was sent for aerobic and anaerobic cultures. An ABG was applied to the proximal lateral thigh. The patient has been placed on cefepime and Vancomycin by the hospitalist. Subjective Interval history: S: Surgery was canceled earlier this evening due to a persistently elevated INR. She is resting in bed comfortably. She is actually much less confused. O: A&O 3 Afebrile and vital signs are stable; Left thighs evaluated and unchanged. Small punctate fistula with a few drops of serosanguineous fluid. No significant pain with passive knee motion. Moderate left groin pain with passive hip motion. The patient grossly flexes and extends the ankle and toes. The foot is grossly sensate and well-perfused. Cultures from the hematoma aspirate are growing gram-negative rods. A: Fluid collection in the left proximal thigh, presumed to be hematoma with secondary infection P: At this point the patient's INR is still persistently elevated, currently at 1.7. My recommendation is to allow this to improve further. The hospitalist has ordered another unit of FFP. We will recheck her INR in the morning. I have tentatively placed her on the operating room schedule for drainage of her left proximal thigh hematoma. Nothing by mouth after midnight. Objective Vital signs: Vital Signs Temp Pulse Resp BP Pulse Ox 06/16/17 19:49 98 06/16/17 18:44 97.7 F 70 17 116/66 97 06/16/17 16:00 97.8 F 99 15 115/61 99 06/16/17 13:10 98.2 F 89 18 116/48 06/16/17 11:57 98.2 F 85 15 119/79 100 06/16/17 11:00 98.2 F 82 18 114/59 06/16/17 10:45 97.4 F L 80 20 116/65 06/16/17 07:11 97.5 F L 84 15 105/59 100 06/16/17 03:56 98.1 F 86 18 118/62 100 06/15/17 22:10 120 111/63 06/15/17 22:08 98.1 F 99 18 111/63 100 Intake and Output 06/16/17 06/16/17 06/16/17 07:59 15:59 23:59 Intake Total 387 / 387 380 / 380 Output Total 0 / 0 0 / 0 575 / 575 Balance 387 / 387 -195 / -195 Intake: IV Fluids 100 / 100 260 / 260 Cardizem 125 MG In Dextrose 5% 100 / 100 100 ML @ 5 MG/HR 5 mls/hr IVC . Q24H [facility] Rx#:[id number] Maxipime 1,000 MG In Water for inj. (sterile) 10 ML @ 150 mls/ hr IVP Q12HR [facility] Rx#:[id number] Vancocin 1,250 MG In Dextrose 5 250 / 250 % 250 ML @ 167 mls/hr IVPB Q[facility]H [facility] Rx#:[id number] Oral 0 / 0 0 / 0 120 / 120 Blood Product 287 / 287 Plasma Unit [id number] 287 / 287 Output: Urine 0 / 0 0 / 0 Catheter 575 / 575 Other: Meal Lunch Dinner Percent of Meal Consumed 0% 90% # Urine Diapers 1 Weight 77.8 kg Blood Glucose* 120 253 Patient Weight 06/16/17 23:59 Weight 77.8 kg - Labs CBC & BMP: 06/16/17 05:04 06/16/17 05:04 Labs: Abnormal lab results WBC 13.6 K/mcL (4.3-11.1) H 06/16/17 05:04 RBC 3.54 M/mcL (3.82-4.97) L 06/16/17 05:04 Hgb 9.8 g/dL (11.5-15.4) L 06/16/17 05:04 Hct 31.2 % (35.3-44.9) L 06/16/17 05:04 MCH 27.7 pg (28.0-33.3) L 06/16/17 05:04 MCHC 31.4 g/dL (31.6-35.5) L 06/16/17 05:04 RDW 17.3 % (11.5-14.5) H 06/16/17 05:04 Plt Count 441 K/mcL (140-400) H 06/16/17 05:04 Neutrophils # 10.8 K/mcL (1.6-8.9) H 06/16/17 05:04 PT 18.3 Seconds (9.4-12.1) H 06/16/17 14:14 BUN 22 mg/dL (7-20) H 06/16/17 05:04 Glucose 179 mg/dL (70-99) H 06/16/17 05:04 POC Glucose 187 (58-89) H 06/15/17 21:58 Alkaline Phosphatase 302 Units/L (38-126) H 06/16/17 05:04 B-Natriuretic Peptide 304 pg/mL (0-100) H 06/15/17 11:06 Serum Total Protein 5.8 g/dL (6.0-8.3) L 06/16/17 05:04 Albumin 1.8 g/dL (3.5-5.0) L 06/16/17 05:04 Globulin 4.0 g/dL (2.4-3.5) H 06/16/17 05:04 Albumin/Globulin Ratio 0.5 (1.1-2.2) L 06/16/17 05:04 Ur Specific [place] > 1.030 (1.010-1.025) H 06/15/17 14:40 Urine Microscopic RBC 3-5 per hpf (0-3) H 06/15/17 14:40 Urine Microscopic WBC 3-5 per hpf (0-3) H 06/15/17 14:40 Ur Squamous Epith Cells Many per lpf (None-Few) H 06/15/17 14:40 Consult Discharge Plan - Plan Instructions: Heart Failure (DC), Atrial Fibrillation (DC), Urinary Tract Infection in Women (DC), Diabetes Mellitus Type 2 in Adults (DC), Sepsis (DC), Chronic Hypertension (DC), Precautions after Total Joint Replacement Surgery (DC ), Anemia (GEN), Pneumonia (DC), Joint Replacement Surgery, Product Expert (GEN ) Referrals: NONE,PCP [Primary Care Provider] -
[2017-06-16] MEDS ORDERED: *HR* Phytonadione 5 MG TABLET PO ONE (22:00)
[2017-06-17] MEDS: Cefepime HCl 1,000 MG in Water for inj. (sterile) 10 ML IVP SCH ×2 (05:50→18:43)
[2017-06-17 06:23] LABS: Basophils % 0.2 %; Eosinophils # 0.1 K/mcL (0.0-0.6); Eosinophils % 0.5 %; Hemoglobin 8.6 g/dL (11.5-15.4); Lymphocytes # 1.5 K/mcL (0.6-4.6); Mean Corpuscular HGB Conc 30.7 g/dL (31.6-35.5); Mean Corpuscular Hemoglobin 27.6 pg (28.0-33.3); Mean Corpuscular Volume 89.7 fL (83.0-100.0); Mean Platelet Volume 9.5 fL (9.4-12.4); Monocytes # 0.9 K/mcL (0.0-1.3); Monocytes % 8.4 %; Neutrophils # 7.4 K/mcL (1.6-8.9); Platelet Count 416 K/mcL (140-400); Red Blood Count 3.12 M/mcL (3.82-4.97); Red Cell Distribution Width 17.2 % (11.5-14.5); Segmented Neutrophils % 73.9 %
[2017-06-17 06:32] LABS: INR 1.4; Prothrombin Time 15.6 Seconds (9.4-12.1)
[2017-06-17 06:33] LABS: Hemoglobin A1C 5.3 %
[2017-06-17 06:40] LABS: Alanine Aminotransferase 23 Units/L (0-55); Albumin/Globulin Ratio 0.5 (1.1-2.2); Alkaline Phosphatase 252 Units/L (38-126); Aspartate Amino Transferase 27 Units/L (5-34); BUN/Creatinine Ratio 21 (6-26); Bilirubin,Total 0.5 mg/dL (0.2-1.2); Blood Urea Nitrogen 16 mg/dL (7-20); Calcium 8.4 mg/dL (8.6-10.8); Carbon Dioxide 28 mEq/L (19-29); Chloride 103 mEq/L (98-109); Globulin 3.9 g/dL (2.4-3.5); Glucose 104 mg/dL (70-99); Osmolality,Calculated 291 (280-300); Potassium 3.7 mEq/L (3.5-4.5); Sodium 140 mEq/L (136-145); Total Protein 5.9 g/dL (6.0-8.3); eGFR For African Americans > 60 (> 60); eGFR For Non-African Americans > 60 (> 60)
[2017-06-17] MEDS: predniSONE 10 MG TABLET PO SCH (07:46)
[2017-06-17] MEDS: Insulin LISPRO 300 UNITS/3 ML VIAL SQ SCH ×4 (07:56→21:28)
--- NOTE | 2017-06-17 08:51 | Internal Med Progress Note ---
Date of Encounter: 06/17/17 Time of Encounter: 08:28 - Assessment and plan (1) Sepsis Current Visit: Yes Status: Suspected Assessment and plan: Sepsis related to pseudomonas infection in hematoma of L hip. Heart rate now better controlled. BP stable. On IV Cefipime now. To go to OR today. Qualifiers: Sepsis type: Pseudomonas Qualified Code(s): A41.52 - Sepsis due to Pseudomonas (2) Pneumonia Current Visit: Yes Status: Suspected Assessment and plan: Will complete course of Cefipime. Qualifiers: Pneumonia type: due to other aerobic Gram-negative bacteria Laterality: left Lung location: lower lobe of lung Qualified Code(s): J15.6 - Pneumonia due to other Gram-negative bacteria (3) Hematoma Current Visit: Yes Status: Acute Assessment and plan: INR 1.4 today. She is to go to surgery this AM for I&D and washout of hip area. (4) Atrial fibrillation Current Visit: Yes Status: Chronic Assessment and plan: On PO Cardizem at this time. Heart rate better controlled and off drip. Will switch to long acting Cardizem tomorrow. Restart Xarelto when OK with surgery. Qualifiers: Atrial fibrillation type: chronic Qualified Code(s): I48.2 - Chronic atrial fibrillation (5) Hypertension Current Visit: No Status: Chronic Assessment and plan: Controlled at this time. Qualifiers: Hypertension type: essential hypertension Qualified Code(s): I10 - Essential (primary) hypertension (6) Diabetes mellitus Current Visit: No Status: Chronic Assessment and plan: Continue accuchecks and coverage. 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 Volume status is stable. Continue diuresis but may decrease dose today. Qualifiers: Congestive heart failure type: diastolic Congestive heart failure chronicity: acute on chronic Qualified Code(s): I50.33 - Acute on chronic diastolic (congestive) heart failure (8) Polymyalgia rheumatica Current Visit: Yes Status: Acute Assessment and plan: Continue chronic Prednisone 10mg PO daily (9) Anemia Current Visit: No Status: Chronic Assessment and plan: Monitoring H/H. Appears at baseline at this time. Qualifiers: Anemia type: other cause Other causes of anemia: chronic disease, other Qualified Code(s): D63.8 - Anemia in other chronic diseases classified elsewhere - Subjective Interval history: Ms. Gunn is currently admitted for sepsis related to presumed pneumonia and infected hematoma L hip. She remains moderate to high risk due to potential for worsening clinical and respiratory status. Ms Gunn is resting at this time. Her son is at bedside and says she seems better today. She knew her birthdate this morning. Pain seems to be controlled at this time. No fever or chills. To have surgery on hip today. - Constitutional Vitals: Temp Pulse Resp BP Pulse Ox 97.7 F 79 18 118/62 97 06/17/17 07:40 06/17/17 07:40 06/17/17 07:40 06/17/17 07:40 06/17/17 07:57 General appearance: Present: A&O X 1. Absent: answers questions appropriately - Head Head exam: Present: normocephalic - Eye Eye exam: Present: conjuntiva pink - ENT ENT exam: Present: mucous membranes dry - Respiratory Respiratory exam: Present: decreased breath sounds, CTAB. Absent: rales, rhonchi, wheezes - Cardiovascular Cardiovascular exam: Present: irregular rhythm. Absent: tachycardia - GI/Abdominal GI/Abdominal exam: Present: soft. Absent: tenderness - Extremities Exam Extremities exam: Present: tenderness, warm Additional comments: No overt drainage. - Neurological Exam Neurological exam: Present: alert, no focal deficits - Skin Skin exam: Present: warm. Absent: rash Internal Medicine: Result - Labs CBC & Chem 7: 06/17/17 06:11 06/17/17 06:11 Labs: Short CBC 06/17/17 Range/Units 06:11 WBC 10.1 (4.3-11.1) K/mcL Hgb 8.6 L (11.5-15.4) g/dL Hct 28.0 L (35.3-44.9) % Plt Count 416 H (140-400) K/mcL Neutrophils # 7.4 (1.6-8.9) K/mcL BMP 06/17/17 06:11 Sodium 140 Potassium 3.7 Chloride 103 Carbon Dioxide 28 BUN 16 Creatinine 0.77 Glucose 104 H Calcium 8.4 L Liver Function 06/17/17 Range/Units 06:11 Total Bilirubin 0.5 (0.2-1.2) mg/dL AST 27 (5-34) Units/L ALT 23 (0-55) Units/L Alkaline Phosphatase 252 H (38-126) Units/L Albumin 2.0 L (3.5-5.0) g/dL Urine 06/15/17 Range/Units 14:40 Urine Color Yellow (Yellow) Urine Clarity Clear (Clear) Urine pH 5.5 (5.0-8.0) pH Units Ur Specific [place] > 1.030 H (1.010-1.025) Urine Protein Trace (Neg-Trace) mg/dL Urine Glucose (UA) Normal (Normal) mg/dL - ABG Interpretation ABG results: PT/INR, D-dimer PT 15.6 Seconds (9.4-12.1) H 06/17/17 06:11 - Impressions Impressions Echocardiogram 06/15/17 07:48 Impressions: Grossly, LV sysotlic function appears normal. However, it is difficult to evaluate while in atrial fibrillation with RVR. Recommend repeat Limited study with Definity when heart rates normalize. Indeterminate diastolic function. RV is not well visualized. Mild-moderate mitral regurgitation. Mild tricuspid regurgitation. Mild pulmonic regurgitation. No pulmonary hypertension by TR gradient. Left Ventricular Wall Motion: Rest Echo Findings All wall segments showed normal motion. Findings: Study Quality * Technically challenging - patient in atrial fibrillation with RVR. ECG Findings * Atrial fibrillation. Left Ventricle * Grossly, LV systolic function appears normal. * Indeterminate diastolic function. * LV size and wall thickness appear normal. Right Ventricle * RV is not well visualized. Left Atrium * Severely dilated left atrium. Right Atrium * Normal right atrial size. Aortic Valve * No aortic regurgitation. * Aortic valve not well visualized. * No aortic stenosis. Mitral Valve * Mild mitral annular calcification * Mildly sclerotic mitral valve leaflets. * Mild-moderate mitral regurgitation. * No mitral stenosis. Tricuspid Valve * Tricuspid valve not well visualized. * Mild tricuspid regurgitation. Pulmonic Valve * Pulmonic valve is not well visualized. * No pulmonic stenosis. * Mild pulmonic regurgitation. Pulmonary Artery * Pulmonary artery not well visualized. Aorta * Normally sized aortic root. Pericardium * There is no pericardial effusion present. Interatrial Septum * Interatrial septum not well evaluated. IVC * The IVC is not well evaluated. Chest X-Ray 06/17/17 04:00 IMPRESSION: Improvement in previously visualized left pleural effusion and left basilar opacity. D/ / Ella Dorado MD / Ella Dorado MD Interpreting Provider: Ella Dorado MD Consult Discharge Plan - Plan Instructions: Heart Failure (DC), Atrial Fibrillation (DC), Urinary Tract Infection in Women (DC), Diabetes Mellitus Type 2 in Adults (DC), Sepsis (DC), Chronic Hypertension (DC), Precautions after Total Joint Replacement Surgery (DC ), Anemia (GEN), Pneumonia (DC), Joint Replacement Surgery, Signal Repairer (GEN ) Referrals: NONE,PCP [Primary Care Provider] -
[2017-06-17] MEDS ORDERED: *HR* Rivaroxaban 15 MG TABLET PO SCH (09:00)
[2017-06-17] MEDS ORDERED: Levofloxacin 750 MG/150 ML 750 MG/150 ML BAG IVPB SCH (09:00)
--- NOTE | 2017-06-17 10:50 | Orthopedics Progress Note ---
Date of Encounter: 06/17/17 Time of Encounter: 10:47 - Assessment and Plan (1) Hematoma Current Visit: Yes Status: Acute This patient was readmitted for encephalopathy and possible pneumonia 6 weeks out from ORIF of the left proximal femur with medullary nailing. She also has atrial fibrillation and RVR currently on Xarelto. She is found to have a left proximal thigh fluid collection on CT scan associated with a small draining fistula presumed to be a hematoma related to being on Xarelto which is possibly secondarily infected. I did discuss treatment options with the patient as well as her son who is at the bedside and my recommendation is for operative incision , drainage, irrigation, and debridement of the fluid collection with intraoperative cultures. The risks discussed included but were not limited to stiffness, bleeding, infection, blood clots, damage to neurovascular structures , tendons, ligaments, and bone. Also discussed was the risk of continued symptoms and possible need for further procedures. I did discuss the anesthesia risks including stroke, heart attack, and . Her INR is currently 3.0 and not suitable for drainage at this point. I did have a discussion with the hospitalist who will stop the Xarelto and we will check an INR in the morning and possibly give FFP. She was placed on the operative schedule for tomorrow pending the results of her INR. I did recommend an attempted aspiration at the bedside in order to try and obtain fluid for culture. After verbal consent was obtained from the son I did sterilize an area just anterior to the area of the punctate fistula. I did insert an 18- gauge spinal needle into the subcutaneous tissue and attempted aspiration and only a small amount of dark thick blood could be aspirated into the syringe. I did push the needle further down to the femur and tried to aspirate more fluid but was unable to do so. A total of only about three quarters of a milliliter were able to be aspirated. This was sent for aerobic and anaerobic cultures. An ABG was applied to the proximal lateral thigh. The patient has been placed on cefepime and Vancomycin by the hospitalist. Subjective Interval history: S: Resting in bed comfortably. Improve pain to the left hip. O: A&O 3 Afebrile and vital signs are stable; Left thigh evaluated and unchanged. Small punctate fistula with a few drops of serosanguineous fluid. No significant pain with passive knee motion. Moderate left groin pain with passive hip motion. The patient grossly flexes and extends the ankle and toes. The foot is grossly sensate and well-perfused. Cultures from the hematoma aspirate are growing pseudomonas aeruginosa, sensitive to cefepime A: Fluid collection in the left proximal thigh, hematoma with secondary infection due to pseudomonas aeruginosa P: The patient's INR has improved to 1.4. We will plan on proceeding to the operating room today for wash out of the hematoma Period the patient is currently on cefepime and is improving clinically Objective Vital signs: Vital Signs Temp Pulse Resp BP Pulse Ox 06/17/17 07:57 97 06/17/17 07:40 97.7 F 79 18 118/62 97 06/17/17 03:29 97.6 F 99 17 109/57 100 06/17/17 02:24 97.9 F 84 16 115/94 100 06/17/17 00:15 97.8 F 92 16 113/63 100 06/16/17 23:53 97.9 F 82 18 112/57 100 06/16/17 19:49 98 06/16/17 18:44 97.7 F 70 17 116/66 97 06/16/17 16:00 97.8 F 99 15 115/61 99 06/16/17 13:10 98.2 F 89 18 116/48 06/16/17 11:57 98.2 F 85 15 119/79 100 06/16/17 11:00 98.2 F 82 18 114/59 Intake and Output 06/16/17 06/17/17 06/17/17 23:59 07:59 15:59 Intake Total 480 / 480 250 / 250 Output Total 775 / 775 350 / 350 Balance -295 / -295 -100 / -100 Intake: IV Fluids 260 / 260 Maxipime 1,000 MG In Water for inj. (sterile) 10 ML @ 150 mls/ hr IVP Q12HR [facility] Rx#:[id number] Vancocin 1,250 MG In Dextrose 5 250 / 250 % 250 ML @ 167 mls/hr IVPB Q24H [facility] Rx#:[id number] Oral 220 / 220 0 / 0 Blood Product 0 / 0 250 / 250 Plasma Unit [id number] 0 / 0 250 / 250 Output: Catheter 775 / 775 350 / 350 Other: Meal Dinner Percent of Meal Consumed 90% Weight 78.9 kg Blood Glucose* 253 90 Patient Weight 06/17/17 23:59 Weight 78.9 kg - Labs CBC & BMP: 06/17/17 06:11 06/17/17 06:11 Labs: Abnormal lab results RBC 3.12 M/mcL (3.82-4.97) L 06/17/17 06:11 Hgb 8.6 g/dL (11.5-15.4) L 06/17/17 06:11 Hct 28.0 % (35.3-44.9) L 06/17/17 06:11 MCH 27.6 pg (28.0-33.3) L 06/17/17 06:11 MCHC 30.7 g/dL (31.6-35.5) L 06/17/17 06:11 RDW 17.2 % (11.5-14.5) H 06/17/17 06:11 Plt Count 416 K/mcL (140-400) H 06/17/17 06:11 PT 15.6 Seconds (9.4-12.1) H 06/17/17 06:11 Glucose 104 mg/dL (70-99) H 06/17/17 06:11 POC Glucose 179 (58-89) H 06/16/17 16:26 Calcium 8.4 mg/dL (8.6-10.8) L 06/17/17 06:11 Alkaline Phosphatase 252 Units/L (38-126) H 06/17/17 06:11 B-Natriuretic Peptide 304 pg/mL (0-100) H 06/15/17 11:06 Serum Total Protein 5.9 g/dL (6.0-8.3) L 06/17/17 06:11 Albumin 2.0 g/dL (3.5-5.0) L 06/17/17 06:11 Globulin 3.9 g/dL (2.4-3.5) H 06/17/17 06:11 Albumin/Globulin Ratio 0.5 (1.1-2.2) L 06/17/17 06:11 Ur Specific [place] > 1.030 (1.010-1.025) H 06/15/17 14:40 Urine Microscopic RBC 3-5 per hpf (0-3) H 06/15/17 14:40 Urine Microscopic WBC 3-5 per hpf (0-3) H 06/15/17 14:40 Ur Squamous Epith Cells Many per lpf (None-Few) H 06/15/17 14:40 Consult Discharge Plan - Plan Instructions: Heart Failure (DC), Atrial Fibrillation (DC), Urinary Tract Infection in Women (DC), Diabetes Mellitus Type 2 in Adults (DC), Sepsis (DC), Chronic Hypertension (DC), Precautions after Total Joint Replacement Surgery (DC ), Anemia (GEN), Pneumonia (DC), Joint Replacement Surgery, Nanny Caregiver (GEN ) Referrals: NONE,PCP [Primary Care Provider] -
[2017-06-17] MEDS: dilTIAZem HCl 100 MG in D5% in Water 50 ML IVC SCH (11:57)
[2017-06-17] MEDS ORDERED: *HR* FentaNYL (PF) 100 MCG/2 ML VIAL ONE ×2 (12:56→16:32)
[2017-06-17] MEDS ORDERED: *HR* Etomidate 40 MG/20 ML VIAL IVP ONE (12:56)
[2017-06-17] MEDS ORDERED: Lidocaine -MPF 2% 2 ML VIAL ONE (12:56)
[2017-06-17] MEDS ORDERED: Ringers Solution, Lactated 1,000 ML ONE (13:12)
[2017-06-17] MEDS ORDERED: *HR* HYDROmorphone 2 MG/ML SYRINGE ONE (13:17)
--- NOTE | 2017-06-17 13:46 | Anesthesia Evaluation PreOp ---
Date of Encounter: 06/17/17 Time of Encounter: 15:20 - Past History Planned Operation: I&D L-Hip Cardiac History: CHF, HTN, Hyperlipidemia (maintained on Atorvastatin), Arrhythmia (AFib w/RVR this admission. 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 Hx Anxiety/ Depression maintained on Cymbalta) Other Medical History: Bleeding (Hx of DVTs), Diabetes Type II (maintained on Metformin, Acto), Thyroid (Hypothyroidism maintained on Synthroid), GERD ( maintained on Omeprazole), Other (L-HI) Anesthesia History: No Prior Anesthetic Complications, Past Anesthesia ( Hysterectomy, L-Hip IM Nail 05/03/2017, Back surgery approx 2013), Problems ( Slow to wake up, had to remain intubated for hours after back surgery) Alcohol Use: none Drug use: none Medications and Allergies Atorvastatin Calcium [Lipitor] 20 mg PO DAILY 05/02/17 [History] Calcium Carbonate/Vitamin D3 [Oyster Shell Calcium-Vit D Tab] 1 tab PO DAILY [History] Cholecalciferol (Vitamin D3) [Vitamin D3] 1,000 unit PO DAILY 05/02/17 [History] Cyanocobalamin (Vitamin B-12) [Vitamin B-12] 1,000 mcg SL DAILY 05/02/17 [ History] Duloxetine HCl [Cymbalta] 60 mg PO DAILY 05/02/17 [History] Folic Acid 1 mg PO DAILY 05/02/17 [History] Levothyroxine [Synthroid] 100 mcg PO DAILY 05/02/17 [History] Magnesium Oxide [Magnesium] 400 mg PO DAILY 05/02/17 [History] Metformin HCl [Metformin HCl ER] 1,000 mg PO BID 05/02/17 [History] Omeprazole 20 mg PO DAILY 05/02/17 [History] Pioglitazone HCl [Actos] 30 mg PO DAILY 05/02/17 [History] Potassium Chloride [K-Tab ER] 20 meq PO DAILY 05/02/17 [History] Rivaroxaban [Xarelto] 20 mg PO DAILY 05/02/17 [History] Sotalol [Betapace] 80 mg PO Q12HR 05/02/17 [History] Docusate [Colace] 100 mg PO BID PRN capsule 05/08/17 [Rx] HYDROcodone/Acet 10/325 mg [[place] 10-325 mg] 1 tab PO Q4H PRN #20 tablet [Rx] Methocarbamol [Robaxin] 750 mg PO Q8HR #30 tablet 05/09/17 [Rx] 3 Allergy/AdvReac Type Severity Reaction Status Date / Time amiodarone Allergy Nausea Verified 05/02/17 23:35 Penicillins Allergy Hives Verified 05/02/17 23:35 Pneumococcal Vaccine Allergy See Verified 05/02/17 23:35 Comments Streptomycin Allergy Anaphylaxis Verified 05/02/17 23:35 Tetanus Vaccines and Toxoid Allergy See Verified 05/02/17 23:35 Comments - Meds/Allergy Pre-op Review Medications Reviewed: Yes Allergies Reviewed: Yes Beta Blockers on Current Med List: Yes (Sotalol) If Beta Blockers taken, Date/Time (Last Dose taken): 06/17/2017 @ 0550 Anesthesia Results - Labs 06/17/17 06:11 06/17/17 06:11 Laboratory Results WBC 10.1 K/mcL (4.3-11.1) 06/17/17 06:11 RBC 3.12 M/mcL (3.82-4.97) L 06/17/17 06:11 Hgb 8.6 g/dL (11.5-15.4) L 06/17/17 06:11 Hct 28.0 % (35.3-44.9) L 06/17/17 06:11 MCV 89.7 fL (83.0-100.0) 06/17/17 06:11 MCH 27.6 pg (28.0-33.3) L 06/17/17 06:11 MCHC 30.7 g/dL (31.6-35.5) L 06/17/17 06:11 RDW 17.2 % (11.5-14.5) H 06/17/17 06:11 Plt Count 416 K/mcL (140-400) H 06/17/17 06:11 MPV 9.5 fL (9.4-12.4) 06/17/17 06:11 Immature Gran % 2.0 % (0-4) 06/17/17 06:11 Seg Neutrophils % 73.9 % 06/17/17 06:11 Lymphocytes % 15.0 % 06/17/17 06:11 Monocytes % 8.4 % 06/17/17 06:11 Eosinophils % 0.5 % 06/17/17 06:11 Basophils % 0.2 % 06/17/17 06:11 Neutrophils # 7.4 K/mcL (1.6-8.9) 06/17/17 06:11 Lymphocytes # 1.5 K/mcL (0.6-4.6) 06/17/17 06:11 Monocytes # 0.9 K/mcL (0.0-1.3) 06/17/17 06:11 Eosinophils # 0.1 K/mcL (0.0-0.6) 06/17/17 06:11 Basophils # 0.0 K/mcL (0.0-0.2) 06/17/17 06:11 PT 15.6 Seconds (9.4-12.1) H 06/17/17 06:11 INR 1.4 06/17/17 06:11 Sodium 140 mEq/L (136-145) 06/17/17 06:11 Potassium 3.7 mEq/L (3.5-4.5) 06/17/17 06:11 Chloride 103 mEq/L (98-109) 06/17/17 06:11 Carbon Dioxide 28 mEq/L (19-29) 06/17/17 06:11 BUN 16 mg/dL (7-20) 06/17/17 06:11 Creatinine 0.77 mg/dL (0.57-1.11) 06/17/17 06:11 Est GFR ( Amer) > 60 (> 60) 06/17/17 06:11 Est GFR (Non-Af Amer) > 60 (> 60) 06/17/17 06:11 BUN/Creatinine Ratio 21 (6-26) 06/17/17 06:11 Glucose 104 mg/dL (70-99) H 06/17/17 06:11 POC Glucose 179 (58-89) H 06/16/17 16:26 Est Mean Plasma Glucose 105 mg/dl 06/17/17 06:11 Hemoglobin A1c 5.3 % (-5.6) 06/17/17 06:11 Calculated Osmolality 291 (280-300) 06/17/17 06:11 Lactic Acid 1.7 mmol/L (0.5-2.2) 06/15/17 04:52 Calcium 8.4 mg/dL (8.6-10.8) L 06/17/17 06:11 Total Bilirubin 0.5 mg/dL (0.2-1.2) 06/17/17 06:11 AST 27 Units/L (5-34) 06/17/17 06:11 ALT 23 Units/L (0-55) 06/17/17 06:11 Alkaline Phosphatase 252 Units/L (38-126) H 06/17/17 06:11 B-Natriuretic Peptide 304 pg/mL (0-100) H 06/15/17 11:06 Serum Total Protein 5.9 g/dL (6.0-8.3) L 06/17/17 06:11 Albumin 2.0 g/dL (3.5-5.0) L 06/17/17 06:11 Globulin 3.9 g/dL (2.4-3.5) H 06/17/17 06:11 Albumin/Globulin Ratio 0.5 (1.1-2.2) L 06/17/17 06:11 Beta-Hydroxybutyric Acd 0.23 mmol/L (0.02-0.27) 06/15/17 04:52 Urine Color Yellow (Yellow) 06/15/17 14:40 Urine Clarity Clear (Clear) 06/15/17 14:40 Urine pH 5.5 pH Units (5.0-8.0) 06/15/17 14:40 Ur Specific [place] > 1.030 (1.010-1.025) H 06/15/17 14:40 Urine Protein Trace mg/dL (Neg-Trace) 06/15/17 14:40 Urine Glucose (UA) Normal mg/dL (Normal) 06/15/17 14:40 Urine Ketones Negative mg/dL (Negative) 06/15/17 14:40 Urine Blood Negative (Negative) 06/15/17 14:40 Urine Nitrite Negative (Negative) 06/15/17 14:40 Urine Bilirubin Negative (Negative) 06/15/17 14:40 Urine Urobilinogen Normal mg/dL (Normal) 06/15/17 14:40 Ur Leukocyte Esterase Negative (Negative) 06/15/17 14:40 Urine Microscopic RBC 3-5 per hpf (0-3) H 06/15/17 14:40 Urine Microscopic WBC 3-5 per hpf (0-3) H 06/15/17 14:40 Ur Squamous Epith Cells Many per lpf (None-Few) H 06/15/17 14:40 Urine Bacteria None Seen per hpf (None-Few) 06/15/17 14:40 Hyaline Casts None Seen per lpf (None-Few) 06/15/17 14:40 Ur Culture Indicated? NO (NO) 06/15/17 14:40 Blood Type A POSITIVE 06/16/17 05:04 Antibody Screen POSITIVE 06/16/17 05:04 Antibody Identification Known Anti-K 06/16/17 05:04 Impressions Echocardiogram 06/15/17 07:48 Impressions: Grossly, LV sysotlic function appears normal. However, it is difficult to evaluate while in atrial fibrillation with RVR. Recommend repeat Limited study with Definity when heart rates normalize. Indeterminate diastolic function. RV is not well visualized. Mild-moderate mitral regurgitation. Mild tricuspid regurgitation. Mild pulmonic regurgitation. No pulmonary hypertension by TR gradient. Left Ventricular Wall Motion: Rest Echo Findings All wall segments showed normal motion. Findings: Study Quality * Technically challenging - patient in atrial fibrillation with RVR. ECG Findings * Atrial fibrillation. Left Ventricle * Grossly, LV systolic function appears normal. * Indeterminate diastolic function. * LV size and wall thickness appear normal. Right Ventricle * RV is not well visualized. Left Atrium * Severely dilated left atrium. Right Atrium * Normal right atrial size. Aortic Valve * No aortic regurgitation. * Aortic valve not well visualized. * No aortic stenosis. Mitral Valve * Mild mitral annular calcification * Mildly sclerotic mitral valve leaflets. * Mild-moderate mitral regurgitation. * No mitral stenosis. Tricuspid Valve * Tricuspid valve not well visualized. * Mild tricuspid regurgitation. Pulmonic Valve * Pulmonic valve is not well visualized. * No pulmonic stenosis. * Mild pulmonic regurgitation. Pulmonary Artery * Pulmonary artery not well visualized. Aorta * Normally sized aortic root. Pericardium * There is no pericardial effusion present. Interatrial Septum * Interatrial septum not well evaluated. IVC * The IVC is not well evaluated. Lower Extremity CT 06/15/17 13:07 IMPRESSION: 1. Status post ORIF of left intertrochanteric femur fracture with well-circumscribed fluid collection seen laterally as described above. These measure 3.2 x 4.4 x 8.1 cm and 2.3 x 1.7 x 3.0 cm respectively. Each collection contains a single locule of gas and findings are highly suspicious for abscesses as the patient is greater than 1 month postop. These collections lie along the surgical scar. There is surrounding soft tissue stranding. 2. There is suggestive of at least partial fusion at the fracture site with exuberant surrounding callus, however, greater than 50% of the fracture lines remain visible. 3. Heterotopic bone and likely avulsed lesser trochanteric fragment along the expected course of the iliopsoas tendon. 4. Moderate osteoarthritis of the left hip and nonspecific small left hip effusion. 5. Tricompartmental osteoarthritis of the left knee which is moderate to severe within the medial compartment. 6. Osteopenia. D/ / Kevin Cespedes MD / Kevin Cespedes MD Interpreting Provider: Kevin Cespedes MD Chest X-Ray 06/17/17 04:00 IMPRESSION: Improvement in previously visualized left pleural effusion and left basilar opacity. D/ / Ella Dorado MD / Ella Dorado MD Interpreting Provider: Ella Dorado MD Anesthesia Exam Vital Signs Temp Pulse Resp BP Pulse Ox 06/17/17 07:57 97 06/17/17 07:40 97.7 F 79 18 118/62 97 06/17/17 03:29 97.6 F 99 17 109/57 100 06/17/17 02:24 97.9 F 84 16 115/94 100 06/17/17 00:15 97.8 F 92 16 113/63 100 06/16/17 23:53 97.9 F 82 18 112/57 100 06/16/17 19:49 98 06/16/17 18:44 97.7 F 70 17 116/66 97 06/16/17 16:00 97.8 F 99 15 115/61 99 Intake and Output 06/16/17 06/17/17 06/17/17 23:59 07:59 15:59 Intake Total 480 / 480 260 / 260 Output Total 775 / 775 350 / 350 700 / 700 Balance -295 / -295 -90 / -90 -700 / -700 Intake: IV Fluids 260 / 260 Maxipime 1,000 MG In Water for inj. (sterile) 10 ML @ 150 mls/ hr IVP Q12HR [facility] Rx#:[id number] Vancocin 1,250 MG In Dextrose 5 250 / 250 % 250 ML @ 167 mls/hr IVPB Q24H [facility] Rx#:[id number] Oral 220 / 220 0 / 0 Blood Product 0 / 0 250 / 250 Plasma Unit [id number] 0 / 0 250 / 250 Output: Urine Amount (Catheter) 700 / 700 Catheter 775 / 775 350 / 350 Other: Meal Dinner Percent of Meal Consumed 90% Weight 78.9 kg Blood Glucose* 253 90 120 Patient Weight 06/17/17 23:59 Weight 78.9 kg Height: 5'4" Weight: 173# BMI = 30 NPO (# of Hours): MNOc - HEENT Pupil (Motor): Pupils equal, EOMI Mallampati: III Teeth: Normal (Fair dentition) Oral Opening: Greater than 3 - BUTTER WRAPPER LOC: Oriented BUTTER WRAPPER Motor: Normal RUE, Normal LUE, Normal RLE, Normal LLE, Normal Face BUTTER WRAPPER Sensory: Normal: RUE, LUE, RLE, LLE, Face - Cardiac Rhythm: Irregular Murmur: None JVD: No - Pulmonary Breath Sounds: bilateral Clear Respiratory Effort: Symmetrical Anesthesia Assess/Plan ASA Score: 3 (AFib w/RVR, COPD, DM, Hypothyroidism, Anxiety/Depression) Modified Bristol Scale for Level of Consciousness: Cooperative, oriented, and tranquil Anesthetic Plan: General Monitoring Plan: Standard Monitors Recovery Plan: PACU Anes Supervising Prov Stmt: Pt seen/evaluated, R&B discussed, questions answered and consent obtained. Elena Griffin MD
[2017-06-17] MEDS ORDERED: Acetaminophen IV 1,000 MG/100 ML INFUS..BTL ONE (15:51)
[2017-06-17] MEDS ORDERED: *HR* Promethazine 25 MG/ML VIAL IVP PRN (16:42)
[2017-06-17] MEDS ORDERED: *HR* Labetalol 20 MG/4 ML SYRINGE IVP PRN (16:42)
[2017-06-17] MEDS ORDERED: *HR* HYDROmorphone (PF) 1 MG/ML SYRINGE IVP PRN (16:42)
[2017-06-17] MEDS ORDERED: Ondansetron 4 MG/2 ML VIAL ONE ×2 (16:50→16:53)
[2017-06-17] MEDS ORDERED: *HR* Magnesium Sulfate 1 GM/2 ML VIAL ONE (16:51)
--- NOTE | 2017-06-17 18:06 | Orthopedic Operative Note ---
Date of procedure: 06/17/17 Procedure: OPERATIVE REPORT DATE OF PROCEDURE: 06/17/2017 SURGEON: Mike Romano MD IMPROVEMENT NURSE(S): There were no assistants PREOPERATIVE DIAGNOSIS: Left proximal thigh infected hematoma POSTOPERATIVE DIAGNOSIS: Same PROCEDURE: Incision, drainage, irrigation, and debridement of the left proximal thigh ANESTHESIA: And general anesthesia PREOPERATIVE ANTIBIOTICS: Patient was getting cefepime on the floor ESTIMATED BLOOD LOSS: 5 milliliters SPECIMENS: Hematoma sent for culture, soft tissue swabs sent for culture, necrotic fat sent for both culture and biopsy PREOPERATIVE NOTE AND INDICATIONS: This patient is an 81-year-old female who is just over 6 weeks out from internal fixation of the left proximal femur. She had initially been doing very well but was recently admitted due to concerns for pneumonia and was also found to have a left proximal thigh hematoma later discovered to be infected. Recommendation was for incision, drainage, irrigation, and debridement of the left proximal thigh to pharmacy innovation assistant infection clearance. The surgical plan was discussed with the patient. The risks, benefits, alternatives, and potential complications of this procedure were discussed with the patient including injury to veins, arteries, nerves, tendons, ligaments, and bone. Also discussed were the risks of infection, bleeding, pain, blood clots, the possible need for a blood transfusion, the possible need for further procedures, heart attack, stroke, and . Additional risks include persistent infection and hematoma and the need for further debridements. All of this was explained in simple terms, and the patient verbalized understanding and wished to proceed. Consent was given to proceed with surgery. PROCEDURE: The patient was seen in the preoperative holding area where the identify and the consent were confirmed. The left thigh was marked. Final questions were answered. The patient was brought back to the operating room and placed supine on the operating room table. A huddle was performed with the patient and all vital surgical team members confirming patient identity, the correct procedure, and the correct operative site. And general anesthesia was administered. The patient was placed in the right lateral decubitus position. The left thigh was prepped and draped in the usual sterile fashion. A surgical time out was performed immediately preceding the incision with all personnel in the operating room to confirm patient identity, the correct operative site and extremity, correct radiographic studies, availability of appropriate surgical equipment, and agreement on the planned procedure. A 5 cm longitudinal incision was made over the old incision used to place the lag screw. The small draining sinus was ellipsed out. Dissection proceeded through the subcutaneous tissue and immediately encountered was the hematoma sac and a large coagulum of hematoma was removed and sent for culture. The areas were swabbed. No grossly purulent material was seen. There is a significant amount of surrounding necrotic fat which was sharply debrided. The wound was copiously irrigated. The fascia was identified and found to be intact and a 3 cm window was made and no grossly purulent material could be identified near the lag screw. Using my finger I was able to sweep underneath the fascia decompressing this space. There is no gross purulence. A final irrigation using 3 L of saline were washed through the wound. The fascia was closed with a looped 0 PDS. A 10-Syriac drain was placed in the hematoma space and tunneled anteriorly. The skin was closed with 3-0 Vicryl and yovani. A sterile dressing was applied to the thigh. The patient was taken off the operating room table and placed on her hospital bed having tolerated the procedure well. The instrument, sponge, and needle counts were correct after wound closure. POST OPERATIVE PLAN: Weight Bearing: Weightbearing as tolerated DVT Prophylaxis: Will hold Xarelto if okay with the hospitalist and begin aspirin if okay with the hospitalist Activity: Avoid aggressive activities with the left lower extremity Wound Care: Will manage Hemovac depending on daily output recordings Perioperative antibiotic prophylaxis: We will continue cefepime while in the hospital and anticipate switching to oral antibiotics at least until wound healing. Social work for discharge planning Follow Up: 1 week after discharge.
--- NOTE | 2017-06-17 19:13 | Anesthesia Evaluation Post Op ---
Date of Encounter: 06/17/17 Time of Encounter: 18:30 - Vital Signs Vital Signs: Vital Signs/O2 Sat/Glucose, Most Current Temp Pulse Resp BP Pulse Ox 06/17/17 18:59 97.4 F L 83 16 112/57 100 06/17/17 18:40 98 F 90 15 114/77 100 06/17/17 18:12 98.0 F 95 17 100/78 97 06/17/17 18:02 96 17 113/63 99 06/17/17 17:52 97 15 119/69 99 06/17/17 17:42 98.3 F 88 16 114/78 97 - Lungs Lungs: Clear Ascult./Percussion - Airway Airway: Non-obstructed - Cardiovascular Irregular Rate, Baseline Rhythm - Mental Status Mental Status: Alert & Oriented, Answers Appropriately - Pain Pain Scale: 4 Pain Scale used: Numeric (1 - 10) - Nausea Vomiting Nausea Vomiting: Not Present - Hydration Hydration: Ice chips, Moscoso catheter - Discharge PostOp Status: Transfer Patient to floor Anes Supervising Prov Stmt: Pt seen/evaluated, VSS and pt has met criteria for discharge to floor. - MD Gaby
[2017-06-17] MEDS ORDERED: Aminoglycoside Consult 1 EACH MC ONE (19:24)
[2017-06-18 05:52] LABS: Hematocrit 29.9 % (35.3-44.9); Hemoglobin 9.4 g/dL (11.5-15.4); Mean Corpuscular HGB Conc 31.4 g/dL (31.6-35.5); Mean Corpuscular Hemoglobin 27.4 pg (28.0-33.3); Mean Corpuscular Volume 87.2 fL (83.0-100.0); Mean Platelet Volume 9.4 fL (9.4-12.4); Platelet Count 419 K/mcL (140-400); Red Blood Count 3.43 M/mcL (3.82-4.97); Red Cell Distribution Width 17.2 % (11.5-14.5)
[2017-06-18] MEDS: Cefepime HCl 1,000 MG in Water for inj. (sterile) 10 ML IVP SCH ×2 (05:56→17:47)
[2017-06-18 06:03] LABS: BUN/Creatinine Ratio 19 (6-26); Blood Urea Nitrogen 13 mg/dL (7-20); Carbon Dioxide 29 mEq/L (19-29); Chloride 104 mEq/L (98-109); Glucose 95 mg/dL (70-99); Potassium 3.6 mEq/L (3.5-4.5); Sodium 140 mEq/L (136-145); eGFR For African Americans > 60 (> 60); eGFR For Non-African Americans > 60 (> 60)
[2017-06-18 06:04] LABS: Calcium 8.4 mg/dL (8.6-10.8); Magnesium 1.1 mg/dL (1.6-2.6); Osmolality,Calculated 290 (280-300)
--- NOTE | 2017-06-18 09:52 | Internal Med Progress Note ---
Date of Encounter: 06/18/17 Time of Encounter: 08:30 - Assessment and plan (1) Hypomagnesemia Current Visit: Yes Status: Acute Assessment and plan: Replace today. Recheck tomorrow. (2) Sepsis Current Visit: Yes Status: Suspected Assessment and plan: Had evacuation of hematoma yesterday. Currently on IV Cefipime. Unfortunately there are no oral alternatives for treatment. Will plan on continuing Cefipime through entire course. Drain still in place. Qualifiers: Sepsis type: Pseudomonas Qualified Code(s): A41.52 - Sepsis due to Pseudomonas (3) Pneumonia Current Visit: Yes Status: Suspected Assessment and plan: Will complete 5 days of Cefipime for pneumonia. Qualifiers: Pneumonia type: due to other aerobic Gram-negative bacteria Laterality: left Lung location: lower lobe of lung Qualified Code(s): J15.6 - Pneumonia due to other Gram-negative bacteria (4) Hematoma Current Visit: Yes Status: Acute Assessment and plan: S/P I&D and washout yesterday. On ASA 325mg daily instead of Xarelto to decrease bleeding risk. Drain in place. (5) Atrial fibrillation Current Visit: Yes Status: Chronic Assessment and plan: Rate controlled on PO Cardizem. Xarelto held for now - on ASA 325mg daily. Qualifiers: Atrial fibrillation type: chronic Qualified Code(s): I48.2 - Chronic atrial fibrillation (6) Hypertension Current Visit: No Status: Chronic Assessment and plan: Controlled at this time. Qualifiers: Hypertension type: essential hypertension Qualified Code(s): I10 - Essential (primary) hypertension (7) Diabetes mellitus Current Visit: No Status: Chronic Assessment and plan: Continue accuchecks and coverage. Qualifiers: Diabetes mellitus type: type 2 Diabetes mellitus complication status: with unspecified complications Diabetes mellitus usp insulin use: without usp use Qualified Code(s): E11.8 - Type 2 diabetes mellitus with unspecified complications (8) CHF (congestive heart failure) Current Visit: Yes Status: Acute Assessment and plan: Volume status stable. Qualifiers: Congestive heart failure type: diastolic Congestive heart failure chronicity: acute on chronic Qualified Code(s): I50.33 - Acute on chronic diastolic (congestive) heart failure (9) Polymyalgia rheumatica Current Visit: Yes Status: Acute Assessment and plan: Continue chronic Prednisone 10mg PO daily (10) Anemia Current Visit: No Status: Chronic Assessment and plan: H/H stable today. Recheck tomorrow. Qualifiers: Anemia type: other cause Other causes of anemia: chronic disease, other Qualified Code(s): D63.8 - Anemia in other chronic diseases classified elsewhere - Subjective Interval history: Ms. Gunn is currently admitted for sepsis related to presumed pneumonia and infected hematoma L hip. She remains moderate to high risk due to potential for worsening clinical and respiratory status. Ms Gunn went to OR yesterday and had evacuation of hematoma. Initial cx grew PSDA - sensitive only to IV abx. She is much more interactive and oriented this AM. No fever or chills. Has pain with movement of hip but has not had pain med. Drain still in place. No CP or SOB. Appetite fair. Currently on ASA for a fib instead of Xarelto due to bleeding risk. - Constitutional Vitals: Temp Pulse Resp BP Pulse Ox 97.6 F 85 15 125/60 96 06/18/17 08:11 06/18/17 08:11 06/18/17 08:11 06/18/17 08:11 06/18/17 08:11 General appearance: Present: A&O X 3, pleasant, answers questions appropriately - Head Head exam: Present: normocephalic - Eye Eye exam: Present: conjuntiva pink - ENT ENT exam: Present: mucous membranes dry - Respiratory Respiratory exam: Present: decreased breath sounds. Absent: rales, rhonchi, wheezes - Cardiovascular Cardiovascular exam: Present: irregular rhythm. Absent: tachycardia - GI/Abdominal GI/Abdominal exam: Present: normal bowel sounds, soft. Absent: tenderness - Extremities Exam Extremities exam: Present: tenderness, warm - Neurological Exam Neurological exam: Present: alert, oriented X3 - Skin Skin exam: Present: dry, warm Internal Medicine: Result - Labs CBC & Chem 7: 06/18/17 05:31 06/18/17 05:31 Labs: Short CBC 06/18/17 Range/Units 05:31 WBC 8.2 (4.3-11.1) K/mcL Hgb 9.4 L (11.5-15.4) g/dL Hct 29.9 L (35.3-44.9) % Plt Count 419 H (140-400) K/mcL BMP 06/18/17 05:31 Sodium 140 Potassium 3.6 Chloride 104 Carbon Dioxide 29 BUN 13 Creatinine 0.68 Glucose 95 Calcium 8.4 L - ABG Interpretation ABG results: PT/INR, D-dimer PT 15.6 Seconds (9.4-12.1) H 06/17/17 06:11 - VTE Documentation of Mechanical Device: Venous foot pump, device Consult Discharge Plan - Plan Instructions: Heart Failure (DC), Atrial Fibrillation (DC), Urinary Tract Infection in Women (DC), Diabetes Mellitus Type 2 in Adults (DC), Sepsis (DC), Chronic Hypertension (DC), Precautions after Total Joint Replacement Surgery (DC ), Anemia (GEN), Pneumonia (DC), Joint Replacement Surgery, Seed Packer (GEN ) Referrals: NONE,PCP [Primary Care Provider] -
[2017-06-18] MEDS: Insulin LISPRO 300 UNITS/3 ML VIAL SQ SCH ×4 (10:59→23:15)
[2017-06-18] MEDS: Diltiazem CD (24hr) 120 MG CAPSULE PO SCH (11:04)
[2017-06-18] MEDS: predniSONE 10 MG TABLET PO SCH (11:05)
[2017-06-18] MEDS: Aspirin 325 MG TABLET PO SCH (11:05)
--- NOTE | 2017-06-18 11:49 | Orthopedics Progress Note ---
Date of Encounter: 06/18/17 Time of Encounter: 11:46 - Assessment and Plan (1) Hematoma Current Visit: Yes Status: Acute This patient was readmitted for encephalopathy and possible pneumonia 6 weeks out from ORIF of the left proximal femur with medullary nailing. She also has atrial fibrillation and RVR currently on Xarelto. She is found to have a left proximal thigh fluid collection on CT scan associated with a small draining fistula presumed to be a hematoma related to being on Xarelto which is possibly secondarily infected. I did discuss treatment options with the patient as well as her son who is at the bedside and my recommendation is for operative incision , drainage, irrigation, and debridement of the fluid collection with intraoperative cultures. The risks discussed included but were not limited to stiffness, bleeding, infection, blood clots, damage to neurovascular structures , tendons, ligaments, and bone. Also discussed was the risk of continued symptoms and possible need for further procedures. I did discuss the anesthesia risks including stroke, heart attack, and . Her INR is currently 3.0 and not suitable for drainage at this point. I did have a discussion with the hospitalist who will stop the Xarelto and we will check an INR in the morning and possibly give FFP. She was placed on the operative schedule for tomorrow pending the results of her INR. I did recommend an attempted aspiration at the bedside in order to try and obtain fluid for culture. After verbal consent was obtained from the son I did sterilize an area just anterior to the area of the punctate fistula. I did insert an 18- gauge spinal needle into the subcutaneous tissue and attempted aspiration and only a small amount of dark thick blood could be aspirated into the syringe. I did push the needle further down to the femur and tried to aspirate more fluid but was unable to do so. A total of only about three quarters of a milliliter were able to be aspirated. This was sent for aerobic and anaerobic cultures. An ABG was applied to the proximal lateral thigh. The patient has been placed on cefepime and Vancomycin by the hospitalist. Subjective Interval history: S: Resting in bed comfortably. Continued improvement regarding pain to the left thigh. O: A&O 3 Afebrile and vital signs are stable; Dressing is clean, dry, and intact to the left hip I can gently log roll the left hip without significant pain. No pain with axial loading of the left thigh. I can gently passively range the knee without significant discomfort. The patient grossly flexes and extends the ankle and toes. The foot is grossly sensate and well-perfused. Minimal sanguinous output in the drain Operative cultures and biopsy pending A: Postoperative day 1 after drainage of the left thigh hematoma secondarily infected with pseudomonas aeruginosa. P: I did keep the drain in place Dressing change tomorrow Continue cefepime for now I did have a discussion with the hospitalist regarding anticoagulation and we will switch her from Xarelto to aspirin 325 mg by mouth daily Weightbearing as tolerated on the bilateral lower extremities Up to chair at least twice a day I anticipate upon discharge switching to oral antibiotics until her wound is fully healed. Objective Vital signs: Vital Signs Temp Pulse Resp BP Pulse Ox 06/18/17 11:19 98.2 F 74 16 124/76 96 06/18/17 08:11 97.6 F 85 15 125/60 96 06/18/17 03:29 97.5 F L 85 16 121/64 100 06/17/17 23:21 98.1 F 73 18 117/64 100 06/17/17 18:59 97.4 F L 83 16 112/57 100 06/17/17 18:40 98 F 90 15 114/77 100 06/17/17 18:12 98.0 F 95 17 100/78 97 06/17/17 18:02 96 17 113/63 99 06/17/17 17:52 97 15 119/69 99 06/17/17 17:42 98.3 F 88 16 114/78 97 Intake and Output 06/18/17 06/18/17 06/18/17 00:59 07:59 15:59 Intake Total 60 / 60 Output Total 450 / 450 Balance -390 / -390 Intake: IV Fluids Maxipime 1,000 MG In Water for inj. (sterile) 10 ML @ 150 mls/ hr IVP Q12HR [facility] Rx#:[id number] Oral 60 / 60 Output: Estimated Blood Loss Urine Amount (Catheter) Catheter 450 / 450 Other: Meal Breakfast Percent of Meal Consumed 10% Weight Blood Glucose* 120 Patient Weight 06/18/17 22:59 Weight 81 kg - Labs CBC & BMP: 06/18/17 05:31 06/18/17 05:31 Labs: Abnormal lab results RBC 3.43 M/mcL (3.82-4.97) L 06/18/17 05:31 Hgb 9.4 g/dL (11.5-15.4) L 06/18/17 05:31 Hct 29.9 % (35.3-44.9) L 06/18/17 05:31 MCH 27.4 pg (28.0-33.3) L 06/18/17 05:31 MCHC 31.4 g/dL (31.6-35.5) L 06/18/17 05:31 RDW 17.2 % (11.5-14.5) H 06/18/17 05:31 Plt Count 419 K/mcL (140-400) H 06/18/17 05:31 PT 15.6 Seconds (9.4-12.1) H 06/17/17 06:11 POC Glucose 101 (58-89) H 06/18/17 08:17 Calcium 8.4 mg/dL (8.6-10.8) L 06/18/17 05:31 Magnesium 1.1 mg/dL (1.6-2.6) L 06/18/17 05:31 Alkaline Phosphatase 252 Units/L (38-126) H 06/17/17 06:11 B-Natriuretic Peptide 304 pg/mL (0-100) H 06/15/17 11:06 Serum Total Protein 5.9 g/dL (6.0-8.3) L 06/17/17 06:11 Albumin 2.0 g/dL (3.5-5.0) L 06/17/17 06:11 Globulin 3.9 g/dL (2.4-3.5) H 06/17/17 06:11 Albumin/Globulin Ratio 0.5 (1.1-2.2) L 06/17/17 06:11 Ur Specific [place] > 1.030 (1.010-1.025) H 06/15/17 14:40 Urine Microscopic RBC 3-5 per hpf (0-3) H 06/15/17 14:40 Urine Microscopic WBC 3-5 per hpf (0-3) H 06/15/17 14:40 Ur Squamous Epith Cells Many per lpf (None-Few) H 06/15/17 14:40 - VTE Documentation of Mechanical Device: Venous foot pump, device Consult Discharge Plan - Plan Instructions: Heart Failure (DC), Atrial Fibrillation (DC), Urinary Tract Infection in Women (DC), Diabetes Mellitus Type 2 in Adults (DC), Sepsis (DC), Chronic Hypertension (DC), Precautions after Total Joint Replacement Surgery (DC ), Anemia (GEN), Pneumonia (DC), Joint Replacement Surgery, 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
[2017-06-18] MEDS: *HR* HYDROcodone/Acet 10/325 mg TABLET PO PRN (11:54)
[2017-06-19 05:05] LABS: Hematocrit 30.8 % (35.3-44.9); Hemoglobin 9.3 g/dL (11.5-15.4); Mean Corpuscular HGB Conc 30.2 g/dL (31.6-35.5); Mean Corpuscular Volume 89.5 fL (83.0-100.0); Mean Platelet Volume 9.6 fL (9.4-12.4); Platelet Count 434 K/mcL (140-400); Red Blood Count 3.44 M/mcL (3.82-4.97)
[2017-06-19 05:23] LABS: Alanine Aminotransferase 29 Units/L (0-55); Albumin/Globulin Ratio 0.5 (1.1-2.2); Alkaline Phosphatase 315 Units/L (38-126); Aspartate Amino Transferase 33 Units/L (5-34); BUN/Creatinine Ratio 27 (6-26); Bilirubin,Total 0.4 mg/dL (0.2-1.2); Blood Urea Nitrogen 22 mg/dL (7-20); Calcium 8.7 mg/dL (8.6-10.8); Carbon Dioxide 25 mEq/L (19-29); Chloride 105 mEq/L (98-109); Glucose 164 mg/dL (70-99); Magnesium 2.2 mg/dL (1.6-2.6); Osmolality,Calculated 295 (280-300); Sodium 139 mEq/L (136-145); eGFR For African Americans > 60 (> 60); eGFR For Non-African Americans > 60 (> 60)
[2017-06-19 05:27] LABS: Potassium 4.1 mEq/L (3.5-4.5)
[2017-06-19] MEDS: Cefepime HCl 1,000 MG in Water for inj. (sterile) 10 ML IVP SCH (05:38)
[2017-06-19] MEDS: *HR* HYDROcodone/Acet 10/325 mg TABLET PO PRN ×3 (05:52→17:53)
--- NOTE | 2017-06-19 07:56 | Orthopedics Progress Note ---
Date of Encounter: 06/19/17 Time of Encounter: 07:54 - Assessment and Plan (1) Hematoma Current Visit: Yes Status: Acute Subjective Interval history: S: Resting in bed comfortably. Pain very well controlled to the left hip/groin. Improving O: A&O 3 Afebrile and vital signs are stable; Dressing is taken down. Incision is clean, dry, and intact. Drain in place with 50 cc total output. I can gently log roll the left hip without significant pain. No pain with axial loading of the left thigh. I can gently passively range the knee without significant discomfort. The patient grossly flexes and extends the ankle and toes. The foot is grossly sensate and well-perfused. Operative cultures pending. Gram stain shows gram negative rods. Previous cultures showins pseudomonas. A: Postoperative day 2 after drainage of the left thigh hematoma secondarily infected with pseudomonas aeruginosa. P: I did keep the drain in place today. I will evaluate output over the next 24 hours and possibly pull tomorrow. Daily dressing changes Continue cefepime for now Weightbearing as tolerated on the bilateral lower extremities Up to chair at least twice a day Objective Vital signs: Vital Signs Temp Pulse Resp BP Pulse Ox 06/19/17 06:00 15 06/19/17 05:00 99 F 90 18 114/86 97 06/18/17 19:00 97.8 F 94 16 109/61 97 06/18/17 15:18 97.3 F L 77 18 103/67 97 06/18/17 11:19 98.2 F 74 16 124/76 96 06/18/17 08:11 97.6 F 85 15 125/60 96 Intake and Output 06/18/17 06/18/17 06/19/17 15:59 23:59 07:59 Intake Total 300 / 300 40 / 40 0 / 0 Output Total 450 / 450 450 / 450 Balance -150 / -150 40 / 40 -450 / -450 Intake: IV Fluids 10 / 10 Maxipime 1,000 MG In Water for 10 10 inj. (sterile) 10 ML @ 150 mls/ hr IVP Q12HR [facility] Rx#:[id number] Oral 300 / 300 30 / 30 0 / 0 Output: Catheter 450 / 450 400 / 400 Wound Drainage 50 / 50 Left Hip 50 / 50 Other: Meal Lunch Percent of Meal Consumed 100% Weight 78.1 kg Blood Glucose* 120 287 Patient Weight 06/19/17 23:59 Weight 78.1 kg - Labs CBC & BMP: 06/19/17 04:51 06/19/17 04:51 Labs: Abnormal lab results WBC 11.5 K/mcL (4.3-11.1) H 06/19/17 04:51 RBC 3.44 M/mcL (3.82-4.97) L 06/19/17 04:51 Hgb 9.3 g/dL (11.5-15.4) L 06/19/17 04:51 Hct 30.8 % (35.3-44.9) L 06/19/17 04:51 MCH 27.0 pg (28.0-33.3) L 06/19/17 04:51 MCHC 30.2 g/dL (31.6-35.5) L 06/19/17 04:51 RDW 17.0 % (11.5-14.5) H 06/19/17 04:51 Plt Count 434 K/mcL (140-400) H 06/19/17 04:51 PT 15.6 Seconds (9.4-12.1) H 06/17/17 06:11 BUN 22 mg/dL (7-20) H 06/19/17 04:51 BUN/Creatinine Ratio 27 (6-26) H 06/19/17 04:51 Glucose 164 mg/dL (70-99) H 06/19/17 04:51 POC Glucose 120 (58-89) H 06/18/17 11:25 Alkaline Phosphatase 315 Units/L (38-126) H 06/19/17 04:51 B-Natriuretic Peptide 304 pg/mL (0-100) H 06/15/17 11:06 Albumin 2.0 g/dL (3.5-5.0) L 06/19/17 04:51 Globulin 4.0 g/dL (2.4-3.5) H 06/19/17 04:51 Albumin/Globulin Ratio 0.5 (1.1-2.2) L 06/19/17 04:51 Ur Specific [place] > 1.030 (1.010-1.025) H 06/15/17 14:40 Urine Microscopic RBC 3-5 per hpf (0-3) H 11/02/17 14:40 Urine Microscopic WBC 3-5 per hpf (0-3) H 06/15/17 14:40 Ur Squamous Epith Cells Many per lpf (None-Few) H 06/15/17 14:40 - VTE Documentation of Mechanical Device: Venous foot pump, device Consult Discharge Plan - Plan Instructions: Heart Failure (DC), Atrial Fibrillation (DC), Urinary Tract Infection in Women (DC), Diabetes Mellitus Type 2 in Adults (DC), Sepsis (DC), Chronic Hypertension (DC), Precautions after Total Joint Replacement Surgery (DC ), Anemia (GEN), Pneumonia (DC), Joint Replacement Surgery, Human Resources Officer (GEN ) Referrals: NONE,PCP [Primary Care Provider] -
--- NOTE | 2017-06-19 08:21 | Internal Med Progress Note ---
<Brandon Melo - Last Filed: 06/19/17 10:58> Date of Encounter: 06/19/17 Time of Encounter: 08:20 - Assessment and plan (1) Wound infection after surgery Current Visit: Yes Status: Acute Assessment and plan: Patient discharged from [facility] April 2017 to an ECF after an ORIF due to left femoral fracture. She was started on Doxycycline for 7 days on 06/08/17 due to concern for left femur drainage. CT left hip reveals status post ORIF of left intertrochanteric femur fracture with well-circumscribed fluid collection seen laterally as described above. These measure 3.2 x 4.4 x 8.1 cm and 2.3 x 1.7 x 3.0 cm respectively. Each collection contains a single locule of gas and findings are highly suspicious for abscesses as the patient is greater than 1 month postop. These collections lie along the surgical scar. There is surrounding soft tissue stranding. Wound culture 06/15/17 reveals Pseudomonas aeruginosa with sensitivity to IV antibiotics Intra-operative deep Wound culture 06/17/17 reveals gram negative rods Continue Cefepime IV. Unfortunately there are no oral alternatives for treatment. Will plan on continuing Cefipime through entire course. Patient will need Power glide access prior to discharge. Drain still in place. Anticipate left hip drain removal tomorrow per Dr. Romano. Weight bearing as tolerated on the bilateral lower extremities Up to chair at least twice a day Dr. Romano following Qualifiers: Encounter type: initial encounter Qualified Code(s): T81.4XXA - Infection following a procedure, initial encounter (2) Sepsis Current Visit: Yes Status: Suspected Assessment and plan: 2 SIRS criteria with WBC 13.6, tachycardia HR 120, Sepsis secondary to left hip infection vs. PNA Lactic acid 1.7 Wound culture reveals Pseudomonas aeruginosa Blood cultures show no growth to date Had evacuation of hematoma 06/17/17. Drain still in place. Currently on IV Cefipime. Unfortunately there are no oral alternatives for treatment. Will plan on continuing Cefipime through entire course. Qualifiers: Sepsis type: Pseudomonas Qualified Code(s): A41.52 - Sepsis due to Pseudomonas (3) Healthcare-associated pneumonia Current Visit: Yes Status: Acute Assessment and plan: Patient was sent from the ECF after she had an abnormal chest x-ray with low left lung volumes and possible plug or obstruction. CT scan showed bilateral small pleural effusions more on the left than the right with possible atelectases, could not exclude pneumonia WBC 13.1 --> 11.5 Blood cultures show to growth to date Will complete 5 days of Cefipime for pneumonia. Repeat CXR reveals Improvement in previously visualized left pleural effusion and left basilar opacity. (4) Acute encephalopathy Current Visit: Yes Status: Acute Assessment and plan: She is at baseline A&Ox2 today, disoriented to time. Much improved (5) Atrial fibrillation with RVR Current Visit: Yes Status: Chronic Assessment and plan: Titrate off Cardizem drip. Start Cardizem 30mg PO TID Continue home Sotalol Continue full dose ASA for now to decrease bleeding risk Resume Xarelto once cleared by ortho. (6) CHF (congestive heart failure) Current Visit: Yes Status: Acute Assessment and plan: BNP 304, rales on exam, b/l pedal edema on admission Echocardiogram reveals A-fib with RVR, LV systolic function appears normal. Recommend repeat limited study with definity when heart rate normalizes I's and O's and daily weight Volume status stable. Qualifiers: Congestive heart failure type: diastolic Congestive heart failure chronicity: acute on chronic Qualified Code(s): I50.33 - Acute on chronic diastolic (congestive) heart failure (7) Hypertension Current Visit: No Status: Chronic Assessment and plan: Controlled at this time. Qualifiers: Hypertension type: essential hypertension Qualified Code(s): I10 - Essential (primary) hypertension (8) Hyperlipidemia Current Visit: No Status: Chronic Assessment and plan: Continue statin Qualifiers: Hyperlipidemia type: unspecified Qualified Code(s): E78.5 - Hyperlipidemia , unspecified (9) DM type 2 (diabetes mellitus, type 2) Current Visit: Yes Status: Chronic Assessment and plan: HGB a1c 5.3 Discontinue pioglitazone permanently as it can provoke CHF Insulin sliding scale Qualifiers: Diabetes mellitus complication status: without complication Diabetes mellitus residential insulin use: without residential use Qualified Code(s): E11.9 - Type 2 diabetes mellitus without complications (10) Polymyalgia rheumatica Current Visit: Yes Status: Acute Assessment and plan: Continue chronic Prednisone 10mg PO daily (11) DVT prophylaxis Current Visit: No Status: Acute Assessment and plan: Continue full dose ASA for now to decrease bleeding risk Resume Xarelto once cleared by ortho. - Subjective Interval history: Patient seen and examined. She is at baseline A&Ox2 today, disoriented to time, but appears much improved. Anticipate left hip drain removal tomorrow per Dr. Romano. Son is at bedside and all questions are answered. - Constitutional Vitals: Temp Pulse Resp BP Pulse Ox 98.7 F 78 15 119/53 92 06/19/17 07:55 06/19/17 07:55 06/19/17 07:55 06/19/17 07:55 06/19/17 07:55 General appearance: Present: cooperative, A&O X 2, pleasant, no acute distress, answers questions appropriately - Head Head exam: Present: atraumatic, normal inspection, normocephalic - Eye Eye exam: Present: EOMI, PERRL, conjuntiva pink, sclera anicteric - ENT ENT exam: Present: mucous membranes moist, normal oropharynx - Neck Neck exam general surgery: Present: normal inspection, supple - Respiratory Respiratory exam: Present: CTAB. Absent: rales, rhonchi, tachypnea - Cardiovascular Cardiovascular exam: Present: irregular rhythm, +S1, +S2 - GI/Abdominal GI/Abdominal exam: Present: normal bowel sounds, soft. Absent: distended, guarding, tenderness - Additional comments: donohue in place - Extremities Exam Extremities exam: Present: tenderness (left hip dressing C/D/I with serosanguious output in hemovac), warm, radial pulses palpable and symmetrical. Absent: pedal edema - Incison Comments: left hip dressing C/D/I with serosanguious output in hemovac - Back Exam Back exam: Present: normal inspection. Absent: paraspinal tenderness, tenderness - Neurological Exam Neurological exam: Present: alert, oriented X3, no focal deficits. Absent: speech deficit - Psychiatric Psychiatric exam: Present: normal affect, normal mood - Skin Additional comments: left hip dressing C/D/I with serosanguious output in hemovac Internal Medicine: Result - Labs CBC & Chem 7: 06/19/17 04:51 06/19/17 04:51 Labs: Short CBC 06/19/17 Range/Units 04:51 WBC 11.5 H (4.3-11.1) K/mcL Hgb 9.3 L (11.5-15.4) g/dL Hct 30.8 L (35.3-44.9) % Plt Count 434 H (140-400) K/mcL BMP 06/19/17 04:51 Sodium 139 Potassium 4.1 Chloride 105 Carbon Dioxide 25 BUN 22 H Creatinine 0.82 Glucose 164 H Calcium 8.7 Liver Function 06/19/17 Range/Units 04:51 Total Bilirubin 0.4 (0.2-1.2) mg/dL AST 33 (5-34) Units/L ALT 29 (0-55) Units/L Alkaline Phosphatase 315 H (38-126) Units/L Albumin 2.0 L (3.5-5.0) g/dL - ABG Interpretation ABG results: PT/INR, D-dimer PT 15.6 Seconds (9.4-12.1) H 06/17/17 06:11 - VTE Documentation of Mechanical Device: Venous foot pump, device Consult Discharge Plan - Plan Instructions: Heart Failure (DC), Atrial Fibrillation (DC), Urinary Tract Infection in Women (DC), Diabetes Mellitus Type 2 in Adults (DC), Sepsis (DC), Chronic Hypertension (DC), Precautions after Total Joint Replacement Surgery (DC ), Anemia (GEN), Pneumonia (DC), Joint Replacement Surgery, 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 ) Referrals: NONE,PCP [Primary Care Provider] - <Dagoberto Plasencia - Last Filed: 06/19/17 18:05> Date of Encounter: 06/19/17 - Assessment and plan (1) Sepsis Current Visit: Yes Status: Suspected Qualifiers: Sepsis type: Pseudomonas Qualified Code(s): A41.52 - Sepsis due to Pseudomonas (2) Pneumonia Current Visit: Yes Status: Suspected Qualifiers: Pneumonia type: due to other aerobic Gram-negative bacteria Laterality: left Lung location: lower lobe of lung Qualified Code(s): J15.6 - Pneumonia due to other Gram-negative bacteria (3) Hematoma Current Visit: Yes Status: Acute (4) Atrial fibrillation Current Visit: Yes Status: Chronic Qualifiers: Atrial fibrillation type: chronic Qualified Code(s): I48.2 - Chronic atrial fibrillation (5) Hypertension Current Visit: No Status: Chronic Qualifiers: Hypertension type: essential hypertension Qualified Code(s): I10 - Essential (primary) hypertension (6) Diabetes mellitus Current Visit: No Status: Chronic Qualifiers: Diabetes mellitus type: type 2 Diabetes mellitus complication status: with unspecified complications Diabetes mellitus residential insulin use: without intermediate frame tender use Qualified Code(s): E11.8 - Type 2 diabetes mellitus with unspecified complications (7) CHF (congestive heart failure) Current Visit: Yes Status: Acute Qualifiers: Congestive heart failure type: diastolic Congestive heart failure chronicity: acute on chronic Qualified Code(s): I50.33 - Acute on chronic diastolic (congestive) heart failure (8) Polymyalgia rheumatica Current Visit: Yes Status: Acute (9) Anemia Current Visit: No Status: Chronic Qualifiers: Anemia type: other cause Other causes of anemia: chronic disease, other Qualified Code(s): D63.8 - Anemia in other chronic diseases classified elsewhere (10) Hypomagnesemia Current Visit: Yes Status: Resolved - Constitutional Vitals: Temp Pulse Resp BP Pulse Ox 97.6 F 82 15 110/48 96 06/19/17 15:00 06/19/17 15:00 06/19/17 15:00 06/19/17 15:00 06/19/17 15:00 Internal Medicine: Result - Labs CBC & Chem 7: 06/19/17 04:51 06/19/17 04:51 Labs: Short CBC 06/19/17 Range/Units 04:51 WBC 11.5 H (4.3-11.1) K/mcL Hgb 9.3 L (11.5-15.4) g/dL Hct 30.8 L (35.3-44.9) % Plt Count 434 H (140-400) K/mcL BMP 06/19/17 04:51 Sodium 139 Potassium 4.1 Chloride 105 Carbon Dioxide 25 BUN 22 H Creatinine 0.82 Glucose 164 H Calcium 8.7 Liver Function 06/19/17 Range/Units 04:51 Total Bilirubin 0.4 (0.2-1.2) mg/dL AST 33 (5-34) Units/L ALT 29 (0-55) Units/L Alkaline Phosphatase 315 H (38-126) Units/L Albumin 2.0 L (3.5-5.0) g/dL - ABG Interpretation ABG results: PT/INR, D-dimer PT 15.6 Seconds (9.4-12.1) H 06/17/17 06:11 - Attending Attestation I examined this patient and my medical decision-making was reviewed with the Resident Physician on 06/19/17. I agree with the documented findings, disposition and treatment plan as described except to the extent set forth below. Ms Gunn is currently admitted for infected hematoma L hip. She remains moderate to high risk due to potential for worsening clinical status. Ms Gunn feels OK. She is alert and appears oriented. No fever or chills. Appetite OK. Anticipate drain to come out tomorrow. Exam Alert. Comfortable Heart irreg Mucus membranes dry Lungs clear Abd soft I/P 1. Infected hematoma 2. a fib Further diagnoses and plan as above.
[2017-06-19] MEDS: Insulin LISPRO 300 UNITS/3 ML VIAL SQ SCH ×4 (08:29→21:38)
[2017-06-19] MEDS: Diltiazem CD (24hr) 120 MG CAPSULE PO SCH (08:30)
[2017-06-19] MEDS: Aspirin 325 MG TABLET PO SCH (08:30)
[2017-06-19] MEDS: predniSONE 10 MG TABLET PO SCH (08:30)
[2017-06-19] MEDS ORDERED: 0.9 % Sodium Chloride 250 ML IVC ONE (14:06)
[2017-06-19] MEDS: Cefepime HCl 2,000 MG in Water for inj. (sterile) 10 ML IVP SCH (15:06)
[2017-06-20 06:03] LABS: Basophils % 0.2 %; Eosinophils # 0.1 K/mcL (0.0-0.6); Eosinophils % 0.6 %; Immature Granulocytes % 1.3 % (0-4); Lymphocytes # 2.2 K/mcL (0.6-4.6); Lymphocytes % 17.4 %; Mean Corpuscular Volume 90.1 fL (83.0-100.0); Mean Platelet Volume 9.8 fL (9.4-12.4); Monocytes # 1.1 K/mcL (0.0-1.3); Monocytes % 8.5 %; Neutrophils # 9.1 K/mcL (1.6-8.9); Nucleated Red Blood Cells 0.2 /100 WBC (0); Platelet Count 465 K/mcL (140-400); Red Blood Count 3.33 M/mcL (3.82-4.97); Red Cell Distribution Width 16.7 % (11.5-14.5)
[2017-06-20 06:15] LABS: BUN/Creatinine Ratio 35 (6-26); Blood Urea Nitrogen 26 mg/dL (7-20); Calcium 9.1 mg/dL (8.6-10.8); Carbon Dioxide 26 mEq/L (19-29); Chloride 105 mEq/L (98-109); Glucose 107 mg/dL (70-99); Osmolality,Calculated 293 (280-300); Potassium 4.7 mEq/L (3.5-4.5); Sodium 139 mEq/L (136-145); eGFR For African Americans > 60 (> 60); eGFR For Non-African Americans > 60 (> 60)
[2017-06-20 06:17] LABS: INR 1.1; Prothrombin Time 11.6 Seconds (9.4-12.1)
--- NOTE | 2017-06-20 07:48 | Orthopedics Progress Note ---
Date of Encounter: 06/20/17 Time of Encounter: 07:45 - Assessment and Plan (1) Hematoma Current Visit: Yes Status: Acute Subjective Interval history: S: Resting in bed comfortably. Has been slow to mobilize with therapy Pain is well-controlled left hip and groin region O: A&O 3 Afebrile and vital signs are stable; Dressing is taken down. Incision is clean, dry, and intact. No drainage. No output in the drain this morning I can gently log roll the left hip without significant pain. No pain with axial loading of the left thigh. I can gently passively range the knee without significant discomfort. The patient grossly flexes and extends the ankle and toes. The foot is grossly sensate and well-perfused. Both operative cultures and preoperative aspirate cultures growing pseudomonas aeruginosa sensitive to cefepime A: Postoperative day 3 after drainage of the left thigh hematoma secondarily infected with pseudomonas aeruginosa. P: Drain is pulled Daily dressing changes Continue cefepime for now; ID consulted for definitive antibiotic recommendations I recommend antibiotics at least until the wound has healed and the yovani are out; at least 2 weeks. Weightbearing as tolerated on the bilateral lower extremities I did encourage the patient to work with therapy today to at least get her up to a chair. Objective Vital signs: Vital Signs Temp Pulse Resp BP Pulse Ox 06/20/17 05:17 99.4 F 100 16 111/96 97 06/19/17 21:30 98.2 F 84 15 109/60 97 06/19/17 15:00 97.6 F 82 15 110/48 96 06/19/17 11:00 97.8 F 89 15 117/67 94 06/19/17 09:00 94 06/19/17 07:55 98.7 F 78 15 119/53 92 Intake and Output 06/19/17 06/19/17 06/20/17 15:59 23:59 07:59 Intake Total 350 / 350 60 / 60 240 / 240 Output Total 150 / 150 0 / 0 260 / 260 Balance 200 / 200 60 / 60 -20 / -20 Intake: Oral 350 / 350 60 / 60 240 / 240 Output: Catheter 150 / 150 0 / 0 250 / 250 Wound Drainage Left Hip Other: Meal Breakfast Lunch Percent of Meal Consumed 0% 100% Weight 78.1 kg 79 kg Blood Glucose* 267 226 Patient Weight 06/20/17 23:59 Weight 79 kg - Labs CBC & BMP: 06/20/17 05:20 06/20/17 05:20 Labs: Abnormal lab results WBC 12.7 K/mcL (4.3-11.1) H 06/20/17 05:20 RBC 3.33 M/mcL (3.82-4.97) L 06/20/17 05:20 Hgb 9.0 g/dL (11.5-15.4) L 06/20/17 05:20 Hct 30.0 % (35.3-44.9) L 06/20/17 05:20 MCH 27.0 pg (28.0-33.3) L 06/20/17 05:20 MCHC 30.0 g/dL (31.6-35.5) L 06/20/17 05:20 RDW 16.7 % (11.5-14.5) H 06/20/17 05:20 Plt Count 465 K/mcL (140-400) H 06/20/17 05:20 Neutrophils # 9.1 K/mcL (1.6-8.9) H 06/20/17 05:20 Nucleated RBCs/100 WBC 0.2 /100 WBC (0) H 06/20/17 05:20 Potassium 4.7 mEq/L (3.5-4.5) H 06/20/17 05:20 BUN 26 mg/dL (7-20) H 06/20/17 05:20 BUN/Creatinine Ratio 35 (6-26) H 06/20/17 05:20 Glucose 107 mg/dL (70-99) H 06/20/17 05:20 POC Glucose 226 (58-89) H 06/19/17 21:06 Alkaline Phosphatase 315 Units/L (38-126) H 06/19/17 04:51 B-Natriuretic Peptide 304 pg/mL (0-100) H 06/15/17 11:06 Albumin 2.0 g/dL (3.5-5.0) L 06/19/17 04:51 Globulin 4.0 g/dL (2.4-3.5) H 06/19/17 04:51 Albumin/Globulin Ratio 0.5 (1.1-2.2) L 06/19/17 04:51 Ur Specific [place] > 1.030 (1.010-1.025) H 06/15/17 14:40 Urine Microscopic RBC 3-5 per hpf (0-3) H 06/15/17 14:40 Urine Microscopic WBC 3-5 per hpf (0-3) H 06/15/17 14:40 Ur Squamous Epith Cells Many per lpf (None-Few) H 06/15/17 14:40 - VTE Documentation of Mechanical Device: Intermittent pneumatic compression device Consult Discharge Plan - Plan Instructions: Heart Failure (DC), Atrial Fibrillation (DC), Urinary Tract Infection in Women (DC), Diabetes Mellitus Type 2 in Adults (DC), Sepsis (DC), Chronic Hypertension (DC), Precautions after Total Joint Replacement Surgery (DC ), Anemia (GEN), Pneumonia (DC), Joint Replacement Surgery, 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
[2017-06-20] MEDS: Diltiazem CD (24hr) 120 MG CAPSULE PO SCH (09:41)
[2017-06-20] MEDS: Aspirin 325 MG TABLET PO SCH (09:41)
[2017-06-20] MEDS: Insulin LISPRO 300 UNITS/3 ML VIAL SQ SCH ×3 (09:43→16:36)
[2017-06-20] MEDS ORDERED: Sennosides/Docusate Sodium TABLET PO SCH (09:45)
[2017-06-20] MEDS: predniSONE 10 MG TABLET PO SCH (09:46)
[2017-06-20] MEDS: *HR* HYDROcodone/Acet 10/325 mg TABLET PO PRN ×2 (13:16→18:45)
--- NOTE | 2017-06-20 14:18 | Discharge Summary ---
<Brandon Melo - Last Filed: 06/20/17 16:24> Date of Encounter: 06/20/17 Time of Encounter: 09:20 - Discharge Diagnosis (1) Wound infection after surgery Priority: Primary Status: Acute Comments: Patient discharged from [facility] April 2017 to an ECF after an ORIF due to left femoral fracture. She was started on Doxycycline for 7 days on 06/08/17 due to concern for left femur drainage. CT left hip reveals status post ORIF of left intertrochanteric femur fracture with well-circumscribed fluid collection seen laterally as described above. These measure 3.2 x 4.4 x 8.1 cm and 2.3 x 1.7 x 3.0 cm respectively. Each collection contains a single locule of gas and findings are highly suspicious for abscesses as the patient is greater than 1 month postop. These collections lie along the surgical scar. There is surrounding soft tissue stranding. Both Wound culture 06/15/17 and Intra-operative deep Wound culture 06/17/17 reveal Pseudomonas aeruginosa with sensitivity to IV antibiotics Continue Cefepime IV. Unfortunately there are no oral alternatives for treatment. Will plan on continuing Cefipime through entire course. Patient has Power glide access in place. ID consulted and recommends 2 week duration of treatment on Cefepime IV Weight bearing as tolerated on the bilateral lower extremities Up to chair at least twice a day Dr. Romano following Qualifiers: Encounter type: initial encounter Qualified Code(s): T81.4XXA - Infection following a procedure, initial encounter (2) Sepsis Priority: Primary Status: Suspected Comments: 2 SIRS criteria with WBC 13.6, tachycardia HR 120, Sepsis secondary to left hip infection vs. PNA Lactic acid 1.7 Wound cultures reveal Pseudomonas aeruginosa Blood cultures show no growth to date Had evacuation of hematoma 06/17/17. Drain still in place. Currently on IV Cefipime. Unfortunately there are no oral alternatives for treatment. Will plan on continuing Cefipime through entire course. ID consulted for recommendations regarding duration of treatment on Cefepime IV Qualifiers: Sepsis type: Pseudomonas Qualified Code(s): A41.52 - Sepsis due to Pseudomonas (3) Healthcare-associated pneumonia Priority: Primary Status: Acute Comments: Patient was sent from the ECF after she had an abnormal chest x-ray with low left lung volumes and possible plug or obstruction. CT scan showed bilateral small pleural effusions more on the left than the right with possible atelectases, could not exclude pneumonia WBC 13.1 --> 11.5 Blood cultures show to growth to date Will complete 5 days of Cefipime for pneumonia. Repeat CXR reveals Improvement in previously visualized left pleural effusion and left basilar opacity. (4) Acute encephalopathy Priority: Primary Status: Acute Comments: She is at baseline A&Ox2 today, disoriented to time. Much improved (5) Atrial fibrillation with RVR Priority: Primary Status: Chronic Comments: Titrated off Cardizem drip. Started Cardizem 30mg PO TID Continue home Sotalol Continue full dose ASA for now to decrease bleeding risk Resume Xarelto once cleared by ortho. (6) CHF (congestive heart failure) Priority: Primary Status: Acute Comments: BNP 304, rales on exam, b/l pedal edema on admission Echocardiogram reveals A-fib with RVR, LV systolic function appears normal. Recommend repeat limited study with definity when heart rate normalizes I's and O's and daily weight Volume status stable. Qualifiers: Congestive heart failure type: diastolic Congestive heart failure chronicity: acute on chronic Qualified Code(s): I50.33 - Acute on chronic diastolic (congestive) heart failure (7) Hypertension Priority: Secondary Status: Chronic Comments: Continue antihypertensive meds Qualifiers: Hypertension type: essential hypertension Qualified Code(s): I10 - Essential (primary) hypertension (8) Hyperlipidemia Priority: Secondary Status: Chronic Comments: Continue statin Qualifiers: Hyperlipidemia type: unspecified Qualified Code(s): E78.5 - Hyperlipidemia , unspecified (9) DM type 2 (diabetes mellitus, type 2) Priority: Secondary Status: Chronic Comments: HGB a1c 5.3 Discontinue pioglitazone permanently as it can provoke CHF Insulin sliding scale Qualifiers: Diabetes mellitus complication status: without complication Diabetes mellitus terminologist insulin use: without usp use Qualified Code(s): E11.9 - Type 2 diabetes mellitus without complications (10) Polymyalgia rheumatica Priority: Secondary Status: Acute Comments: Continue chronic Prednisone 10mg PO daily (11) DVT prophylaxis Priority: Primary Status: Acute Comments: Continue full dose ASA for now to decrease bleeding risk Resume Xarelto once cleared by ortho. - Discharge Medications Prescriptions: Aspirin 325 mg PO DAILY #30 tablet Cefepime HCl/Dextrose, Iso-Osm [Cefepime 2 gm Injection] 2 gm IV DAILY 14 Days mls Diltiazem HCl [Diltiazem ER] 120 mg PO Q24H #30 cap.er.deg Metformin HCl [Metformin HCl ER] 500 mg PO DAILY #30 [id number] Omeprazole [PriLOSEC] 40 mg PO DAILY@0630 #30 capsule. predniSONE [PredniSONE] 10 mg PO DAILY #30 tablet Sennosides/Docusate Sodium [Senna Plus] 2 each PO BID PRN #60 tablet PRN Reason: Constipation Home Medications: Atorvastatin Calcium [Lipitor] 20 mg PO DAILY 05/02/17 [History] Calcium Carbonate/Vitamin D3 [Oyster Shell Calcium-Vit D Tab] 1 tab PO DAILY [History] Cholecalciferol (Vitamin D3) [Vitamin D3] 1,000 unit PO DAILY 05/02/17 [History] Cyanocobalamin (Vitamin B-12) [Vitamin B-12] 1,000 mcg SL DAILY 05/02/17 [ History] Duloxetine HCl [Cymbalta] 60 mg PO DAILY 05/02/17 [History] Folic Acid 1 mg PO DAILY 05/02/17 [History] Levothyroxine [Synthroid] 100 mcg PO DAILY 05/02/17 [History] Magnesium Oxide [Magnesium] 400 mg PO DAILY 05/02/17 [History] Omeprazole 20 mg PO DAILY 05/02/17 [History] Potassium Chloride [K-Tab ER] 20 meq PO DAILY 05/02/17 [History] Sotalol [Betapace] 80 mg PO Q12HR 05/02/17 [History] Docusate [Colace] 100 mg PO BID PRN capsule 05/08/17 [Rx] HYDROcodone/Acet 10/325 mg [[place] 10-325 mg] 1 tab PO Q4H PRN #20 tablet [Rx] Methocarbamol [Robaxin] 750 mg PO Q8HR #30 tablet 05/09/17 [Rx] Acetaminophen [Tylenol] 650 mg PO Q6HR PRN tablet 06/20/17 [Rx] Aspirin 325 mg PO DAILY #30 tablet 06/20/17 [Rx] Cefepime HCl/Dextrose, Iso-Osm [Cefepime 2 gm Injection] 2 gm IV DAILY 14 Days mls 06/20/17 [Rx] Diltiazem HCl [Diltiazem ER] 120 mg PO Q24H #30 cap.er.deg 06/20/17 [Rx] Metformin HCl [Metformin HCl ER] 500 mg PO DAILY #30 [id number] 06/20/17 [Rx] Omeprazole [PriLOSEC] 40 mg PO DAILY@0630 #30 capsule. 06/20/17 [Rx] Sennosides/Docusate Sodium [Senna Plus] 2 each PO BID PRN #60 tablet 06/20/17 [ Rx] predniSONE [PredniSONE] 10 mg PO DAILY #30 tablet 06/20/17 [Rx] Allergies/Adverse Reactions: 3 Allergy/AdvReac Type Severity Reaction Status Date / Time amiodarone Allergy Nausea Verified 05/02/17 23:35 Penicillins Allergy Hives Verified 05/02/17 23:35 Pneumococcal Vaccine Allergy See Verified 05/02/17 23:35 Comments Streptomycin Allergy Anaphylaxis Verified 05/02/17 23:35 Tetanus Vaccines and Toxoid Allergy See Verified 05/02/17 23:35 Comments Date of admission: 06/15/17 02:54 Primary care physician: PCP NONE Consults: 06/15/17 09:58 Consult to Clinical Program Coordinator [CONS] Routine Reason for SW Consult: Patient from [facility] 06/15/17 10:57 Consult to Physical Therapy [CONS] Routine Comment: Evaluate, develop and implement POC Reason for Consult: weakness OT [Consult to Occupational Therapy] [CONS] Routine Comment: Evaluate, develop and implement POC Reason for Consult: weakness 06/15/17 14:54 Consult to Physician [CONS] Routine Consulting Provider: Mike Romano Reason for Consult: Post op infection, Left hip pain Time Notified: 14:56 Call Completed: Yes 06/19/17 17:59 Consult to Infectious Diseases [CONS] Routine Consulting Provider: [facility] [place] Reason for Consult: Abx management after discharge Message sent Time Notified: 14:40 Call Completed: Yes Discharging clinician: Brandon Melo Anticipated date of discharge: 06/20/17 - Patient Status Disposition: Transfer Inpatient Rehab Fac Condition: Fair Functional capacity at discharge: uses cane/walker Overall status at discharge: patient is progressing back to baseline - Discharge Instructions Instructions: Diltiazem (By mouth), Prednisone (By mouth), Aspirin (By mouth), Laxative, Stimulant (By mouth), Omeprazole (By mouth), Metformin (By mouth), Cefepime (Injection), Heart Failure (DC), Atrial Fibrillation (DC), Urinary Tract Infection in Women (DC), Diabetes Mellitus Type 2 in Adults (DC), Sepsis ( DC), Debridement (DC), Debridement (GEN), Chronic Hypertension (DC), Precautions after Total Joint Replacement Surgery (DC), Anemia (GEN), Pneumonia (DC), Joint Replacement Surgery, 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 Romano in 1-2 weeks for staple removal and wound check Continue dressing changes Work with physical therapy, Weightbearing as tolerated on the bilateral lower extremities - Diet and Activity Activity: as per physical therapy, increase activity as tolerated Diet: diabetic diet, low fat, low cholesterol Hospital course: Ms. Gunn is a 81 year old female with a PMH of CHF, A fib, and recent discharge from [facility] April 2017 to an ECF after an ORIF due to left femoral fracture. She was started on Doxycycline for 7 days on 06/08/17 due to concern for left femur drainage. Patient was sent from the ECF after she had an abnormal chest x-ray with low left lung volumes and possible plug or obstruction. CT chest showed bilateral small pleural effusions more on the left than the right with possible atelectases, could not exclude pneumoniaPatient noted to be in A fib RVR and was started on Cardizem drip. Her BNP was 304, she had rales on exam, and bilateral pedal edema on admission. She met 2 SIRS criteria with WBC 13.6, tachycardia HR 120, and sepsis secondary to left hip infection vs. PNA. CT left hip revealed single locule of gas and fluid collections along the surgical scar. Ortho/ Dr. Romano was consulted and performed both preoperative wound aspirate 06/15/17 and intra-operative deep wound culture 06/17/17 which revealed Pseudomonas aeruginosa with sensitivity to IV antibiotics. Patient was started on Cefepime IV and Power glide access was placed. ID consulted and recommended 2 week duration of treatment on Cefepime IV. Patient instructed to continue weight bearing as tolerated on the bilateral lower extremities and follow up with ortho with in 1 -2 weeks of discharge for wound reassessment. - Time Spent with Patient Total time spent providing and/or coordinating discharge services: - Constitutional Vitals: Temp Pulse Resp BP Pulse Ox 97.4 F L 90 16 129/72 96 06/20/17 11:39 06/20/17 11:39 06/20/17 11:39 06/20/17 11:39 06/20/17 11:39 General appearance: Present: cooperative, A&O X 2, pleasant, no acute distress, answers questions appropriately - Head Head exam: Present: atraumatic, normal inspection, normocephalic - Eye Eye exam: Present: EOMI, conjuntiva pink, sclera anicteric - ENT ENT exam: Present: mucous membranes moist, normal oropharynx - Neck Neck exam general surgery: Present: lymphadenopathy, normal inspection, supple, trachea midline - Respiratory Respiratory exam: Present: CTAB. Absent: rhonchi, wheezes - Cardiovascular Cardiovascular exam: Present: irregular rhythm, +S1, +S2 - GI/Abdominal GI/Abdominal exam: Present: hernia (diastasis recti), normal bowel sounds, tenderness. Absent: distended, guarding, rebound - Additional comments: donohue in place - Extremities Exam Extremities exam: Present: full ROM. Absent: pedal edema Additional comments: mild serosanguinouss drainage on left hip dressing, hemovac drain removed - Incison Incision: Present: serosanguinous (mild serosanguinouss drainage on left hip dressing, hemovac drain removed) - Neurological Exam Neurological exam: Present: alert, altered (A&Ox2, baseline), no focal deficits. Absent: speech deficit - Psychiatric Psychiatric exam: Present: normal affect, normal mood - Skin Additional comments: mild serosanguinouss drainage on left hip dressing, hemovac drain removed - VTE Documentation of Mechanical Device: Venous foot pump, device <Yazmin Childs - Last Filed: 06/20/17 18:15> Date of Encounter: 06/20/17 Date of admission: 06/15/17 02:54 Primary care physician: PCP NONE Consults: 06/15/17 09:58 Consult to Clinical Program Coordinator [CONS] Routine Reason for SW Consult: Patient from [facility]; [facility] 06/15/17 10:57 Consult to Physical Therapy [CONS] Routine Comment: Evaluate, develop and implement POC Reason for Consult: weakness OT [Consult to Occupational Therapy] [CONS] Routine Comment: Evaluate, develop and implement POC Reason for Consult: weakness 06/15/17 14:54 Consult to Physician [CONS] Routine Consulting Provider: Mike Romano Reason for Consult: Post op infection, Left hip pain Time Notified: 14:56 Call Completed: Yes 06/19/17 17:59 Consult to Infectious Diseases [CONS] Routine Consulting Provider: Infectious Disease [place] Reason for Consult: Abx management after discharge Message sent Time Notified: 14:40 Call Completed: Yes Hospital course: Ms. Gunn is a 81 year old female - Time Spent with Patient Total time spent providing and/or coordinating discharge services: - Constitutional Vitals: Temp Pulse Resp BP Pulse Ox 98.3 F 77 16 110/47 100 06/20/17 15:58 06/20/17 15:58 06/20/17 15:58 06/20/17 15:58 06/20/17 15:58 - Attending Attestation I have seen and examined the patient independently. I have discussed with resident physician Dr Melo regarding the management plan. Agree with the documentation. Patient admitted for A Fib RVR, she was also found hematoma on left hip, with infection with Pseudomonas. Orthopedic consult was called and patient has been drained for the hematoma. Patient to need IV cefepime for at least 2 weeks per orthopedic and ID consult. Her A. fib gets good rate control now. She will be discharged to shelter with IV antibiotics. Her xarelto has been switched to aspirin because of hematoma. Patient needs to follow up with ID and orthopedic as outpatient
[2017-06-20] MEDS: Cefepime HCl 2,000 MG in Water for inj. (sterile) 10 ML IVP SCH (14:54)
[2017-06-20 16:03] VITALS: BP 110/47
--- NOTE | 2017-06-20 17:19 | Physician Discharge Referral ---
ExtendedCare Referral Info Transfer To: SNF/ ECF Provider in Charge: Yazmin Childs Provider in Charge after Transfer: PCP Institutional Level of Care: Skilled - Diagnosis (1) Wound infection after surgery Priority: Primary Status: Acute (2) Sepsis Priority: Primary Status: Suspected (3) Healthcare-associated pneumonia Priority: Primary Status: Acute (4) Acute encephalopathy Priority: Primary Status: Acute (5) Atrial fibrillation with RVR Priority: Primary Status: Chronic (6) CHF (congestive heart failure) Priority: Primary Status: Acute (7) Hypertension Priority: Secondary Status: Chronic (8) Hyperlipidemia Priority: Secondary Status: Chronic (9) DM type 2 (diabetes mellitus, type 2) Priority: Secondary Status: Chronic (10) Polymyalgia rheumatica Priority: Primary Status: Acute (11) DVT prophylaxis Priority: Secondary Status: Acute Prognosis: Good Aware of Diagnosis: Patient, Family Aware of Prognosis: Patient, Family - Transfer Medications Prescriptions: Aspirin 325 mg PO DAILY #30 tablet Cefepime HCl/Dextrose, Iso-Osm [Cefepime 2 gm Injection] 2 gm IV DAILY 14 Days mls Diltiazem HCl [Diltiazem ER] 120 mg PO Q24H #30 cap.er.deg Metformin HCl [Metformin HCl ER] 500 mg PO DAILY #30 [id number] Omeprazole [PriLOSEC] 40 mg PO DAILY@0630 #30 capsule.dr predniSONE [PredniSONE] 10 mg PO DAILY #30 tablet Sennosides/Docusate Sodium [Senna Plus] 2 each PO BID PRN #60 tablet PRN Reason: Constipation Home Medications: Atorvastatin Calcium [Lipitor] 20 mg PO DAILY 05/02/17 [History] Calcium Carbonate/Vitamin D3 [Oyster Shell Calcium-Vit D Tab] 1 tab PO DAILY [History] Cholecalciferol (Vitamin D3) [Vitamin D3] 1,000 unit PO DAILY 05/02/17 [History] Cyanocobalamin (Vitamin B-12) [Vitamin B-12] 1,000 mcg SL DAILY 05/02/17 [ History] Duloxetine HCl [Cymbalta] 60 mg PO DAILY 05/02/17 [History] Folic Acid 1 mg PO DAILY 05/02/17 [History] Levothyroxine [Synthroid] 100 mcg PO DAILY 05/02/17 [History] Magnesium Oxide [Magnesium] 400 mg PO DAILY 05/02/17 [History] Omeprazole 20 mg PO DAILY 05/02/17 [History] Potassium Chloride [K-Tab ER] 20 meq PO DAILY 05/02/17 [History] Sotalol [Betapace] 80 mg PO Q12HR 05/02/17 [History] Docusate [Colace] 100 mg PO BID PRN capsule 05/08/17 [Rx] HYDROcodone/Acet 10/325 mg [[place] 10-325 mg] 1 tab PO Q4H PRN #20 tablet [Rx] Methocarbamol [Robaxin] 750 mg PO Q8HR #30 tablet 05/09/17 [Rx] Acetaminophen [Tylenol] 650 mg PO Q6HR PRN tablet 06/20/17 [Rx] Aspirin 325 mg PO DAILY #30 tablet 06/20/17 [Rx] Cefepime HCl/Dextrose, Iso-Osm [Cefepime 2 gm Injection] 2 gm IV DAILY 14 Days mls 06/20/17 [Rx] Diltiazem HCl [Diltiazem ER] 120 mg PO Q24H #30 cap.er.deg 06/20/17 [Rx] Metformin HCl [Metformin HCl ER] 500 mg PO DAILY #30 [id number] 06/20/17 [Rx] Omeprazole [PriLOSEC] 40 mg PO DAILY@0630 #30 capsule. 06/20/17 [Rx] Sennosides/Docusate Sodium [Senna Plus] 2 each PO BID PRN #60 tablet 06/20/17 [ Rx] predniSONE [PredniSONE] 10 mg PO DAILY #30 tablet 06/20/17 [Rx] Allergies/Adverse Reactions: 3 Allergy/AdvReac Type Severity Reaction Status Date / Time amiodarone Allergy Nausea Verified 05/02/17 23:35 Penicillins Allergy Hives Verified 05/02/17 23:35 Pneumococcal Vaccine Allergy See Verified 05/02/17 23:35 Comments Streptomycin Allergy Anaphylaxis Verified 05/02/17 23:35 Tetanus Vaccines and Toxoid Allergy See Verified 05/02/17 23:35 Comments - Respiratory Orders Smoking Cessation: Smoking cessation has been advised. For more information, call the [place] Tobacco Quit Line at 3-542-UWOH-NOW. - Ancillary Orders May use pressure relief devices daily prn - Advance Directives Code Status: DNR-Comfort Care - Mobility Orders Chair, Ambulate (with walker) - Rehabiliation Orders Rehab Potential: Good Rehab Orders: ROM Exercises, Evaluation for Physical Therapy, Evaluation for Occupational Therapy Other: Work with physical therapy, Weightbearing as tolerated on the bilateral lower extremities - Treatments Skin tear care topically daily PRN per policy, May check for fecal impaction rectally daily PRN, Fleet enema rectally every other day PRN cleansing purposes List/Other: Stop Pioglitazone permanently Cut Metformin dose down to 500mg daily Stop Xarelto and take Aspirin 325mg daily Continue Cefepime IV for 2 more weeks Follow up with infectious disease within 2 weeks Schedule follow up appointment with ortho/ Dr. Romano in 1-2 weeks for staple removal and wound check - Diet Orders Cardiac CERTIFICATION: I certify that the transfer of the above named patient to an Extended Care Facility is necessary for the continuing treatment of the diagnosis listed. The above information is true and accurate reflection of patient's current condition. Confidential - Redisclosure prohibited without a patient's written consent.
--- NOTE | 2017-06-21 08:36 | Infectious Disease Consult ---
Date of Encounter: 06/20/17 Time of Encounter: 15:30 Assessment and Plan (1) Sepsis Status: Resolved Assessment and plan: The patient had two SIRS criteria on admission. Likely secondary to left hip infection. Improved. Leukocytosis improved. Tachycardia has resolved. Blood cultures drawn 06/15/17 are NGTD x 2 sets. Qualifiers: Sepsis type: Pseudomonas Qualified Code(s): A41.52 - Sepsis due to Pseudomonas (2) Wound infection after surgery Status: Acute Assessment and plan: Location: Left hip. Causative organism Pseudomonas aeruginosa. Secondary to recent hip surgery. Status post left femur ORIF 04/2017. Failed outpatient oral antibiotics. CT of the LLE showed fluid collections with gas adjacent to the surgical site. Ortho consulted and following. Status post I & D 06/17/17. Large hematoma noted. No purulence. No penetration of the fascia or hardware involvement noted. Intra- op cultures for Pseudomonas aeruginosa as well. Unfortunately, the strain of bacteria is resistant to oral antibiotics. We will have to treat with IV antibiotics for the entire course. Continue Cefepime 2 grams IV Q12H. Duration of treatment depends on the clinical picture. Unfortunately, the strain of bacteria prevents us from being able to utilize oral antibiotics so we will have to use IV antibiotics for the entire duration. The patient has hardware near the site of infection, but it does not appear to be involved. We will need to be aggressive in treating this infection to avoid seeding of the hardware. I recommend at least two weeks of IV antibiotics, but she may need up to four. We will follow how the patient does clinically and her inflammatory markers to help us decide the exact duration of treatment. Continue IV antibiotics until seen by ID. Monitor renal function and dose-adjust antibiotics. Get weekly CBC, BUN/Cr, ESR, and CRP every Monday. Weekly EPIV care. Follow up with ID in two weeks. Qualifiers: Encounter type: initial encounter Qualified Code(s): T81.4XXA - Infection following a procedure, initial encounter (3) Pneumonia Status: Suspected Assessment and plan: Etiology unclear. Clinically, the patient has no symptoms of PNA. Repeat CXR 06/17/17 showed improved left pleural effusion and left basilar opacity. Continue antibiotics as above. Qualifiers: Pneumonia type: due to other aerobic Gram-negative bacteria Laterality: left Lung location: lower lobe of lung Qualified Code(s): J15.6 - Pneumonia due to other Gram-negative bacteria (4) Altered mental status Status: Resolved Assessment and plan: Likely secondary to sepsis. Improved. Qualifiers: Altered mental status type: somnolence Qualified Code(s): R40.0 - Somnolence (5) Atrial fibrillation with RVR Status: Chronic Assessment and plan: Chronic a-fib with RVR secondary to sepsis. RVR has resolved. Anticoagulation per the primary team. (6) Hypertension Status: Chronic Qualifiers: Hypertension type: essential hypertension Qualified Code(s): I10 - Essential (primary) hypertension (7) Polymyalgia rheumatica Status: Chronic Assessment and plan: Daily chronic steroids per the primary team. (8) DM type 2 (diabetes mellitus, type 2) Status: Chronic Assessment and plan: Hgb A1C 5.3. Recommend aggressive glucose monitoring and control to promote wound healing and prevent re-infection. Management per the primary team. Qualifiers: Diabetes mellitus complication status: without complication Diabetes mellitus skilled nursing insulin use: without director long term care use Qualified Code(s): E11.9 - Type 2 diabetes mellitus without complications (9) Hyperlipidemia Status: Chronic Qualifiers: Hyperlipidemia type: unspecified Qualified Code(s): E78.5 - Hyperlipidemia , unspecified Infectious Disease HPI - Data of Consult Patient: new to practice Consult date: 06/20/17 Requesting Physician: Yazmin Childs MD Primary Care Provider: PCP NONE - Consult Narrative Reason for consult: Infected Hematoma History of present illness: Ms. Gunn is a 81 year old female a past medical history of A. fib, CVA, hypothyroidism, hypertension, type 2 diabetes, DVT, recurrent UTIs, polymyalgia rheumatica, and left femur fracture status post ORIF in April 2017. The patient was admitted to the hospital June 15 for altered mental status. We are consulted June 20 for further recommendations regarding postop hematoma infection. reflect, the patient is an 81-year-old female with past medical history as stated above. She is somewhat of a poor historian, therefore, most of the information is obtained from the medical record and her son who is at the bedside. Apparently, the patient has had some altered mental status for about a week prior to admission. She had a chest x-ray at the [facility] where she was staying and it showed possible pneumonia so she was transported to a local ER. The patient had also been complaining of increased hip pain so she was transferred here for further evaluation by her surgeon. According to the medical record, the patient was evaluated on June 08 by orthopedics and noted to have some drainage from her surgical incision and was started on a seven-day course of oral doxycycline. On arrival here, the patient was afebrile, but she was tachycardic. She also had leukocytosis. A CT of the lower survey showed several fluid collections adjacent to the surgical scar with locules of gas and soft tissue stranding. Orthopedics was consulted and attempted a bedside aspiration, but was only able to get is very small amount of dark thick blood. It was sent for culture came back positive for Pseudomonas. Blood cultures were obtained 2 sets are no growth to date. He was started on empiric IV antibiotics. She was taken to the operating room on June 17 and had an I&D of the left proximal thigh. The operative note was reviewed and there was a large hematoma that was evacuated, but no gross purulence. It does not appear that the infection penetrate the fascia. Pathology showed fat necrosis and granulation tissue. Cultures were positive for Pseudomonas, resistant for quinolones. Her leukocytosis has resolved. She has been afebrile. Tachycardia has resolved as well. We've been asked to evaluate and make further recommendations. during my exam today, the patient's is unable to provide me with any information leading up to the hospitalization. She does tell me that she was having some subjective fevers and chills and currently, she denies any fevers or chills or rigors. She denies any headache or neck pain. She denies any congestion, earache, or sore throat. She denies any chest pain, shortness of breath, or cough. She denies any nausea, vomiting, diarrhea, constipation. She currently has a Moscoso catheter that is patent and draining clear yellow urine. She reports some mild pain in her left hip, worse with movement. She denies any oral thrush or skin lesions. CC: Yazmin Childs MD Past Med Surg Social Fam HX - Past Medical History Attestation: Yes The following information was validated with the patient. Source: patient, old records reviewed, nursing notes reviewed Medical history: atrial fibrillation (On sotalol and Xarelto), CVA, diabetes ( Not insulin-dependent), hyperlipidemia, hypertension, thyroid disease ( Hypothyroidism), other (DVT, iron deficiency anemia, recurrent UTIs, TIAs and CVAs) Psychiatric history: depression - Past Surgical History Surgical History: hysterectomy, orthopedic, other (L femur ORIF) - Social History Smoking Status: Former smoker Alcohol use: none Drug use: none Occupational status: unemployed Current living situation: [facility] Activity Level: Uses cane/walker Recent Out of Country Travel Within the Last 8 Weeks: No Exposure or Possible Exposure to Illness During Travel: No - Family History Sister Living Status: Hx Family Cancer: Yes Mother Living Status: Hx Family Cancer: Yes (leukemia) Infectious Disease-CN:Meds Atorvastatin Calcium [Lipitor] 20 mg PO DAILY 05/02/17 [History] Calcium Carbonate/Vitamin D3 [Oyster Shell Calcium-Vit D Tab] 1 tab PO DAILY [History] Cholecalciferol (Vitamin D3) [Vitamin D3] 1,000 unit PO DAILY 05/02/17 [History] Cyanocobalamin (Vitamin B-12) [Vitamin B-12] 1,000 mcg SL DAILY 05/02/17 [ History] Duloxetine HCl [Cymbalta] 60 mg PO DAILY 05/02/17 [History] Folic Acid 1 mg PO DAILY 05/02/17 [History] Levothyroxine [Synthroid] 100 mcg PO DAILY 05/02/17 [History] Magnesium Oxide [Magnesium] 400 mg PO DAILY 05/02/17 [History] Omeprazole 20 mg PO DAILY 05/02/17 [History] Potassium Chloride [K-Tab ER] 20 meq PO DAILY 05/02/17 [History] Sotalol [Betapace] 80 mg PO Q12HR 05/02/17 [History] Docusate [Colace] 100 mg PO BID PRN capsule 05/08/17 [Rx] HYDROcodone/Acet 10/325 mg [[place] 10-325 mg] 1 tab PO Q4H PRN #20 tablet [Rx] Methocarbamol [Robaxin] 750 mg PO Q8HR #30 tablet 05/09/17 [Rx] Acetaminophen [Tylenol] 650 mg PO Q6HR PRN tablet 06/20/17 [Rx] Aspirin 325 mg PO DAILY #30 tablet 06/20/17 [Rx] Cefepime HCl/Dextrose, Iso-Osm [Cefepime 2 gm Injection] 2 gm IV DAILY 14 Days mls 06/20/17 [Rx] Diltiazem HCl [Diltiazem ER] 120 mg PO Q24H #30 cap.er.deg 06/20/17 [Rx] Metformin HCl [Metformin HCl ER] 500 mg PO DAILY #30 [id number] 06/20/17 [Rx] Omeprazole [PriLOSEC] 40 mg PO DAILY@0630 #30 capsule. 06/20/17 [Rx] Sennosides/Docusate Sodium [Senna Plus] 2 each PO BID PRN #60 tablet 06/20/17 [ Rx] predniSONE [PredniSONE] 10 mg PO DAILY #30 tablet 06/20/17 [Rx] 3 Allergy/AdvReac Type Severity Reaction Status Date / Time amiodarone Allergy Nausea Verified 05/02/17 23:35 Penicillins Allergy Hives Verified 05/02/17 23:35 Pneumococcal Vaccine Allergy See Verified 05/02/17 23:35 Comments Streptomycin Allergy Anaphylaxis Verified 05/02/17 23:35 Tetanus Vaccines and Toxoid Allergy See Verified 05/02/17 23:35 Comments All systems: reviewed and no additional remarkable complaints except as stated Exam - Constitutional Vitals: Temp Pulse Resp BP Pulse Ox 98.3 F 77 16 110/47 100 06/20/17 15:58 06/20/17 15:58 06/20/17 15:58 06/20/17 15:58 06/20/17 15:58 General appearance: average body habitus, cooperative, no acute distress - Head Head exam: Present: atraumatic, normal inspection, normocephalic - Eye Eye exam: Present: EOMI, normal appearance, PERRL Pupils: Present: normal accommodation - ENT ENT exam: Present: mucous membranes moist - Neck Neck exam: Present: normal inspection - Respiratory Respiratory exam: Present: CTAB. Absent: rales, respiratory distress, rhonchi, wheezes - Cardiovascular Cardiovascular exam: Present: irregular rhythm. Absent: tachycardia - GI/Abdominal GI/Abdominal exam: Present: normal bowel sounds, soft. Absent: distended, tenderness Additional comments: Moscoso catheter noted to be draining clear yellow urine. - Extremities Exam Extremities exam: Present: pedal edema (1+ BLE), tenderness (Left hip). Absent : joint swelling Additional comments: Left hip surgical incision with yovani intact and wound edges well- approximated. Drain site noted above the surgical incision. Moderate amount of bloody drainage noted on the dressing, but no active bleeding noted at this time. - Neurological Exam Neurological exam: Present: alert, no focal deficits. Absent: oriented X3 ( Oriented x 2) - Psychiatric Psychiatric exam: Present: normal affect, normal mood - Skin Skin exam: Present: dry, intact, normal color, warm Infectious Disease CN: Results - Labs CBC & Chem 7: 06/20/17 05:20 06/20/17 05:20 Cultures: Cultures 06/17/17 19:00 Surgical Biopsy Culture - Final Other-Specify in Comments 06/17/17 19:00 Wound Culture - Final Left Thigh No growth. 06/17/17 19:00 Anaerobic Culture - Preliminary Left Hip At this time, no anaerobic growth is present. The culture will be finalized after 5 days of incubation. 06/17/17 19:00 Anaerobic Culture - Preliminary Other-Specify in Comments At this time, no anaerobic growth is present. The culture will be finalized after 5 days of incubation. 06/17/17 19:00 Anaerobic Culture - Preliminary Other-Specify in Comments At this time, no anaerobic growth is present. The culture will be finalized after 5 days of incubation. 06/15/17 04:52 Blood Culture - Final Peripheral Venipuncture No growth. 06/15/17 04:52 Blood Culture - Final Peripheral Venipuncture No growth. 06/17/17 19:00 Wound Culture - Final Other-Specify in Comments Pseudomonas aeruginosa 06/15/17 17:15 Body Fluid Culture - Final Other-Specify in Comments Pseudomonas aeruginosa Serology: Serology 06/15/17 Range/Units 14:40 Urine Color Yellow (Yellow) Urine Clarity Clear (Clear) Urine pH 5.5 (5.0-8.0) pH Units Ur Specific [place] > 1.030 H (1.010-1.025) Urine Protein Trace (Neg-Trace) mg/dL Urine Glucose (UA) Normal (Normal) mg/dL Urine Ketones Negative (Negative) mg/dL Urine Blood Negative (Negative) Urine Nitrite Negative (Negative) Urine Bilirubin Negative (Negative) Urine Urobilinogen Normal (Normal) mg/dL Ur Leukocyte Esterase Negative (Negative) Urine Microscopic RBC 3-5 H (0-3) per hpf Urine Microscopic WBC 3-5 H (0-3) per hpf Ur Squamous Epith Cells Many H (None-Few) per lpf Urine Bacteria None Seen (None-Few) per hpf Hyaline Casts None Seen (None-Few) per lpf Ur Culture Indicated? NO (NO) - VTE Documentation of Mechanical Device: Venous foot pump, device Consult Discharge Plan - Plan Instructions: Diltiazem (By mouth), Prednisone (By mouth), Aspirin (By mouth), Laxative, Stimulant (By mouth), Omeprazole (By mouth), Metformin (By mouth), Cefepime (Injection), Heart Failure (DC), Atrial Fibrillation (DC), Urinary Tract Infection in Women (DC), Diabetes Mellitus Type 2 in Adults (DC), Sepsis ( DC), Debridement (DC), Debridement (GEN), Chronic Hypertension (DC), Precautions after Total Joint Replacement Surgery (DC), Anemia (GEN), Pneumonia (DC), Joint Replacement Surgery, 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 Romano in 1-2 weeks for staple removal and wound check Continue dressing changes Work with physical therapy, Weightbearing as tolerated on the bilateral lower extremities Referrals: NONE,PCP [Primary Care Provider] - iMke Romano MD [Partnered Physician] - 07/04/17 2:00 pm Prescriptions: Aspirin 325 mg PO DAILY #30 tablet Cefepime HCl/Dextrose, Iso-Osm [Cefepime 2 gm Injection] 2 gm IV DAILY 14 Days mls Diltiazem HCl [Diltiazem ER] 120 mg PO Q24H #30 cap.er.deg Metformin HCl [Metformin HCl ER] 500 mg PO DAILY #30 [id number] Omeprazole [PriLOSEC] 40 mg PO DAILY@0630 #30 capsule.dr predniSONE [PredniSONE] 10 mg PO DAILY #30 tablet Sennosides/Docusate Sodium [Senna Plus] 2 each PO BID PRN #60 tablet PRN Reason: Constipation
== END 2017-06-20 19:25 | DRG 856 ==
LOC: 2NENU → SUATTDRO 06-15 02:54
PROVIDERS: ADMIT Pediatrics; ATTEND Internal Medicine